=== PATIENT | female | born 1950 | race Caucasian/White ===

== ENCOUNTER 2022-02-10 12:39 | Outpatient (RCR) | payer MEDICARE, SELFPAY ==
--- NOTE | 2022-06-14 08:27 | ONC.NURNOTE ---
Prescription for mastectomy supplies faxed to [facility], .
== END 2022-08-09 23:59 | disposition home or self-care (01) ==
LOC: CCIC 12:39
PROVIDERS: PCP Emergency Medicine; Visit Provider Nurse Practitioner Family
DX: C50.912 Malignant neoplasm of unspecified site of left female breast (principal); Z17.0 Estrogen receptor positive status [ER+]; Z79.811 Long term (current) use of aromatase inhibitors; M85.80 Other specified disorders of bone density and structure, unspecified site
CPT/HCPCS: 99212; 99213; 99214

== ENCOUNTER 2022-03-22 09:28 | Outpatient (CLI) | payer MEDICARE, SELFPAY ==
[2022-03-22 14:32] LABS: Chloride* 92 mmol/L (96-114); Potassium* 4.6 mmol/L (3.6-5.1); Sodium* 129 mmol/L (135-149)
[2022-03-22 14:35] LABS: Blood Urea Nitrogen* 14 mg/dL (7-30); Carbon Dioxide* 29 mmol/L (20-32); Creatinine* 0.6 mg/dL (0.5-1.5); Estimated Glomerular Filt Rate 95 ml/min
[2022-03-22 14:36] LABS: Calcium* 9.5 mg/dL (8.4-10.6); Glucose* 89 mg/dL (60-115)
== END 2022-03-22 09:29 | disposition home or self-care (01) ==
LOC: LKVREF 09:28
PROVIDERS: PCP Emergency Medicine; Visit Provider Emergency Medicine
DX: E87.1 Hypo-osmolality and hyponatremia (principal); I10 Essential (primary) hypertension
CPT/HCPCS: 80048

== ENCOUNTER 2022-09-13 08:21 | Outpatient (CLI) | payer MEDICARE, SELFPAY | END 2022-09-13 08:22 | disposition home or self-care (01) | PROVIDERS: PCP Emergency Medicine; Visit Provider Emergency Medicine | DX: I10 Essential (primary) hypertension (principal); E87.1 Hypo-osmolality and hyponatremia; Z13.6 Encounter for screening for cardiovascular disorders | CPT/HCPCS: 80053; 80061 ==

== ENCOUNTER 2023-02-08 13:51 | Outpatient (RCR) | payer MEDICARE, SELFPAY | END 2023-08-07 23:59 | disposition home or self-care (01) | LOC: CCIC 13:51 | PROVIDERS: PCP Emergency Medicine; Visit Provider Physician Assistant | DX: C50.912 Malignant neoplasm of unspecified site of left female breast (principal); Z17.0 Estrogen receptor positive status [ER+]; Z79.811 Long term (current) use of aromatase inhibitors; Z90.13 Acquired absence of bilateral breasts and nipples; M85.80 Other specified disorders of bone density and structure, unspecified site | CPT/HCPCS: 99212; 99214; 99215 ==

== ENCOUNTER 2023-03-21 14:01 | Outpatient (CLI) | payer MEDICARE, SELFPAY | END 2023-03-21 14:02 | disposition home or self-care (01) | LOC: LKVREF 14:03 | PROVIDERS: PCP Emergency Medicine; Visit Provider Emergency Medicine | DX: Z01.818 Encounter for other preprocedural examination (principal) | CPT/HCPCS: 80048 ==

== ENCOUNTER 2023-03-22 09:03 | Outpatient (CLI) | payer MEDICARE, SELFPAY | END 2023-03-22 09:04 | disposition home or self-care (01) | PROVIDERS: PCP Emergency Medicine; Visit Provider Emergency Medicine | DX: Z00.00 Encounter for general adult medical examination without abnormal findings (principal); I10 Essential (primary) hypertension; E78.1 Pure hyperglyceridemia; R31.9 Hematuria, unspecified; Z13.6 Encounter for screening for cardiovascular disorders; Z13.1 Encounter for screening for diabetes mellitus | CPT/HCPCS: 80061; 80076; 82947 ==

== ENCOUNTER 2023-05-10 13:02 | Outpatient (CLI) | payer MEDICARE, SELFPAY ==
--- NOTE | 2023-05-10 13:30 | CRLHL7_ITS ---
For Patients: As a result of the Century Cures Act, medical imaging exams and procedure reports are released immediately into your electronic medical record. You may view this report before your referring provider. If you have questions, please contact your health care provider. DXA BONE MINERAL DENSITY STUDY Reason for exam: Osteopenia. Current height (inches): 65.0 Weight (lbs.): 145.0 Menopause age: 50 Ethnicity: White 1. Have you had a previous hip or vertebral fracture? No. 2. Have you had any fractures during your adult life which did not result from significant trauma (e.g., auto accident)? No. 3. Did either of your parents have a hip fracture? No. 4. Do you smoke? No. 5. Have you ever taken Glucocorticoids? No. 6. Do you have rheumatoid arthritis? No. 7. Do you have secondary osteoporosis? No. 8. Do you drink 3 or more alcoholic drinks per day? No. 9. Are you being treated for osteoporosis? No. 10. Have you ever taken any of the following medications: Actonel, Evista, Fosamax, Miacalcin, Reclast, Boniva, Forteo, HRT (i.e., estrogen/hormone therapy), Protelos, Prolia, Vitamin D, Calcium, other ??? please specify. ANSWER: Yes; vitamin D, calcium. 11. Do you have any of the following medical conditions: Anorexia or bulimia, asthma or emphysema, end stage renal disease, hyperparathyroidism, any seizure disorders, cancer, inflammatory bowel diseases, hysterectomy, other ??? please specify. ANSWER: Yes; cancer. 12. What was your maximum height (inches)? 66.5. 13. Do you perform weightbearing exercise regularly? Yes. 14. Do you regularly consume dairy products? Yes. 15. Do you drink caffeinated beverages? Yes. 16. At what age did your period start? 9. 17. Are you premenopausal? No. 18. How many full-term pregnancies have you had? 2. 19. Have you ever missed your period for more than 6 months in a row (not including or menopause)? No. TECHNIQUE: Bone mineral density study was performed using the [employer]. FINDINGS: The results of the study expressed as bone mineral density (BMD) are as follows: Lumbar Spine L1 to L2: BMD: 0.908 g/cm2. T-score: -0.6. Z-score: 1.6. Neck Left: BMD: 0.708 g/cm2. T-score: -1.3. Z-score: 0.8. Right: BMD: 0.701 g/cm2. T-score: -1.3. Z-score: 0.7. Total Left: BMD: 0.778 g/cm2. T-score: -1.3. Z-score: 0.4. Right: BMD: 0.785 g/cm2. T-score: -1.3. Z-score: 0.5. IMPRESSION: Osteopenia. COMPARISON: Compared with scan of 01/13/2021, the bone mineral density has increased by 2.5% at the spine and decreased by 0.1% at the hip. Compared with scan of 12/19/2018, the bone mineral density has decreased by 1.8% at the spine and increased by 5.6% at the hip. *Comparison exams done prior to 10/2019 were performed on different unit, [employer]. FRAX 10-year Fracture Risk Major Osteoporotic Fracture: 10% Hip Fracture: 1.9% Reported Risk Factors: [place] () Neck BMD = 0.701, BMI = 24.1 CHRISTIANO ALVARADO M.D. Diagnostic Radiologist [email or web address] Transcribed: 5:[address]/Dictated by: Christiano Alvarado MD @ 05/11/2023 8:16:00 AM (Electronically Signed)
== END 2023-05-10 13:03 | disposition home or self-care (01) ==
LOC: RAD 13:05
PROVIDERS: PCP Emergency Medicine; Visit Provider Nurse Practitioner Family
DX: M85.88 Other specified disorders of bone density and structure, other site (principal)
CPT/HCPCS: 77080

== ENCOUNTER 2023-05-15 12:17 | Outpatient (CLI) | payer MEDICARE, SELFPAY ==
--- OUTSIDE RECORDS SUMMARY | 2023-05-16 06:31 | XMS_ITS | Continuity of Care Document ---
Author Name Unknown Organization [facility] Address [address] [address] [place] [address] Phone Care Team Providers Care Buzzsaw Operator Name Role Phone Nicanor Hinds MD [...] Diagnoses Date Provider Providers Copied on Encounter [facility] [place], [address] [address], [place], [place], [id number], [place] tel:[phone] [facility] No Information 1 Lizet Vick. [address] [place] [address], [id number], [place]. tel:[phone] [facility], [address] [address], [place], [place], [id number], tel:[phone] [facility] No Information 0 Lizet Vick. [address]001 [facility], [address], [id number], . tel:[phone] [facility] [address] [address], [place], [place], [address], tel:[phone] [facility] Personal hx of colon polypColon polypDiverticu losis of colonHemorrhoi dsDiverticulos is Of ColonPersonal History Colon PolypsBenign Neoplasm ColonBenign neoplasm of colon, unspecifiedUns pecified hemorrhoidsDiv erticulosis of large intestine without perforation or abscess without bleedingPerson al history of colonic polyps Apr-1 5-201 5 No Information Referring Provider: [place], [address] [place], [address]. tel:[phone] [facility] [address] [address], [place], [place], [address], tel:[phone] [facility] Polyp-intes/re ct/stom-unc BehColon Cancer ScreeningFamil y Hx/Colonic PolypsRectal Polyp/BenignBe nign Neoplasm Lg Bowel Apr-0 5201 0 Orville Mcbride. [address] [facility] [address], [place], [place], [id number], [place]. tel:[phone] Referring Provider: Gar[place] Ponce [place] R, [address] [place], [address]. tel:[phone] [facility], [address] [address], [place], [place], [address], tel:[phone] [facility] No Information Jul-0 7-200 5 No Information Referring Provider: Garry Ponce [place] R, [address] [place], [address]. tel:[phone] Family History Family Member Type Diagnosis Age [...] No Information Instructions Date Instruction Additional Infor mation Colon Cancer Prevention Related to Colon polyp Colon Polyps Related to Colon polyp Diverticulosis/Diverticulitis Re lated to Colon polyp Hemorrhoids Related to Hemor rhoids High Fiber Diet Related to Hemor rhoids Assessments Type Assessment Date No Information Patient Care Teams Name Effective Dates (start - stop) Status Members No Information
== END 2023-05-15 12:18 | disposition home or self-care (01) ==
LOC: NFLDREF 05-16 06:30
PROVIDERS: PCP Emergency Medicine; Referring Provider Emergency Medicine; Visit Provider Physician Assistant
DX: R35.0 Frequency of micturition (principal); N39.0 Urinary tract infection, site not specified
CPT/HCPCS: 87086; 87186

== ENCOUNTER 2023-05-24 13:45 | Outpatient (CLI) | payer MEDICARE, SELFPAY ==
--- OUTSIDE RECORDS SUMMARY | 2023-05-24 13:48 | XMS_ITS | Clinical Summary ---
Author Name Unknown Organization [facility] Address [place], [place] [address] Care Team Providers Care Learning Designer Name Role Phone Nazia Morrison MD Primary Care Provider [phone] Allergies Active Allergy Reactions Criticality Noted Date Comments Unlisted Allergen (Include Detail In Comments) Rash,Edema 03/29/2023 Calcium Channel blockers, swelling in your feet and ankles Medications Medication Sig Dispensed Refills Start Date End Date Status multivit,iron,placer miner als/lutein (CENTRUM SILVER ULTRA WOMEN'S ORAL) Take 1 Tab by mouth once daily with lunch. 0 Active acetaminophen (TYLENOL EXTRA STRGTH) 500 mg tablet Take 1-2 tablets by mouth every 6 hours if needed (Headache). Max acetaminophen dose: 4000mg in 24 hrs. 0 05/23/2019 Active metoprolol tartrate (LOPRESSOR) 25 mg tabletIndications:H ypertension Take 1 tablet by mouth 2 times daily. 0 12/22/2019 Active calcium citrate/vitamin D2 (CALCIUM CITRATE WITH D ORAL) Take 1 tablet by mouth 2 times daily. 0 Active polyethylene glycol (MIRALAX) 17 g powder for solution Take 1 Packet by mouth once every other day. 0 Active aspirin (ECOTRIN) 81 mg enteric coated tabletIndications:I ntracranial aneurysm Take 1 tablet by mouth once daily with a meal. 0 07/05/2020 Active anastrozole (ARIMIDEX) 1 mg tablet Take 1 mg by mouth once daily. 0 11/08/2020 Active hydroCHLOROthiazide (HCTZ) 25 mg tablet Take 25 mg by mouth once daily. 0 01/23/2022 Active hydrocortisone 2.5% cream Apply topically to affected area(s) two times daily. APPLY TOPICALLY TO AFFECTED AREA(S) TWICE DAILY.* 0 01/04/2023 Active irbesartan (AVAPRO) 300 mg tablet Take 300 mg by mouth once daily. 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 IZA 12/30/2019 Antiplatelet or antithrombot ic long-term use: Clopidogrel/ASA 12/30/2019 Multiple intracranial aneurysms 04/08/2019 Overview: S/p endovascular WEB embolization of incidental 14mm ACOM aneurysm and 6.5mm right MCA bifurcation aneurysm on 05/22/2019. 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 WEB device is MRI compatible up to 3 Iza. HTN (hypertension) 04/08/2019 Former tobacco use 04/08/2019 History of breast cancer 11/05/2014 GERD (gastroesophageal reflux disease) 5 Osteopenia 08/10/2014 Encounters Date Type Department Care Team Description 03/30/2023 8:50 AM PROCESS SERVER - 03/30/2023 10:01 AM PROCESS SERVER Surgery [address] [address] Jaylen Raphael MD CYSTOSCOPY, RIGHT RETROGRADE PYELOGRAM, RIGHT URETEROSCOPY, RIGHT URETERAL STENT PLACEMENT 03/30/2023 8:39 AM PROCESS SERVER Anesthesia Event [address] [address] Sherrill Anglin MD Nolan Norman, Megan Maureen, MD 03/30/2023 6:57 AM PROCESS SERVER - 03/30/2023 12:42 PM PROCESS SERVER Hospital Encounter [address] [address] Jaylen Raphael MD Hydronephrosis, unspecified hydronephrosis type (Primary Dx) Discharge Disposition: Home Self Care 03/29/2023 Travel from Last 3 Months Immunizations Name Administration Dates Next Due COVID-19 vaccine (Moderna 100mcg/0.5mL) LISETTE ESTRADA 08/20/2020,07/23/2020 Social History Tobacco Use Types Packs/Day Years Used Date Smoking Tobacco: Former Cigarettes Q uit: 05/23/2017 Smokeless Tobacco: Never Tobacco Cessation:Counseling Given: Not Answered Alcohol Use Standard Drinks/Week Comments Yes 0 (1 standard drink = 0.6 oz pure alcohol) glass of wine maybe once per month Social Connections Answer Date Recorded Frequency of Communication with Friends and Fami ly Not on file 05/14/2021 Financial Resource Strain Answer Date R ecorded Difficulty of Paying Living Expenses Not on file 05/14/2021 Difficulty of Paying Living Expenses Not on file 05/14/2021 Sex and Gender Information Value Date Recorded Sex Assigned at Female 07/20/2020 10:05 AM PROCESS SERVER Gender Identity Female 07/20/2020 10:06 AM PROCESS SERVER Sexual Orientation Choose not to disclose 2020 10:48 AM PROCESS SERVER Obstetrics History Last Filed Vital Signs Vital Sign Reading Time Taken Comments Blood Pressure 130/66 03/30/2023 12:04 PM PROCESS SERVER Pulse 66 03/30/2023 12:04 PM PROCESS SERVER Temperature 36.4 ??C (97.6 ??F) 03/30/2023 12:[address] Respiratory Rate 16 03/30/2023 12:04 PM PROCESS SERVER Oxygen Saturation 99% 03/30/2023 12:04 PM PROCESS SERVER Inhaled Oxygen Concentration - - Weight 67.4 kg (148 lb 9.4 oz) 03/30/2023 7:27 A M PROCESS SERVER Height 165.1 cm (5' 5) 03/30/2023 7:27 AM PROCESS SERVER Body Mass Index 24.73 03/30/2023 7:27 AM PROCESS SERVER Plan of Treatment Health Maintenance Due Date Last Done Comments Tdap 1959 Depression screening for age 12+ 1960 BMI (ht and wt on same day) for age 18+ 1966 Hepatitis C screening for age 18-79 1966 Tetanus booster 1968 Lipids for age 45-75 1993 Zoster (shingles) series for age 50+ (1 of 2) 1998 DEXA/DXA scan for age 65+ 2013 Medicare Wellness for age 65+ 2013 Pneumococcal series for age 65+ (1 of 1 - PCV) 2013 COVID-19 vaccine series (3 - 2022-24 season) 2023 08/20/2020, 07/23/2020 Influenza for age 65+ 01/12/2023 Colonoscopy through age 75 11/30/203011/30, 11/30/2020, 11/30/2020 Medical Devices Implanted Type Area Adventure Therapist Device Identifier Shelf Expiration Date Model / Serial / Lot Stent Uret [id number] Percuflex Hydroplus - [id number] Implanted:Qty: 1 on 03/30/2023 by Jaylen Raphael MD at [facility] Right: [facility] 11/03/2025 [id number] / / [id number] Procedures Procedure Name Priority Date/Time Associated Diagnosis Comments XR RETROGRADE PYELOGRAM W/WO KUB Routine 03/30/2023 9:12 AM PROCESS SERVER SUPRAGLOTTIC-LMA Routine 03/30/2023 9:05 AM PROCESS SERVER CYSTOSCOPY PLACEMENT URETERAL STENT RETROGRADES 03/30/2023 8:29 AM PROCESS SERVER RIGHT HYRDRONEPHROSIS Case Notes AVERAGE - SWINGFLUOROSCOPY Special Needs 5 ft 5 in, 68 kg, BMI 24.96Last ASA 03/22/2023Restricted arm: LEFT CYSTOSCOPY RESECTION TRANSURETHRA BLADDER TUMOR 03/30/2023 8:29 AM PROCESS SERVER RIGHT HYRDRONEPHROSIS Case Notes AVERAGE - SWINGFLUOROSCOPY Special Needs 5 ft 5 in, 68 kg, BMI 24.96Last ASA 03/22/2023Restricted arm: LEFT SCAN-CARDIAC STRIP 03/30/2023 12:00 AM PROCESS SERVER from Last 3 Months Results * XR RETROGRADE PYELOGRAM W/WO KUB (03/30/2023 9:12 AM PROCESS SERVER) Anatomical Region Laterality Modality KIDNEYS, Abdomen Computed Radiog valorie 03/30/2023 9:12 AM PROCESS SERVER Narrative 03/30/2023 9:49 AM PROCESS SERVER For Patients: As a result of the Cures Act, medical imaging exams and procedure reports are released immediately into your electronic medical record. You may view this report before your referring provider. If you have questions, please contact your health care provider. EXAM: XR RETROGRADE PYELOGRAM W/WO KUB LOCATION: [facility] DATE: 03/30/2023 INDICATION: Right hydronephrosis. COMPARISON: None. TECHNIQUE: Exam performed by urologist. FLUOROSCOPIC TIME: 10 sec NUMBER OF IMAGES: 4 FINDINGS: 4 images taken during the course of right retrograde pyelogram, ureteroscopy and right ureteral stent placement. Stent in the appropriate position. No filling defects seen. Procedure Note Chriss Thakur MD - 03/30/2023 For Patients: As a result of the Cures Act, medical imagingexams and procedure reports are released immediately into your electronicmedical record. You may view this report before your referring provider.If you have questions, please contact your health care provider. EXAM: XR RETROGRADE PYELOGRAM W/WO KUB LOCATION: [facility] DATE: 03/30/2023 INDICATION: Right hydronephrosis. COMPARISON: None. TECHNIQUE: Exam performed by urologist. FLUOROSCOPIC TIME: 10 sec NUMBER OF IMAGES: 4 FINDINGS: 4 images taken during the course of right retrograde pyelogram,ureteroscopy and right ureteral stent placement. Stent in the appropriateposition. No filling defects seen. Jaylen Raphael MD GENERAL IMAGING * HCHG MASK PR5 (03/30/2023 9:05 AM PROCESS SERVER) Narrative William Nunes CRNA - 03/30/2023 9:05 AM PROCESS SERVER William Nunes CRNA ? 03/30/2023 ??9:06 AM Procedure: Supraglottic Patient location during procedure: OR Supraglottic Airway Properties Mask Ventilation: easy Type: unique Tube Size: 4 Placement Verification: auscultation and CO2 detection Assessment Assessment: atraumatic and dentition unchanged Sherrill Anglin MD ANESTHESIA PX NOTE ORDERABLES * SCAN-CARDIAC STRIP (03/30/2023 12:00 AM PROCESS SERVER) Narrative 03/30/2023 12:00 AM PROCESS SERVER Ordered by an unspecified provider. Other Clinical Staff OTHER from Last 3 Months Advance Directives Latest Code Status on File Code Status Date Activated Date Inactivated Comments Full Code 03/30/2023 7:18 AM 03/30/2023 2:48 PM Kaylee uld be discussed pre operatively with anesthesia or surgeon Question Answer Comments Code Status Discussion: Not Discussed Code Status History Code Status Date Activated Date Inactivated Comments Full Code 12/30/2019 6:01 AM 12/31/2019 1:16 PM Question Answer Comments Code Status Discussion: Discussed Full Code 05/22/2019 8:15 AM 05/23/2019 1:09 PM Question Answer Comments Code Status Discussion: Discussed Full Code 05/22/2019 5:53 AM 05/22/2019 8:15 AM Question Answer Comments Code Status Discussion: Other (specify i n comments): Will discuss on day of admission Care Teams Learning Designer Relationship Specialty Start Date End Date Nazia Morrison MD [address] [place] [address] PCP - General 04/07/19
--- OUTSIDE RECORDS SUMMARY | 2023-05-24 13:48 | XMS_ITS | Clinical Summary ---
Author Name Unknown Organization [facility] Address [address] [place] [address] Care Team Providers Care Biology Tutor Name Role Phone [facility], [facility] Primary Care Provider Allergies Active Allergy Reactions Criticality Noted Date Comments No Known Allergies 02/10/2003 Medications Medication Sig Dispensed Refills Start Date End Date Status Multiple Vitamins-Minerals (WOMENS MULTI PO) 0 Active Biotin 5000 MCG CAPS Take 1,000 mg by mouth 0 Active Wheat Dextrin (BENEFIBER PO) 0 Active losartan-hydrochloroth iazide (HYZAAR) 50-12.5 MG per tabletIndications:Edvin gn essential hypertension Take 1 tablet by mouth daily 30 tablet 12 10/08/2015 Active Calcium Carbonate-Vit D-Min (CALCIUM 1200 PO) Take 1 tablet by mouth daily 0 Active Active Problems Problem Noted Date Diagnosed Date History of breast cancer 11/05/2014 GERD (gastroesophageal reflux disease) 5 Hypertension goal BP (blood pressure) < 140/90 0 08/10/2014 Osteopenia 08/10/2014 Nevus 08/08/2013 Overview: Do you wish to do the replacement in the background? yes Vitamin D deficiency disease 07/04/2012 Advanced directives, counseling/discussion 05/25 Overview: Advance Directive Problem List Overview: Name Relationship Phone Primary Health Care Agent Alternative Health Care Agent Patient states has Advance Directive and will bring in a copy to clinic. 05/25/2011 CARDIOVASCULAR SCREENING; LDL GOAL LESS THAN 160 03/13/2010 Resolved Problems Problem Noted Date Diagnosed Date Resolved Date Benign hypertension 07/28/2010 08/11/19 15 Immunizations Name Administration Dates Next Due Influenza (High Dose) 3 carroll nt vaccine 01/27/2014 Influenza (IIV3) PF 01/23/2013, 1,02/06/2010, 008,03/11/2007,03/02/2006,04/26/2005 Pneumo Conj 13-V (2010&after) 10/08/2015 TD,PF 7+ (Tenivac) 11/03/1999 TDAP Vaccine (Adacel) 04/26/2010 Family History Medical History Relation Comments Substance Abuse Father Cerebrovascular Disease Maternal Grandfather Cerebrovascular Disease Maternal Grandmother Diabetes Maternal Grandmother Adult Onset Hypertension Maternal Grandmother Coronary Artery Disease Mother Diabetes Mother Borderline- adul t onset Hyperlipidemia Mother Hypertension Mother Substance Abuse Mother Colon Cancer Paternal Grandfather Relation Status Comments Daughter Alive Father Maternal Grandfather Maternal Grandmother Mother Alive Paternal Grandfather Paternal Grandmother Son Alive Social History Tobacco Use Types Packs/Day Years Used Date Smoking Tobacco: Former Cigarettes 30 Q uit: 03/09/2018 Smokeless Tobacco: Never Tobacco Cessation:Counseling Given: Yes Alcohol Use Standard Drinks/Week Comments No 0 (1 standard drink = 0.6 oz pur e alcohol) rarely PHQ-2 Answer Date Recorded PHQ-2 Score 0 05/21/2018 Adolescent Education Answer Date Record ed Getting School Help Needed Not on file 02/11 Sex and Gender Information Value Date Recorded Sex Assigned at Not on file Gender Identity Not on file Sexual Orientation Not on file Last Filed Vital Signs Vital Sign Reading Time Taken Comments Blood Pressure 162/86 04/07/2019 5:30 PM BOARD CERTIFIED MUSIC THERAPIST Pulse 76 04/07/2019 5:30 PM BOARD CERTIFIED MUSIC THERAPIST Temperature 37.2 ??C (98.9 ??F) 04/07/2019 3:27 PM CS T Respiratory Rate 16 04/07/2019 5:30 PM BOARD CERTIFIED MUSIC THERAPIST Oxygen Saturation 97% 04/07/2019 5:30 PM BOARD CERTIFIED MUSIC THERAPIST Inhaled Oxygen Concentration - - Weight 63.8 kg (140 lb 10.5 oz) 04/07/2019 3:27 PM BOARD CERTIFIED MUSIC THERAPIST Height 165.1 cm (5' 5) 03/28/2018 1:58 PM BOARD CERTIFIED MUSIC THERAPIST Body Mass Index 23.41 03/28/2018 1:58 PM BOARD CERTIFIED MUSIC THERAPIST Plan of Treatment Health Maintenance Due Date Last Done Comments ANNUAL REVIEW OF HM ORDERS 1948 CT COLONOGRAPHY 1950 FLEX SIG 1950 sDNA (Cologuard) 1950 COVID-19 Vaccine (#1) 1948 LUNG CANCER SCREENING 1998 RSV VACCINE ( & 60+) (1 - 1-dose 60+ series) 2008 FIT 05/25/2012 05/25/2011, 04/21/2010 ADVANCE CARE PLANNING 05/25/2016 05/25/2011 FALL RISK ASSESSMENT 10/07/2016 10/08/2015, 08/18/2014, 07/11/2013 MEDICARE ANNUAL WELLNESS VISIT 10/07/2016 10/08/2015, 08/18/2014, 07/11/2013, Additional history exists ZOSTER IMMUNIZATION (2 of 2) 11/08/2018 09/13/2018 LIPID 08/19/2019 08/18/2014, 06/15, 07/04/2012, Additional history exists BMP 10/06/2019 04/07/2019, 09/12, 08/18/2014, Additional history exists MAMMO SCREENING 12/13/2019 12/12/2017, 12/12, 07/13/2014, Additional history exists DTAP/TDAP/TD IMMUNIZATION (2 - Td or Tdap) 04/26/2020 04/26/2010, 11/03/1999 PHQ-2 (once per calendar year) 2022 10/08/2015 INFLUENZA VACCINE (#1) 2023 9, 01/14/2017, 01/24/2016, Additional history exists COLONOSCOPY 08/26/2024 08/26/2014, 0 09/2009, 07/18/2004, Additional history exists COLORECTAL CANCER SCREENING 08/26/2024 DEXA 04/26/2025 04/26/2010, 02/28/2004 HEPATITIS C SCREENING Completed 10/08/2015 Pneumococcal Vaccine: 65+ Years Completed 11/06/2016, 10/08/2015 HPV IMMUNIZATION Aged Out No longer e ligible based on patient's age to complete this topic IPV IMMUNIZATION Aged Out No longer e ligible based on patient's age to complete this topic MENINGITIS IMMUNIZATION Aged Out No l onger eligible based on patient's age to complete this topic RSV MONOCLONAL ANTIBODY Aged Out No l onger eligible based on patient's age to complete this topic Care Teams Biology Tutor Relationship Specialty Start Date End Date Clinic, [facility] [address] [place] [address] PCP - General 04/07/19
--- OUTSIDE RECORDS SUMMARY | 2023-05-24 13:48 | XMS_ITS | Referral Summary ---
Author Name Unknown Organization [facility] Address [address] [place] [address] Care Team Providers Care Regulated Program Manager Name Role Phone [facility], [facility] Primary Care Provider Allergies Active Allergy Reactions [...] 7+ (Tenivac) 11/03/1999 TDAP Vaccine (Adacel) 04/26/2010 Social History Tobacco Use Types Packs/Day Years [...] Comments Blood Pressure 162/86 04/07/2019 5:30 PM ONLINE MARKETING COORDINATOR Pulse 76 04/07/2019 5:30 PM ONLINE MARKETING COORDINATOR Temperature 37.2 ??C (98.9 ??F) 04/07/2019 3:27 PM CS T Respiratory Rate 16 04/07/2019 5:30 PM ONLINE MARKETING COORDINATOR Oxygen Saturation 97% 04/07/2019 5:30 PM ONLINE MARKETING COORDINATOR Inhaled Oxygen Concentration - - Weight 63.8 kg (140 lb 10.5 oz) 04/07/2019 3:27 PM ONLINE MARKETING COORDINATOR Height 165.1 cm (5' 5) 03/28/2018 1:58 PM ONLINE MARKETING COORDINATOR Body Mass Index 23.41 03/28/2018 1:58 PM ONLINE MARKETING COORDINATOR Plan of Treatment Not on file Care Teams Regulated Program Manager Relationship Specialty Start Date End Date Clinic, [facility] [address] [facility] [place] [address] PCP - General 04/07/19
--- OUTSIDE RECORDS SUMMARY | 2023-05-24 13:49 | XMS_ITS | Data Portability ---
Author Name Unknown Address [address] [place] [address] Phone [phone] Organization [facility] Address [address] [place] [address] Care Team Providers Care Chiropractor Sole Practitioner Name Role Phone PILAR MORRISON Primary Care Provider [phone] PILAR MORRISON Referring Provider [phone] Assessment Encounter Date Assessment Date Assessment LastModified by Organization Details LastModified Time 01/23/2023 01/23/2023 72 year old female with gross hematuria and right hydronephrosi s. Not available 01/23/2023 13:59:52 Plan of Treatment Reminders Order Date Submit Date Provider Last Modified By Organization Details Last Modified Time Details Appointments ESTABLISH ED VIDEO VISIT 15 2023 11:00A M Jaylen Raphael MD Not available Not available Not available Lab urinalysi s, dipstick 2022 023 [facility], [address], [place], [address], 01/23/2023 19:15:06 urinalysi s, microscop ic 2022 023 [facility], [address], [address], [place], [address], 01/23/2023 14:14:25 Referral None recorded. Procedures None recorded. Surgeries ureterosc opy with ureteral biopsy (SURG) 2022 023 elroy Not available 04/27/2023 08:50:57 Imaging None recorded. Medication Orders None recorded. Patient TargetsNo targets recorded. Patient Instructions Encounter Date Encounter Id Patient Instructions Last Modified By Organization Details Last Modified Time 01/23/2023 [id number] Gross hematuria/Right ureteral filling defect: We discussed the current guidelines as outlined by the [employer] regarding the evaluation of patients at risk for urothelial cell carcinoma. AUA Microscopic Risk Category: High Age > 60: Yes Smoking history of >30 pack years: No >25 RBC/HPF on single urine analysis: Yes History of gross hematuria: Yes Her CT urogram showed a filling defect in the right proximal ureter and I recommend a diagnostic ureteroscopy with possible biopsy of this. She will undergo a cystoscopy as part of this to evaluate the bladder as well. She understands the rationales, technical aspects, risks, and benefits and would like to proceed. Not available 01/23/2023 14:24:47 Reason for Referral None Reported. Results Created Date Observation Date Name Description Value Unit Range Abnormal Flag LastModifiedBy Organization Detail LastModifiedTime 01/24/2001/23/2023 UA WITHO UT MICRO - CS URISC AN blood - uriscan negati ve negati ve Not Available [facility] [address], [address], 01/23/2023 19:15:06 01/24/20 23 01/23/2023 UA WITHO UT MICRO - CS URISC AN bilirubin - uriscan negati ve mg/dL negati ve Not Available [facility] [address], [place], [address], 01/23/2023 19:15:06 01/24/20 23 01/23/2023 UA WITHO UT MICRO - CS URISC AN urobilinogen - uriscan normal mg/dL normal Not Available [facility] [address], [place], [address], 01/23/2023 19:15:06 01/24/20 23 01/23/2023 UA WITHO UT MICRO - CS URISC AN ketones - uriscan negati ve mg/dL negati ve Not Available [facility] [address] [facility] [address], [place], [address], 01/23/2023 19:15:06 01/24/20 23 01/23/2023 UA WITHO UT MICRO - CS URISC AN protein - uriscan negati ve mg/dL negati ve Not Available [facility] [address] [facility] [address], [place], [address], 01/23/2023 19:15:06 01/24/20 23 01/23/2023 UA WITHO UT MICRO - CS URISC AN nitrites - uriscan negati ve negati ve Not Available [facility] [address] [place] [address] [address], [place], [address], 01/23/2023 19:15:06 01/24/20 23 01/23/2023 UA WITHO UT MICRO - CS URISC AN glucose - uriscan negati ve mg/dL negati ve Not Available [facility] [address] [place] [address] [address], [place], [address], 01/23/2023 19:15:06 01/24/20 23 01/23/2023 UA WITHO UT MICRO - CS URISC AN pH - uriscan 5.00 5.00-9 .00 Not Available [facility] [address] [place] [address] [address], [place], [address], 01/23/2023 19:15:06 01/24/20 23 01/23/2023 UA WITHO UT MICRO - CS URISC AN sp. gravity - uriscan <=1.01 1.01-1 .03 Not Available [facility] [address] [place] [address] [address], [place], [address], 01/23/2023 19:15:06 01/24/20 23 01/23/2023 UA WITHO UT MICRO - CS URISC AN leukocytes - uriscan negati ve negati ve Not Available [facility] [address] [place] [address] [address], [place], [address], 01/23/2023 19:15:06 01/24/20 23 01/23/2023 UA WITHO UT MICRO - CS URISC AN color - uriscan yellow lt. yellow ;yello w Not Available [facility] [address] [facility] [address], [place], [address], 01/23/2023 19:15:06 01/24/20 23 01/23/2023 UA WITHO UT MICRO - CS URISC AN clarity - uriscan clear clear Not Available [facility] [address] [facility] [address], [place], [address], 01/23/2023 19:15:06 01/24/20 23 01/23/2023 UA WITHO UT MICRO - CS URISC AN total urine volume (mL) 45 /mL Not Available [facility] [address] [facility] [address], [place], [address], 01/23/2023 19:15:06 10/27/19 23 10/13/2022 CT, urogr am No observ ation record ed. Not Available 10/30/2022 15:22:36 03/30/20 23 03/30/2023 XR, pyelo gram No observ ation record ed. Formerly [facility] [address] [place], [address], 03/30/2023 11:06:03 Result Notes None recorded. Procedures Surgical History Date Name Laterality Status Provider Name and Address Organization Details Recorded Time 12/01/19 21 Diagnostic colonoscopy completed Not Available Health Note 01/19/2023 16:15:15 12/01/19 21 colonoscopy completed Venkata Meath kristian, [facility] 01/23/2023 14:38:09 04/17/20 20 Partial mastectomy completed Venkata Meath null, [facility] 01/23/2023 14:37:08 05/14/18 99 Partial mastectomy completed Venkata Meath null, [facility] 01/23/2023 14:37:32 Laparoscopy remove adnexa completed Not Available Health Note 01/19/2023 16:15:15 Imaging Results Imaging Date Name Status LastModified by Organiz ation Details LastModified Time 10/13/2022 CT, [facility]gram completed [email or web address] Information n ot available 10/30/2022 15:22:36 03/30/2023 XR, pyelogram [email or web address] [address], [place], [address], 03/30/2023 11:06:03 Procedure Notes None recorded. Medical Equipment None Reported. Allergies No known drug allergies Medications Name Sig Start Date Stop Date Status Note LastModified by Organization Details LastModified Time anastrozole 1 mg tablet 1mg 1/day active Not Available Not Availabl e Not Available cephalexin 500 mg capsule TAKE 1 CAPSULE BY MOUTH 3 TIMES DAILY FOR 5 DAYS* 01/23 completed Not Available Not Available Not Available hydrocortis one 2.5 % topical cream APPLY TOPICALLY TO AFFECTED AREA(S) TWICE DAILY.* active Not Available Not Available No t Available hydrochloro thiazide 25 mg tablet 25mg 1/day active Not Available Not Available No t Available mupirocin 2 % topical ointment APPLY TOPICALLY TO AFFECTED AREA(S) THREE TIMES DAILY FOR 2 WEEKS. active Not Available Not Available No t Available losartan 100 mg tablet TAKE ONE TABLET BY MOUTH DAILY active Not Available Not Available No t Available doxycycline hyclate 100 mg tablet TAKE ONE TABLET BY MOUTH TWICE DAILY 01/23 completed Not Available Not Available Not Available irbesartan 300 mg tablet 300mg 1/day active Not Available Not Available No t Available Tylenol Extra Strength 500 mg tablet 500mg 2 on occasion active Not Available Not Available No t Available metoprolol tartrate 25 mg tablet TAKE ONE TABLET BY MOUTH TWICE DAILY* active Not Available Not Available No t Available aspirin 81mg 1/day active Not Available Not Available No t Available metoprolol succ 25 mg-hydrochl orothiazide 12.5 mg tablet,ext. rel 24 hr 25mg 2/day active Not Available Not Available No t Available Centrum Silver Women 8 mg iron-400 mcg-50 mcg tablet Don? t know 1/day active Not Available Not Available No t Available Vitals Date Recorded Body weight Body mass index (BMI) Body height Provider Name and Address Organization Details Last Updated DateTime 01/23/2023 26211.80030 5346 g 25 kg/m2 165.1 cm Not Available Health Note 01/23/2023 09:06:20 Social History Question Answer Notes LastModified by Organizat ion Details LastModified Time Tobacco Smoking Status Former Smoker Not Available Health Note 01/19/2023 16:15:16 What Is Your Level Of Alcohol Consumption? Occasional Information not available 01/23/2023 What Is Your Level Of Caffeine Consumption? Moderate [email or web address] Information not available 01/19/2023 How Much Tobacco Do You Chew? None [email or web address] Information not available 01/19/2023 Do You Or Have You Ever Used E-cigarettes Or Vape? Never Used Electronic Cigarettes [email or web address] Information not available 01/19/2023 When Did You Quit Smoking? 1-5yearssincel [place] Information not available 01/23/2023 Number Of Pregnancies 2 [email or web address] Information not available 01/19/2023 Number Of Vaginal Deliveries 2 [email or web address] Information not available 01/19/2023 Number Of Caesarean Sections 0 [email or web address] Information not available 01/19/2023 Could You Be ? No [email or web address] Information not available 01/19/2023 What Was The Date Of Your Most Recent Tobacco Screening? 01/23/2023 [email or web address] Information not available 01/19/2023 Have You Ever Been Counseled For Unhealthy Alcohol Use? No Information not available 01/23/2023 What Is Your Relationship Status? Single [email or web address] Information not available 01/19/2023 Are You Sexually Active? No [email or web address] Information not available 01/19/2023 Do You Or Have You Ever Used Smokeless Tobacco? Never Used Smokeless Tobacco [email or web address] Information not available 01/19/2023 Do You Use Any Illicit Or Recreational Drugs? No [email or web address] Information not available 01/19/2023 Has Tobacco Cessation Counseling Been Provided? No Information not available 01/23/2023 How Many Years Have You Smoked Tobacco? 48 [email or web address] Information not available 01/19/2023 Do You Or Have You Ever Used Any Other Forms Of Tobacco Or Nicotine? No Information not available 01/23/2023 How Many Days In The Past Year Have You Consumed 4 Or More Drinks? 0 [email or web address] Information no t available 01/19/2023 Sex: Female Functional Status None recorded. Mental Status None recorded. Family History Relationship Description Onset Age of this Age Resolved Age Notes Maternal Grandmother Family history of diabetes mellitus Mother Family history of cardiac disorder Paternal Grandfather Family history of cancer Medical History Condition Response Sexually Transmitted Infection N Diabetes N Bleeding Disorder N High Blood Pressure Y Kidney Stones N Cancer Y Depression N Lung Disease N High Cholesterol N GERD/Acid Reflux Y Heart Disease N Gynecological History Statement/Question Response If Post Menopausal, Age at Menopause 38 Hormone Therapy N Sexually Active? N Obstetrics History GPAL:G 0 P 0 0 0 0 Immunizations Vaccine Type Date Status Provider Name and Address Organization Details Recorded Time SARS-COV-2 (COVID-19) vaccine, UNSPECIFIED 08/20/2020 completed Venkata Meath null, [facility] 01/23/2023 14:11:39 pneumococcal, unspecified formulation 05/14/2020 completed Venkata Meath null, [facility] 01/23/2023 14:11:39 influenza, unspecified formulation 01/12/2022 completed Venkata Meath null, [facility] 01/23/2023 14:11:39 zoster recombinant 07/12/2018 completed Venkata Meath null, [facility] 01/23/2023 14:11:39 zoster recombinant 09/13/2018 completed Venkata Meath null, [facility] 01/23/2023 14:11:39 influenza, high-dose, quadrivalent 01/13/2020 completed Venkata Meath null, [facility] 01/23/2023 14:11:39 influenza, high-dose, quadrivalent 01/14/2021 completed Venkata Meath null, [facility] 01/23/2023 14:11:39 influenza, high-dose, quadrivalent 01/20/2023 completed Venkata Meath null, [facility] 01/23/2023 14:11:39 influenza, high-dose, quadrivalent 02/06/2022 completed Venkata Meath null, [facility] 01/23/2023 14:11:39 COVID-19, mRNA, LNP-S, PF, 100 mcg/0.5mL dose or 50 mcg/0.25mL dose 07/23/2020 completed Venkata Meath null, [facility] 01/23/2023 14:11:39 COVID-19, mRNA, LNP-S, PF, 100 mcg/0.5mL dose or 50 mcg/0.25mL dose 08/20/2020 completed [facility] null, [facility] 01/23/2023 14:11:39 pneumococcal polysaccharide PPV23 11/06/2016 completed [facility] Meath null, [facility] 01/23/2023 14:11:39 Tdap 10/31/2016 completed [facility] Meath null, [facility] 01/23/2023 14:11:39 Tdap 04/21/2010 completed Venkata Meath null, [facility] 01/23/2023 14:11:39 Pneumococcal conjugate PCV 13 10/08/2015 completed Venkata Meath null, [facility] 01/23/2023 14:11:39 zoster live 09/14/2019 completed Venkata Meath null, [facility] 01/23/2023 14:11:39 Influenza, high dose seasonal 01/14/2017 completed Venkata Meath null, [facility] 01/23/2023 14:11:39 Influenza, high dose seasonal 01/14/2019 completed Ven[facility]ata Meath null, [facility] 01/23/2023 14:11:39 Influenza, high dose seasonal 01/24/2016 completed Ven[facility]ata Meath null, [facility] 01/23/2023 14:11:39 Influenza, seasonal, injectable 01/19/2013 completed Venkata Meath null, [facility] 01/23/2023 14:11:39 Influenza, seasonal, injectable 01/21/2012 completed Venkata Meath null, [facility] 01/23/2023 14:11:39 Influenza, seasonal, injectable 01/22/2011 completed Venkata Meath null, [facility] 01/23/2023 14:11:39 Influenza, seasonal, injectable 02/06/2010 completed Venkata Meath null, [facility] 01/23/2023 14:11:39 Influenza, seasonal, injectable 03/02/2006 completed Venkata Meath null, [facility] 01/23/2023 14:11:39 Influenza, seasonal, injectable 03/05/2008 completed Venkata Carneyrupa null, [facility] 01/23/2023 14:11:39 Influenza, seasonal, injectable 03/11/2007 completed Venkata Carneyrupa null, [facility] 01/23/2023 14:11:39 Influenza, seasonal, injectable 04/26/2005 completed Venkata Carneyrupa [place], [facility] 01/23/2023 14:11:39 Past Encounters Encounter ID Performer Location Encounter Start Date Encounter Closed Date Diagnosis/Indication [id number] Jaylen Raphael MD [facility] [address] [place] [address] 01/23/2023 09:06:15 01/23/2023 14:51:20 [place] hematuria Hydronephrosis Health Concerns Section Related Observation LastModified by Organization Detai ls LastModified Time None Recorded Concern Status LastModified by Organization Details LastModified Time None Recorded Advance Directives Directive None Recorded Payers Encounter Date Sequence Insurance Name Policy Number Policy Armenta Covered Member ID Armenta Member ID Guarantor Name 01/23/2023 1 [employer] COST [id number] Pippa Moore [id number] Pippa Moore Notes Date Note Type Note Provider Name and Address Organization Details Recorded Time 01/23/2023 text/html HPI Notes: This is a 72 year old female who is referred by Dr. Morrison for the evaluation and management of gross hematuria and right hydronephrosis. She developed gross hematuria on 09/25/2022. This prompted a CT urogram on 10/13/2022 which revealed right hydronephrosis with a transition point in the right proximal ureter. She denies flank pain. Her hematuria has resolved. She has a history of gross hematuria. She underwent a negative evaluation about 10 years ago. The patient is a non smoker. They deny any worrisome occupational exposures that would increase their risk for urothelial cell carcinoma. She denies any history of urologic malignancies. No history of nephrolithiasis. No history of prior pelvic radiation. Jaylen Raphael MD [address] [place] [address],[address], [place], [address], [facility] 01/23/2023 14:24:58 OBGyn Episode No OBEpisode recorded.
== END 2023-05-24 13:46 | disposition home or self-care (01) ==
LOC: LKVREF 13:46
PROVIDERS: PCP Emergency Medicine; Visit Provider Emergency Medicine
DX: N39.0 Urinary tract infection, site not specified (principal)
CPT/HCPCS: 87086

== ENCOUNTER 2023-09-11 09:58 | Outpatient (CLI) | payer MEDICARE, SELFPAY ==
--- OUTSIDE RECORDS SUMMARY | 2023-09-11 10:03 | XMS_ITS | Clinical Summary ---
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 Active acetaminophen (TYLENOL EXTRA STRGTH) 500 mg tablet Take 1-2 tablets by mouth every 6 hours if needed (Headache). Max acetaminophen dose: 4000mg in 24 hrs. 0 05/23/2019 Active metoprolol tartrate (LOPRESSOR) 25 mg tabletIndications:H ypertension Take 1 tablet by mouth 2 times daily. 0 12/22/2019 Active calcium citrate/vitamin D2 (CALCIUM CITRATE WITH D ORAL) Take 1 tablet by mouth 2 times daily. Active polyethylene glycol (MIRALAX) 17 g powder for solution Take 1 Packet by mouth once every other day. Active aspirin (ECOTRIN) 81 mg enteric coated tabletIndications:I ntracranial aneurysm Take 1 tablet by mouth once daily with a meal. 0 07/05/2020 Active anastrozole (ARIMIDEX) 1 mg tablet Take 1 mg by mouth once daily. 11/08/2020 Active hydroCHLOROthiazide (HCTZ) 25 mg tablet Take 25 mg by mouth once daily. 01/23/2022 Active hydrocortisone 2.5% cream Apply topically to affected area(s) two times daily. APPLY TOPICALLY TO AFFECTED AREA(S) TWICE DAILY.* 01/04/2023 Active irbesartan (AVAPRO) 300 mg tablet Take 300 mg by mouth once daily. 03/11/2023 Active Active Problems Problem Noted Date [...] GERD (gastroesophageal reflux disease) 5 Osteopenia 08/10/2014 Immunizations Name Administration Dates Next Due COVID-19 [...] Sex Assigned at Female 07/20/2020 10:05 AM JURY CONSULTANT Gender Identity Female 07/20/2020 10:06 AM JURY CONSULTANT Sexual Orientation Choose not to disclose 2020 10:48 AM JURY CONSULTANT Obstetrics History Last Filed Vital Signs Vital Sign Reading Time Taken Comments Blood Pressure 130/66 03/30/2023 12:04 PM JURY CONSULTANT Pulse 66 03/30/2023 12:04 PM JURY CONSULTANT Temperature 36.4 ??C (97.6 ??F) 03/30/2023 12:[address] Respiratory Rate 16 03/30/2023 12:04 PM JURY CONSULTANT Oxygen Saturation 99% 03/30/2023 12:04 PM JURY CONSULTANT Inhaled Oxygen Concentration - - Weight 67.4 kg (148 lb 9.4 oz) 03/30/2023 7:27 A M JURY CONSULTANT Height 165.1 cm (5' 5) 03/30/2023 7:27 AM JURY CONSULTANT Body Mass Index 24.73 03/30/2023 7:27 AM JURY CONSULTANT Plan of Treatment Upcoming Encounters Date Type Department Care Team (Late st Contact Info) Description 09/21/2023 10:30 AM CDT Appointment [facility] [address] [place] [id number] Health Maintenance Due Date Last Done Comments [...] PCV) 2013 COVID-19 vaccine series (3 - season) 2023 08/20/2020, 07/23/2020 Influenza for age 65+ 01/13/2024 Colonoscopy through age 75 11/30/203011/30, 11/30/2020, 11/30/2020 Medical Devices Implanted Type Area Route Service Manager Device Identifier Shelf Expiration Date Model / Serial / Lot Stent Uret [id number] Percuflex Hydroplus - [id number] Implanted:Qty: 1 on 03/30/2023 by Jaylen Raphael MD at [facility] Right: [employer] [facility] [facility] 11/03/2025 [id number] / / [id number] Procedures Procedure Name Priority Date/Time Associated Diagnosis Comments COLONOSCOPY 11/30/2020 9:18 AM CDT from Last 3 Months or Most Recently Relevant to Health Maintenance Results * COLONOSCOPY (11/30/2020 9:18 AM CDT) 11/30/2020 9:18 AM CDT Narrative Transcriptions Tristen Mckinney MD - 11/30/2020 10:35 AM CDT Patient Name: Pippa Moore Procedure Date: 11/30/2020 Gender: Female Date of : 1950 Admit Type: Outpatient Procedure: Colonoscopy Proceduralist: Tristen Mckinney MD , Vandana Bansal (Nurse) Indications/Pre-Op Diagnosis: Last colonoscopy: May 2015 Medications: Fentanyl 100 micrograms IV, Midazolam 3 mgIV, The level of sedation administered wasmoderate Procedure Description: The patient had risks, benefits and alternatives explained to andgave informed consent. The patient had a stable cardiopulmonary status and judged an adequate candidate for conscious sedation. The [id number] was passed through the anus and advanced tothe cecum, identified by appendiceal orifice and ileocecal valve. The colonoscopy was performed without difficulty. The patient toleratedthe procedure well. The quality of the bowel preparation was good. The ileocecal valve, appendiceal orifice, and rectum were photographed. Complications: No immediate complications. Estimated Blood Loss & Specimen: Estimated blood loss: none. Specimen collected - Yes and sent to Laboratory Findings: A 3 mm polyp was found in the ascending colon. The polyp was sessile. The polyp was removed with a cold biopsy forceps. Resection and retrieval were complete. A 4 mm polyp was found in the transverse colon. The polyp wassessile. The polyp was removed with a cold snare. Resection and retrieval were complete. A 3 mm polyp was found in the rectum. The polyp was sessile. Thepolyp was removed with a cold snare. Resection and retrieval werecomplete. The colon (entire examined portion) was significantly redundant. The exam was otherwise without abnormality on direct and retroflexion views. Impressions/Post-Op Diagnosis: - One 3 mm polyp in the ascending colon, removed with a cold biopsy forceps. Resected and retrieved. - One 4 mm polyp in the transverse colon, removed with a cold snare. Resected and retrieved. - One 3 mm polyp in the rectum, removed with a cold snare. Resectedand retrieved. - Redundant colon. - The examination was otherwise normal on direct and retroflexionviews. Recommendation: - Patient has a contact number available for emergencies. The signsand symptoms of potential delayed complications were discussed with the patient. Return to normal activities tomorrow. Written discharge instructions were provided to the patient. - Resume previous diet. - Continue present medications. - Await pathology results. - Repeat colonoscopy is recommended with colowrap/adult scope at hospital. The colonoscopy date will be determined after pathology results from today's exam become available for review. - For future colonoscopy the patient will require an extended preparation, peg 4-6L. If there are any questions, please contact the area captain. Moderate Sedation: Moderate (conscious) sedation was administered by the endoscopy nurse and supervised by the endoscopist. The following parameters were monitored: oxygen saturation, heart rate, respiratory rate, blood pressure, adequacy of pulmonary ventilation and reponse to care. Please refer to the patient's medical record flowsheets and nursing notes for moderate sedation details. Total physician intraservice time was 35 minutes. Tristen Mckinney MD 11/30/2020 10:35:44 AM This report has been signed electronically. Note Initiated On: 11/30/2020 9:18 AM Procedure Code(s): --- Professional --- 01905, Colonoscopy, flexible; with removalof tumor(s), polyp(s), or other lesion(s) bysnare technique 44473, 59, Colonoscopy, flexible; withbiopsy, single or multiple Diagnosis Code(s): --- Professional --- K63.5, Polyp of colon K62.1, Rectal polyp Q43.8, Other specified congenitalmalformations of intestine CPT copyright 2020 [employer]. All rights reserved. The codes documented in this report are preliminary and upon instructor watch assembly reviewmay be revised to meet current compliance requirements. Scope In: 9:56:35 AM Scope Withdrawal Time 0 hours 14 minutes 58 seconds Scope Out: 10:29:58 AM Tristen Mckinney MD PROCEDURE ORD from Last 3 Months or Most Recently Relevant to Health Maintenance Advance Directives * Full Code (Latest Code Status on File) Date Activated Date Inactivated Comments 03/30/2023 7:18 AM 03/30/2023 2:48 PM Should be discussed pre operatively with anesthesia or surgeon Question Answer Comments Code Status Discussion: Not Discussed * Full Code Date Activated Date Inactivated Comments 12/30/2019 6:01 AM 12/31/2019 1:16 PM Question Answer Comments Code Status Discussion: Discussed * Full Code Date Activated Date Inactivated Comments 05/22/2019 8:15 AM 05/23/2019 1:09 PM Question Answer Comments Code Status Discussion: Discussed * Full Code Date Activated Date Inactivated Comments 05/22/2019 5:53 AM 05/22/2019 8:15 AM Question Answer Comments Code Status Discussion: Other (specify in commen ts): Will discuss on day of admission Care Teams Air Conditioning Sheet Metal Installer Relationship Specialty Start Date End Date Nazia Morrison MD [id number] [place], [place] [address] PCP - General 04/07/19
--- OUTSIDE RECORDS SUMMARY | 2023-09-11 10:04 | XMS_ITS | Encounter Summary ---
Author Name Unknown Organization [facility] Address [address] [place] [id number] Care Team Providers Care Meters Superintendent Name Role Phone Clinic, [facility] Primary Care Provider Reason for Visit * Reason Comments Fall Encounter Details Date Type Department Care Team (Late st Contact Info) Description 07/07/2023 3:50 PM BENCH GRINDER - 07/07/2023 4:59 PM BENCH GRINDER Emergency [facility] Emergency Dept [address] [place] [id number] [phone] Jani Jauregui MD [facility] [address] [place], [place] [address] Closed head injury, initial encounter; Facial contusion, initial encounter; Strain of neck muscle, initial encounter; Hypertensive urgency Discharge Disposition: Home or Self Care Social History Tobacco Use Types Packs/Day Years Used Date Smoking Tobacco: Former Cigarettes 1 - 03/09/2018 Smokeless Tobacco: Never Alcohol Use Standard Drinks/Week Comments No 0 (1 standard drink = 0.6 oz pur e alcohol) rarely PHQ-2 Answer Date Recorded PHQ-2 Score 0 05/21/2018 Adolescent Education Answer Date Record ed Getting School Help Needed Not on file 02/11 Sex and Gender Information Value Date Recorded Sex Assigned at Not on file Gender Identity Not on file Sexual Orientation Not on file documented as of this encounter Last Filed Vital Signs Vital Sign Reading Time Taken Comments Blood Pressure 151/75 07/07/2023 4:59 PM BENCH GRINDER Pulse 67 07/07/2023 4:59 PM BENCH GRINDER Temperature 36.7 ??C (98 ??F) 07/07/2023 3:48 PM BENCH GRINDER Respiratory Rate 20 07/07/2023 4:59 PM BENCH GRINDER Oxygen Saturation 98% 07/07/2023 4:59 PM BENCH GRINDER Inhaled Oxygen Concentration - - Weight - - Height - - Body Mass Index - - documented in this encounter Discharge Instructions * Discharge Instructions* Jani Jauregui MD - 07/07/2023 4:51 PM BENCH GRINDER Discharge Instructions Head Injury You have been seen today for a head injury. Your evaluation included a history and physical examination. You may have had a CT (CAT) scan performed, though most head injuries do not require a scan. Based on this evaluation, your provider today does not feel that your head injury is serious. Generally, every Emergency Department visit should have a follow-up clinic visit with either a primary or a specialty clinic/provider. Please follow-up as instructed by your emergency provider today. Return to the Emergency Department if: You are confused or you are not acting right. Your headache gets worse or you start to have a really bad headache even with your recommended treatment plan. You vomit (throw up) more than once. You have a seizure. You have trouble walking. You have weakness or paralysis (cannot move) in an arm or a leg. You have blood or fluid coming from your ears or nose. You have new symptoms or anything that worries you. Sleeping: It is okay for you to sleep, but someone should wake you up if instructed by your provider, and someone should check on you at your usual time to wake up. Activity: Do not drive for at least [address] if you have dizzy spells or trouble concentrating, or remembering things. Do not return to any contact sports until cleared by your regular provider. MORE INFORMATION: Concussion: A concussion is a minor head injury that may cause temporary problems with the way the brain works. Although concussions are important, they are generally not an emergency or a reason that a person needs to be hospitalized. Some concussion symptoms include confusion, amnesia (forgetful), nausea (sick to your stomach) and vomiting (throwing up), dizziness, fatigue, memory or concentration problems, irritability and sleep problems. For most people, concussions are mild and temporary but some will have more severe and persistent symptoms that require on-going care and treatment. CT Scans: Your evaluation today may have included a CT scan (CAT scan) to look for things like bleeding or a skull fracture (broken bone). CT scans involve radiation and too many CT scans can cause serious health problems like cancer, especially in children. Because of this, your provider may not have ordered a CT scan today if they think you are at low risk for a serious or life threatening problem. If you were given a prescription for medicine here today, be sure to read all of the information (including the package insert) that comes with your prescription. This will include important information about the medicine, its side effects, and any warnings that you need to know about. The pharmacist who fills the prescription can provide more information and answer questions you may have about the medicine. If you have questions or concerns that the pharmacist cannot address, please call or return to the Emergency Department. Remember that you can always come back to the Emergency Department if you are not able to see your regular provider in the amount of time listed above, if you get any new symptoms, or if there is anything that worries you. Discharge Instructions Neck Strain You have been seen today for a neck sprain or strain. Neck strains usually result from an injury tothe neck. Car accidents, contact sports, and falls are common causes of neck strain. Sometimes yourneck can start to hurt because of increased activity, muscle tension, an abnormal sleeping position, or because of other problems like arthritis in the neck. Neck pain usually comes from injured muscles and ligaments. Sometimes there is a herniated (???slipped?? ) disc. We do not usually do MRI scans to look for these right away, since most herniated discs will get better on their own with time. Today, we did not find any evidence that your neck pain was caused by a serious or dangerous condition. However, sometimes symptoms develop over time and cannot be found during an emergency visit, so it is very important that you follow up with your primary provider. Generally, every Emergency Department visit should have a follow-up clinic visit with either a primary or a specialty clinic/provider. Please follow-up as instructed by your emergency provider today. Return to the Emergency Department if: You have increasing pain in your neck. You develop difficulty swallowing or breathing. You have numbness, weakness, or trouble moving your arms or legs. You have severe dizziness and difficulty walking. You are unable to control your bladder or bowels. You develop severe headache or ringing in the ears. What can I do to help myself at home? If you had an injury, use cold for the first 1-2 days. Cold helps relieve pain and reduce inflammation. Apply ice packs to the neck or areas of pain every 1-2 hours for 20 minutes at a time. Place a towel or cloth between your skin and the ice pack. After the first 2 days, using heat can help with neck pain and stiffness. You may use a warm showeror bath, warm towels on the neck, or a heating pad. Do not sleep with a heating pad, as you can be burned. Pain medications - You may take a pain medication such as Tylenol?? (acetaminophen), Advil?? and Motrin?? (ibuprofen), or Aleve?? (naproxen). It is usually best to rest the neck for 1-2 days after an injury, then start gentle stretching exercises. It is helpful to place a small pillow under the nape of your neck to provide proper neutral positioning. You should stay active and do your usual work as much as you can, unless this involves heavy physical labor. Ask your provider if you need work restrictions. If you were given a prescription for medicine here today, be sure to read all of the information (including the package insert) that comes with your prescription. This will include important information about the medicine, its side effects, and any warnings that you need to know about. The pharmacist who fills the prescription can provide more information and answer questions you may have about the medicine. If you have questions or concerns that the pharmacist cannot address, please call or return to the Emergency Department. Remember that you can always come back to the Emergency Department if you are not able to see your regular provider in the amount of time listed above, if you get any new symptoms, or if there is anything that worries you. H GRINDER documented in this encounter Medications at Time of Discharge Medication Sig Dispensed Refills Start Date End Date Biotin 5000 MCG CAPS Take 1,000 mg by mouth Calcium Carbonate-Vit D-Min (CALCIUM 1200 PO) Take 1 tablet by mouth daily losartan-hydrochlorothiazi de (HYZAAR) 50-12.5 MG per tabletIndications:Benign essential hypertension Take 1 tablet by mouth daily 30 tablet 12 10/08/2015 Multiple Vitamins-Minerals (WOMENS MULTI PO) Wheat Dextrin (BENEFIBER PO) documented as of this encounter ED Notes * Ryan Duran RN - 07/07/2023 3:46 PM CST Mechanical trip and fall around 1500. C/O nose pain, left eyebrow pain. Denies blood thinners. H GRINDER * Jani Jauregui MD - 07/07/2023 3:35 PM CST History Chief Complaint: Fall HPI Pippa Moore is a 73 year old female who presents with daughter for evaluation of injury sustained after mechanical fall. Prior to arrival, patient was walking after leaving a when she tripped on the sidewalk, landing forward and striking her head on the sidewalk. She denies loss of consciousness. She sustained some abrasions to her hands but denies any other injury. Her neck is slightly sore. She had some transient epistaxis. No other injuries. 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 Z NONSPECIFIC PROCEDURE s/p tonsillectomy ZZ NONSPECIFIC PROCEDURE breast [id number] [facility] NONSPECIFIC PROCEDURE s/p breast implants Physical Exam Patient Vitals for the past 24 hrs: BP Temp Temp src Pulse Resp SpO2 07/07/23 1659 (!) 151/75 -- -- 67 20 98 % 07/07/23 1548 (!) 191/102 98 ??F (36.7 ??C) Temporal 75 20 98 % Physical Exam VS: Reviewed per above HENT: Mucous membranes moist, no nuchal rigidity. Mild tenderness across the posterior neck. Mild tenderness of the nasal bridge. No evidence of active epistaxis. No maxillary bone tenderness. No trismus. EYES: sclera anicteric, left eyebrow contusion. EOMI, PERRL CV: Rate as noted RESP: Effort normal. GI: no tenderness/rebound/guarding, not distended. NEURO: GCS 15, cranial nerves II through XII are intact, 5 out of 5 strength in all 4 extremities, sensation is intact light touch in all 4 extremities. No ataxia. MSK: No deformity of the extremities. No focal bony tenderness of the bilateral hands or pain with passive range of motion of the joints of the bilateral upper extremities. No chest wall tenderness. SKIN: Warm and dry, abrasions of the bilateral palms. Emergency Department Course Imaging: CT Cervical Spine w/o Contrast Final Result IMPRESSION: HEAD CT: 1. No acute intracranial process. CERVICAL SPINE CT: 1. No acute fracture. Head CT w/o contrast Final Result IMPRESSION: HEAD CT: 1. No acute intracranial process. CERVICAL SPINE CT: 1. No acute fracture. Emergency Department Course & Assessments: Interventions: Medications acetaminophen (TYLENOL) tablet 1,000 mg (1,000 mg Oral $Given 07/07/23 1601) Disposition: The patient was discharged. Impression & Plan Medical Decision Making: Patient presents with daughter for evaluation of injury sustained after mechanical fall. Vital signs reassuring aside from presenting elevated blood pressure, which improved on recheck without intervention. On exam patient has abrasions to the bilateral hands but no signs of bony injury to the upper extremities. As patient did strike her face, CT imaging of the head and neck was obtained due to possible extension type injury and some neck soreness. Fortunately no acute cervical injury or intracranial injury identified on CT imaging. No clinical signs of displaced facial bone fracture. Discussed small and unlikely risk of delayed head bleed after negative neuroimaging and symptoms of this with patient and daughter. Discussed symptoms of concussion. Primary care follow-up recommended. Return precautions discussed. Diagnosis: ICD-10-CM 1. Closed head injury, initial encounter S09.90XA 2. Facial contusion, initial encounter S00.83XA 3. Strain of neck muscle, initial encounter S16.1XXA 4. Hypertensive urgency I16.0 Discharge Medications: Discharge Medication List as of 07/07/2023 4:53 PM Jani Jauregui MD 07/07/23 1726 H GRINDER documented in this encounter Plan of Treatment Not on file documented as of this encounter Procedures Procedure Name Priority Date/Time Associated Diagnosis Comments CT CERVICAL SPINE W/O CONTRAST STAT 07/07/2023 4:[address] HEAD W/O CONTRAST STAT 07/07/2023 4:17 PM BENCH GRINDER documented in this encounter Results * CT Cervical Spine w/o Contrast (07/07/2023 4:19 PM BENCH GRINDER) Anatomical Region Laterality Modality Spine, SUBRAD CT NEURO, SUBR AD CT NEURO, UMP CT SPINE, RAD CT Computed Tomography 07/07/2023 4:19 PM BENCH GRINDER Impressions 07/07/2023 4:43 PM BENCH GRINDER IMPRESSION: HEAD CT: 1. ??No acute intracranial process. CERVICAL SPINE CT: 1. ??No acute fracture. Narrative 07/07/2023 4:43 PM BENCH GRINDER EXAM: CT HEAD W/O CONTRAST, CT CERVICAL SPINE W/O CONTRAST LOCATION: [facility] DATE: 07/07/2023 INDICATION: fall, hit left side of head, headache, neck pain COMPARISON: CTA head and neck 04/07/2019 TECHNIQUE: 1) Routine CT Head without IV contrast. Multiplanar reformats. Dose reduction techniques were used. 2) Routine CT Cervical Spine without IV contrast. Multiplanar reformats. Dose reduction techniques were used. 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 No intracranial hemorrhage, extraaxial collection, or mass effect. ??No CT evidence of acute infarct. Normal parenchymal attenuation. Unchanged mild generalized volume loss. No hydrocephalus. VISUALIZED ORBITS/SINUSES/MASTOIDS: No intraorbital abnormality. No paranasal sinus mucosal disease. No middle ear or mastoid effusion. BONES/SOFT TISSUES: No acute abnormality. CERVICAL SPINE CT: VERTEBRA: Normal vertebral body heights. No fracture or posttraumatic subluxation. CANAL/FORAMINA: No high-grade spinal canal stenosis. PARASPINAL: No extraspinal abnormality. Visualized lung felix are clear. Procedure Note Antonio Toney MD - 07/07/2023 EXAM: CT HEAD W/O CONTRAST, CT CERVICAL SPINE W/O CONTRAST LOCATION: [facility] DATE: 07/07/2023 INDICATION: fall, hit left side of head, headache, neck pain COMPARISON: CTA head and neck 04/07/2019 TECHNIQUE: 1) Routine CT Head without IV contrast. Multiplanar reformats. Dosereduction techniques were used. 2) Routine CT Cervical Spine without IV contrast. Multiplanar reformats.Dose reduction techniques were used. 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 No intracranialhemorrhage, extraaxial collection, or mass effect. No CT evidence ofacute infarct. Normal parenchymal attenuation. Unchanged mild generalized volume loss. No hydrocephalus. VISUALIZED ORBITS/SINUSES/MASTOIDS: No intraorbital abnormality. Noparanasal sinus mucosal disease. No middle ear or mastoid effusion. BONES/SOFT TISSUES: No acute abnormality. CERVICAL SPINE CT: VERTEBRA: Normal vertebral body heights. No fracture or posttraumaticsubluxation. CANAL/FORAMINA: No high-grade spinal canal stenosis. PARASPINAL: No extraspinal abnormality. Visualized lung felix areclear. IMPRESSION: HEAD CT: 1. No acute intracranial process. CERVICAL SPINE CT: 1. No acute fracture. Jani Jauregui [place] [facility] [place] * Head CT w/o contrast (07/07/2023 4:17 PM BENCH GRINDER) Anatomical Region Laterality Modality Head, SUBRAD CT NEURO, SUBRA D CT NEURO, UMP CT NEURO, RAD CT Computed Tomography 07/07/2023 4:17 PM BENCH GRINDER Impressions 07/07/2023 4:43 PM BENCH GRINDER IMPRESSION: HEAD CT: 1. ??No acute intracranial process. CERVICAL SPINE CT: 1. ??No acute fracture. Narrative 07/07/2023 4:43 PM BENCH GRINDER EXAM: CT HEAD W/O CONTRAST, CT CERVICAL SPINE W/O CONTRAST LOCATION: [facility] DATE: 07/07/2023 INDICATION: fall, hit left side of head, headache, neck pain COMPARISON: CTA head and neck 04/07/2019 TECHNIQUE: 1) Routine CT Head without IV contrast. Multiplanar reformats. Dose reduction techniques were used. 2) Routine CT Cervical Spine without IV contrast. Multiplanar reformats. Dose reduction techniques were used. 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 No intracranial hemorrhage, extraaxial collection, or mass effect. ??No CT evidence of acute infarct. Normal parenchymal attenuation. Unchanged mild generalized volume loss. No hydrocephalus. VISUALIZED ORBITS/SINUSES/MASTOIDS: No intraorbital abnormality. No paranasal sinus mucosal disease. No middle ear or mastoid effusion. BONES/SOFT TISSUES: No acute abnormality. CERVICAL SPINE CT: VERTEBRA: Normal vertebral body heights. No fracture or posttraumatic subluxation. CANAL/FORAMINA: No high-grade spinal canal stenosis. PARASPINAL: No extraspinal abnormality. Visualized lung felix are clear. Procedure Note Antonio Toney MD - 07/07/2023 EXAM: CT HEAD W/O CONTRAST, CT CERVICAL SPINE W/O CONTRAST LOCATION: [facility] DATE: 07/07/2023 INDICATION: fall, hit left side of head, headache, neck pain COMPARISON: CTA head and neck 04/07/2019 TECHNIQUE: 1) Routine CT Head without IV contrast. Multiplanar reformats. Dosereduction techniques were used. 2) Routine CT Cervical Spine without IV contrast. Multiplanar reformats.Dose reduction techniques were used. 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 No intracranialhemorrhage, extraaxial collection, or mass effect. No CT evidence ofacute infarct. Normal parenchymal attenuation. Unchanged mild generalized volume loss. No hydrocephalus. VISUALIZED ORBITS/SINUSES/MASTOIDS: No intraorbital abnormality. Noparanasal sinus mucosal disease. No middle ear or mastoid effusion. BONES/SOFT TISSUES: No acute abnormality. CERVICAL SPINE CT: VERTEBRA: Normal vertebral body heights. No fracture or posttraumaticsubluxation. CANAL/FORAMINA: No high-grade spinal canal stenosis. PARASPINAL: No extraspinal abnormality. Visualized lung felix areclear. IMPRESSION: HEAD CT: 1. No acute intracranial process. CERVICAL SPINE CT: 1. No acute fracture. Bg Richardson IMG CT ORDERABLE S documented in this encounter Visit Diagnoses Diagnosis Closed head injury, initial encounter Facial contusion, initial encounter Strain of neck muscle, initial encounter Hypertensive urgency Unspecified essential hypertension documented in this encounter Administered Medications Inactive Administered Medications - up to 3 most recent administrations Medication Order MAR Action Action Date Dose Rate Site acetaminophen (TYLENOL) tablet 1,000 mg 1,000 mg, Oral, ONCE, On 07/07/23 at 1600, For 1 dose, Maximum acetaminophen dose from all sources = 75 mg/kg/day not to exceed 4 gram $Given 07/07/2023 4:01 PM BENCH GRINDER 1,000 mg documented in this encounter Active and Recently Administered Medications Times are shown in BENCH GRINDER. Scheduled Medication Order 07/05/2023 07/06/2023 07/07/2023 acetaminophen (TYLENOL) tablet 1,000 mg (COMPLETED) 1,000 mg, Oral, ONCE, On 07/07/23 at 1600, For 1 dose, Maximum acetaminophen dose from all sources = 75 mg/kg/day not to exceed 4 gram 1601 ($Given - Provi aubree: Layo Guerrero RN) documented in this encounter Care Teams Meters Superintendent Relationship Specialty Start Date End Date Clinic, [place] [id number] PCP - General 04/07/19 documented as of this encounter
--- OUTSIDE RECORDS SUMMARY | 2023-09-11 10:04 | XMS_ITS | Data Portability ---
Author Name Unknown Address [address] [place] [address] Phone [phone] Organization [facility] Address [address] [place] [address] Care Team Providers Care Motor Vehicles Inspector Name Role Phone PILAR MORRISON Primary Care Provider PILAR MORRISON Referring Provider Assessment Encounter Date Assessment Date Assessment LastModified by Organization Details LastModified Time 01/23/2023 01/23/2023 72 year old female with gross hematuria and right hydronephrosi s. Not available 01/23/2023 13:59:52 06/12/2023 06/12/2023 73 year old female with a history of gross hematuria and right hydronephrosi s. Not available 06/12/2023 11:33:41 Plan of Treatment Reminders Order Date Submit Date Provider Last Modified By Organization Details Last Modified Time Details Appointments None recorded. Lab urinalysis, dipstick 2022 023 [facility], [address], [address], [place], [address], 3 19:15:06 urinalysis, microscopic 2022 023 [facility], [address], [address], [place], [address], 4 05:01:37 Referral None recorded. Procedures None recorded. Surgeries ureteroscop y with ureteral biopsy (SURG) 2022 023 [email or web address] Not available 3 08:50:57 Imaging [place], kidney scan - LASIX RENOGRAM - please administer Lasix per your standard protocol. 2023 024 [email or web address] [facility], [address], [place], [address], 4 12:01:17 Medication Orders None recorded. Patient TargetsNo targets recorded. Patient Instructions Encounter Date Encounter Id Patient Instructions Last Modified By Organization Details Last Modified Time 06/12/2023 [id number] Right hydronephrosis: The area of interest showed no evidence of malignancy. She still did show hydronephrosis and we should evaluate if this is a functional obstruction. I recommend we obtain a lasix renogram. I will call her with the results. Gross hematuria: This does not seem to have been related to malignancy. Continue to monitor and we will repeat a urine analysis in 1 year. Time for visit: 15 minutes Not available 06/12/2023 12:02:50 01/23/2023 [id number] Gross hematuria/Right ureteral filling defect: We discussed the current guidelines as outlined by the [place] [employer] regarding the evaluation of patients [...] Range Abnormal Flag LastModifiedBy Organization Detail LastModifiedTime 01/24/20 23 01/23/2023 UA WITHO UT MICRO - CS URISC AN blood - uriscan negati ve negati ve Not Available [facility] [address], [place], [address], 01/23/2023 19:15:06 01/24/20 23 01/23/2023 UA WITHO UT MICRO - CS URISC AN bilirubin - uriscan negati ve mg/dL negati ve Not Available [facility] [address], [place], [address], 01/23/2023 19:15:06 01/24/20 23 01/23/2023 UA WITHO UT MICRO - CS URISC AN urobilinogen - uriscan normal mg/dL normal Not Available [facility] [address], [place], [address], 01/23/2023 19:15:06 01/24/20 23 01/23/2023 UA WITHO UT MICRO - CS URISC AN ketones - uriscan negati ve mg/dL negati ve Not Available [facility] [address], [place], [address], 01/23/2023 19:15:06 01/24/20 23 01/23/2023 UA WITHO UT MICRO - CS URISC AN protein - uriscan negati ve mg/dL negati ve Not Available [facility] [address], [place], [address], 01/23/2023 19:15:06 01/24/20 23 01/23/2023 UA WITHO UT MICRO - CS URISC AN nitrites - uriscan negati ve negati ve Not Available [facility] [address], [place], [address], 01/23/2023 19:15:06 01/24/20 23 01/23/2023 UA WITHO UT MICRO - CS URISC AN glucose - uriscan negati ve mg/dL negati ve Not Available [facility] [address], [place], [address], 01/23/2023 19:15:06 01/24/20 23 01/23/2023 UA WITHO UT MICRO - CS URISC AN pH - uriscan 5.00 5.00-9 .00 Not Available [facility] [address], [place], [address], 01/23/2023 19:15:06 01/24/20 23 01/23/2023 UA WITHO UT MICRO - CS URISC AN sp. gravity - uriscan <=1.01 1.01-1 .03 Not Available [facility] [address] [place] [address] [address], [place], [address], 01/23/2023 19:15:06 01/24/20 23 01/23/2023 UA WITHO UT MICRO - CS URISC AN leukocytes - uriscan negati ve negati ve Not Available [facility] [address] [place] [address] [address], [place], [address], 01/23/2023 19:15:06 01/24/20 23 01/23/2023 UA WITHO UT MICRO - CS URISC AN color - uriscan yellow lt. yellow ;yello w Not Available [facility] [address] [place] [address] [address], [place], [address], 01/23/2023 19:15:06 01/24/20 23 01/23/2023 UA WITHO UT MICRO - CS URISC AN clarity - uriscan clear clear Not Available [facility] [address] [place] [address] [address], [place], [address], 01/23/2023 19:15:06 01/24/20 23 01/23/2023 UA WITHO UT MICRO - CS URISC AN total urine volume (mL) 45 /mL Not Available [facility] [address] [place] [address] [address], [place], [address], 01/23/2023 19:15:06 10/27/19 23 10/13/2022 CT, urogr am No observ ation record ed. Not Available 10/30/2022 15:22:36 11/1703/30/2023 XR, pyelo gram No observ ation record ed. [facility] [address], [place], [address], 06/12/2023 12:02:23 Result Notes None recorded. Problems Name Status Onset Date Resolution Date Notes Provider Name and Address Organization Details Recorded Time [place] hematuria Active 024 Venkata Meath null, [facility] 06/05/2023 15:09:01 Hydronephrosis Active 024 Venkata Meath null, [facility] 06/05/2023 15:09:06 Hypertensive disorder Active 024 Venkata Meath null, [facility] 06/05/2023 15:10:02 Aneurysm Active 024 Venkata Meath null, [facility] 06/05/2023 15:10:08 Cataract Active 024 Venkata Meath null, [facility] 06/05/2023 15:10:20 Gastroesophageal reflux disease Active 024 Venkata Meath null, [facility] 06/05/2023 15:10:24 Adenomatous polyp of colon Active 024 Venkata Meath null, [facility] 06/05/2023 15:10:33 History of malignant neoplasm of breast Active 024 Venkata Meath null, [facility] 06/05/2023 15:10:44 Problem Notes None recorded. Procedures Surgical History Date Name Laterality Status Provider Name and Address Organization Details Recorded Time 06/12/19 24 COMPLEX VISIT completed Jaylen Raphael MD [address], [place], [address], [facility] 06/12/2023 12:03:05 12/01/19 21 Colonoscopy completed Venkata Meath null, [facility] 06/05/2023 15:11:13 04/17/20 20 Partial mastectomy completed Venkata Meath null, [facility] 01/23/2023 14:37:08 05/14/18 99 Partial mastectomy completed Venkata Meath null, [facility] 01/23/2023 14:37:32 Laparoscopy remove adnexa completed Not Available Health Note 01/19/2023 16:15:15 Imaging Results Imaging Date Name Status LastModified by Organiz ation Details LastModified Time 10/13/2022 [email or web address] available 10/30/2022 15:22:36 03/30/2023 [email or web address] [address], [place], [address], 06/12/2023 12:02:23 Procedure Notes None recorded. Medical Equipment None Reported. Allergies No known drug allergies Medications Name Sig Start Date Stop Date Status Note LastModified by Organization Details LastModified Time anastrozo le 1 mg tablet TAKE 1 TABLET BY MOUTH DAILY* active Not Available Not Available No t Available aspirin 81 mg tablet,de layed release Take 1 tablet every day by oral route. active Not Available Not Available No t Available cephalexi n 500 mg capsule take 1 capsule by mouth twice a day for 7 days* 06/12 completed Not Available Not Available Not Available omeprazol e 20 mg capsule,d elayed release Take 1 capsule every day by oral route. active Not Available Not Available No t Available hydrocort isone 2.5 % topical cream APPLY TOPICALL Y TO AFFECTED AREA(S) TWICE DAILY. active Not Available Not Available No t Available hydrochlo rothiazid e 25 mg tablet TAKE ONE TABLET BY MOUTH DAILY* active Not Available Not Available No t Available mupirocin 2 % topical ointment APPLY TOPICALL Y TO AFFECTED AREA(S) THREE TIMES DAILY FOR 2 WEEKS. 06/12 completed HN: Patient reports no longer taking Not Available Not Available Not Available losartan 100 mg tablet TAKE ONE TABLET BY MOUTH DAILY 06/12 completed HN: Patient reports no longer taking Not Available Not Available Not Available doxycycli ne hyclate 100 mg tablet TAKE ONE TABLET BY MOUTH TWICE DAILY 01/23 completed Not Available Not Available Not Available irbesarta n 300 mg tablet TAKE 1 TABLET BY MOUTH DAILY.* active Not Available Not Available No t Available Tylenol Extra Strength 500 mg tablet 500mg 2 on occasion active Not Available Not Available No t Available metoprolo l tartrate 25 mg tablet TAKE ONE TABLET BY MOUTH TWICE DAILY* active Not Available Not Available No t Available nitrofura ntoin monohydra te/macroc rystals 100 mg capsule Take 1 capsule by mouth every 12 hours for 5 days; must administ er with a meal/cameron d* 06/12 completed Not Available Not Available Not Available aspirin 81mg 1/day 06/05 completed Not Available Not Available Not Available metoprolo l succ 25 mg-hydroc hlorothia zide 12.5 mg tablet,ex t.rel 24 hr 25mg 2/day 06/12 completed HN: Patient reports no longer taking Not Available Not Available Not Available Centrum Silver Women 8 mg iron-400 mcg-50 mcg tablet Don? t know 1/day active Not Available Not Available No t Available Vitals Date Recorded Body weight Body mass index (BMI) Body height Provider Name and Address Organization Details Last Updated DateTime 01/23/2023 00205.91870 5346 g 25 kg/m2 165.1 cm Not Available Health Note 01/23/2023 09:06:20 Date Recorded Body height Body mass index (BMI) Body weight Provider Name and Address Organization Details Last Updated DateTime 06/12/2023 165.1 cm 24.3 kg/m2 98420.49 g [place] - [facility] 06/12/2023 11:50:59 Social History Question Answer Notes LastModified by Organizat ion Details LastModified Time Tobacco Smoking Status Former Smoker Not Available Health Note 06/08/2023 14:24:31 What Is Your Level Of Alcohol Consumption? Occasional Information not available 06/12/2023 What Is Your Level Of Caffeine Consumption? None [email or web address] Information not available 06/08/2023 How Much Tobacco Do You Chew? None [email or web address] Information not available 06/08/2023 Do You Or Have You Ever Used E-cigarettes Or Vape? Never Used Electronic Cigarettes [email or web address] Information not available 06/08/2023 When Did You Quit Smoking? 6-10yearssince lastcigarette Information not available 06/12/2023 Number Of Pregnancies 2 [email or web address] Information not available 01/19/2023 Number Of Vaginal Deliveries 2 [email or web address] Information not available 01/19/2023 Number Of Caesarean Sections 0 [email or web address] Information not available 01/19/2023 Could You Be ? No [email or web address] Information not available 01/19/2023 What Was The Date Of Your Most Recent Tobacco Screening? 06/12/2023 [email or web address] Information not available 06/08/2023 Have You Ever Been Counseled For Unhealthy Alcohol Use? No Information not available 01/23/2023 What Is Your Relationship Status? Single [email or web address] Information not available 01/19/2023 Are You Sexually Active? No [email or web address] Information not available 06/08/2023 Do You Or Have You Ever Used Smokeless Tobacco? Never Used Smokeless Tobacco [email or web address] Information not available 06/08/2023 How Much Tobacco Do You Smoke? 0.5 PPD Information not available 06/12/2023 Do You Use Any Illicit Or Recreational Drugs? No [email or web address] Information not available 06/08/2023 Has Tobacco Cessation Counseling Been Provided? No Information not available 01/23/2023 How Many Years Have You Smoked Tobacco? 50 [email or web address] Information not available 06/08/2023 Do You Or Have You Ever Used Any Other Forms Of Tobacco Or Nicotine? No Information not available 01/23/2023 How Many Days In The Past Year Have You Consumed 4 Or More Drinks? 0 [email or web address] Information no t available 06/08/2023 Sex: Female Functional Status None recorded. Mental Status None recorded. Family History Relationship Description Onset Age of this Age Resolved Age Notes Maternal Grandmother Family history of diabetes mellitus Mother Family history of cardiac disorder Paternal Grandfather Family history of cancer Medical History Condition Response High Blood Pressure Y Kidney Stones N Depression N Lung Disease N GERD/Acid Reflux Y Sexually Transmitted Infection N Cancer Y High Cholesterol N Diabetes N Bleeding Disorder N Heart Disease N Gynecological History Statement/Question Response If Post Menopausal, Age at Menopause 38 Hormone Therapy N Sexually Active? N Obstetrics History GPAL:G 0 P 0 0 0 0 Immunizations Vaccine Type Date Status Provider Name and Address Organization Details Recorded Time SARS-COV-2 (COVID-19) vaccine, UNSPECIFIED 08/20/2020 completed Not Available [facility] 06/12/2023 09:00:42 pneumococcal, unspecified formulation 05/14/2020 completed Not Available [facility] 06/12/2023 09:00:42 influenza, unspecified formulation 01/12/2022 completed Not Available [facility] 06/12/2023 09:00:42 zoster recombinant 07/12/2018 completed Venkata Meath null, [facility] 01/23/2023 14:11:39 zoster recombinant 09/13/2018 completed Venkata Meath null, [facility] 01/23/2023 14:11:39 influenza, high-dose, quadrivalent 01/13/2020 completed Venkata Meath null, [facility] 01/23/2023 14:11:39 influenza, high-dose, quadrivalent 01/14/2021 completed Venkata Meath null, [facility] 01/23/2023 14:11:39 influenza, high-dose, quadrivalent 01/20/2023 completed Venkata Meath null, [facility] 01/23/2023 14:11:39 influenza, high-dose, quadrivalent 02/06/2022 completed Venkata Meath null, [facility] 01/23/2023 14:11:39 COVID-19, mRNA, LNP-S, PF, 100 mcg/0.5mL dose or 50 mcg/0.25mL dose 07/23/2020 completed Venkata Meath null, [facility] 01/23/2023 14:11:39 COVID-19, mRNA, LNP-S, PF, 100 mcg/0.5mL dose or 50 mcg/0.25mL dose 08/20/2020 completed Venkata Meath null, [facility] 01/23/2023 14:11:39 pneumococcal polysaccharide PPV23 11/06/2016 completed Venkata Meath null, [facility] 01/23/2023 14:11:39 Tdap 10/31/2016 completed Venkata Meath null, [facility] 01/23/2023 14:11:39 Tdap 04/21/2010 completed Venkata Meath null, [facility] 01/23/2023 14:11:39 Pneumococcal conjugate PCV 13 10/08/2015 completed Venkata Meath null, [facility] 01/23/2023 14:11:39 zoster live 09/14/2019 completed Venkata Meath null, [facility] 01/23/2023 14:11:39 Influenza, high dose seasonal 01/14/2017 completed Venkata Meath null, [facility] 01/23/2023 14:11:39 Influenza, high dose seasonal 01/14/2019 completed Venkata Meath null, [facility] 01/23/2023 14:11:39 Influenza, high dose seasonal 01/24/2016 completed Venkata Meath null, [facility] 01/23/2023 14:11:39 Influenza, seasonal, injectable 01/19/2013 completed Venkata Meath null, [facility] 01/23/2023 14:11:39 Influenza, seasonal, injectable 01/21/2012 completed Venkata Meath null, [facility] 01/23/2023 14:11:39 Influenza, seasonal, injectable 01/22/2011 completed Venkata Meath null, [facility] 01/23/2023 14:11:39 Influenza, seasonal, injectable 02/06/2010 completed Venkata Meath null, [facility] 01/23/2023 14:11:39 Influenza, seasonal, injectable 03/02/2006 completed Venkata Meath null, [facility] 01/23/2023 14:11:39 Influenza, seasonal, injectable 03/05/2008 completed Venkata Meath null, [facility] 01/23/2023 14:11:39 Influenza, seasonal, injectable 03/11/2007 completed Venkata Meath null, [facility] 01/23/2023 14:11:39 Influenza, seasonal, injectable 04/26/2005 completed Venkata Meath null, [facility] 01/23/2023 14:11:39 Past Encounters Encounter ID Performer Location Encounter Start Date Encounter Closed Date Diagnosis/Indication Diagnosis SNOMED-CT Code [id number] [facility] [address] [place] [address] 01/23/2023 09:06:15 01/23/2023 14:51:20 [place] hematuria [id number] Hydronephrosis [id number] [facility] [address] [place] [address] 06/12/2023 09:00:07 06/12/2023 12:20:33 [place] hematuria 003442271 Hydronephrosis 43109301 Health Concerns Section Related Observation LastModified by Organization Detai ls LastModified Time None Recorded Concern Status LastModified by Organization Details LastModified Time None Recorded Advance Directives Directive None Recorded Payers Encounter Date Sequence Insurance Name Policy Number Policy Armenta Covered Member ID Armenta Member ID Guarantor Name 06/12/2023 1 [place] CO[place] [id number] Pippa Sarah Oscar [id number] Pippa E Oscar 01/23/2023 1 [place] CO[place] [id number] Pippa E Oscar [id number] Pippa E Oscar Notes Date Note Type Note Provider Name [...] of prior pelvic radiation. Jaylen Raphael MD [address] [place] [address],[address], [place], [address], [facility] 01/23/2023 14:24:58 06/12/2023 text/html HPI Notes: Prior to conducting our video visit, the patient was apprised of the risks, benefits and alternatives to video visits including but not limited to poor video quality, interrupted visits due to technological limitations, delays in medical evaluation and treatment due to deficiencies or failures of equipment, failure of security protocols resulting in a breach of privacy of personal medical information and a lack of access to complete medical records resulting in not fully informed decisions. It was not possible for the patient to sign the privacy regulations, HIPAA release and assignment of benefits forms. The patient was given the opportunity to ask questions about these policies and gave verbal acknowledgement and approval of these policies as well as to hold this meeting by video. Lastly, the patient agreed to allowing their medication history to be pulled from a national pharmacy database to facilitate and coordinate their care. This is a 73 year old female here for the ongoing management of right hydronephrosis and gross hematuria. She developed gross hematuria on 09/25/2022. This prompted a CT urogram on 10/13/2022 which revealed right hydronephrosis with a transition point in the right proximal ureter. She is now status post cystoscopy, right ureteroscopy, right retrograde pyelography, and right ureteral stent placement. No tumors or lesions were identified. She removed her own stent at home. She has had no further hematuria. She denies flank pain. Jaylen Raphael MD [address], [place], [address], [facility] 06/12/2023 12:03:15 OBGyn Episode No OBEpisode recorded.
--- OUTSIDE RECORDS SUMMARY | 2023-09-11 10:04 | XMS_ITS | Encounter Summary ---
Author Name Unknown Organization [facility] Address [address] [place] [address] Care Team Providers Care Rice Farmer Name Role Phone [facility] Primary Care Provider Encounter Details Date Type Department Care Team (Latest Contact Info) Description 07/07/2023 Travel Social History Tobacco Use Types Packs/Day Years [...] on file documented as of this encounter Plan of Treatment Not on file documented as of this encounter Visit Diagnoses Not on filedocumented in this encounter Care Teams Rice Farmer Relationship Specialty Start Date End Date [facility] [address] [place] [id number] PCP - General 04/07/19 documented as of this encounter
--- OUTSIDE RECORDS SUMMARY | 2023-09-11 10:04 | XMS_ITS | Clinical Summary ---
Author Name Unknown Organization [facility] Address [address] [place] [address] Care Team Providers Care Senior Center Manager Name Role Phone Clinic, [facility] Primary Care Provider Allergies Active Allergy Reactions Criticality Noted Date Comments No Known Allergies 02/10/2003 Medications Medication Sig Dispensed Refills Start Date End Date Status Multiple Vitamins-Minerals (WOMENS MULTI PO) Active Biotin 5000 MCG CAPS Take 1,000 mg by mouth Active Wheat Dextrin (BENEFIBER PO) Active losartan-hydrochloroth iazide (HYZAAR) 50-12.5 MG per tabletIndications:Edvin gn essential hypertension Take 1 tablet by mouth daily 30 tablet 12 10/08/2015 Active Calcium Carbonate-Vit D-Min (CALCIUM 1200 PO) Take 1 tablet by mouth daily Active Active Problems Problem Noted Date Diagnosed [...] Resolved Date Benign hypertension 07/28/2010 08/11/19 15 Encounters Date Type Department Care Team Description 07/07/2023 3:50 PM STAMP COLLECTOR - 07/07/2023 4:59 PM STAMP COLLECTOR Emergency [facility] Emergency Dept [address] [place] [address] Jani Jauregui MD Closed head injury, initial encounter; Facial contusion, initial encounter; Strain of neck muscle, initial encounter; Hypertensive urgency Discharge Disposition: Home or Self Care 07/07/2023 Travel from Last 3 Months Immunizations Name Administration Dates Next Due Influenza [...] Cigarettes 1 - 03/09/2018 Smokeless Tobacco: Never Tobacco Cessation:Counseling Given: [...] Comments Blood Pressure 151/75 07/07/2023 4:59 PM STAMP COLLECTOR Pulse 67 07/07/2023 4:59 PM STAMP COLLECTOR Temperature 36.7 ??C (98 ??F) 07/07/2023 3:48 PM STAMP COLLECTOR Respiratory Rate 20 07/07/2023 4:59 PM STAMP COLLECTOR Oxygen Saturation 98% 07/07/2023 4:59 PM STAMP COLLECTOR Inhaled Oxygen Concentration - - Weight 63.8 kg (140 lb 10.5 oz) 04/07/2019 3:27 PM STAMP COLLECTOR Height 165.1 cm (5' 5) 03/28/2018 1:58 PM STAMP COLLECTOR Body Mass Index 23.41 03/28/2018 1:58 PM STAMP COLLECTOR Plan of Treatment Health Maintenance Due Date Last Done Comments ANNUAL REVIEW OF HM ORDERS 1950 CT COLONOGRAPHY 1950 FLEX SIG 1950 sDNA (Cologuard) 1950 LUNG CANCER SCREENING 1998 RSV VACCINE ( & 60+) (1 - 1-dose 60+ series) 2008 FIT 05/25/2012 05/25/2011, 04/21/2010 ADVANCE CARE PLANNING 05/25/2016 05/25/2011 FALL RISK ASSESSMENT 10/07/2016 10/08/2015, 08/18/2014, 07/11/2013 MEDICARE ANNUAL WELLNESS VISIT 10/07/2016 10/08/2015, 08/18/2014, 07/11/2013, Additional history exists LIPID 08/19/2019 08/18/2014, 06/15, 07/04/2012, Additional history exists BMP 10/06/2019 04/07/2019, 09/12, 08/18/2014, Additional history exists GLUCOSE 04/07/2022 04/07/2019, 09/12, 08/18/2014, Additional history exists COVID-19 Vaccine (2022- season) 2023 08/20/2020, 07/23/2020 PHQ-2 (once per calendar year) 2023 10/08/2015 DEXA 04/26/2025 04/26/2010, 02/28/2004 DTAP/TDAP/TD IMMUNIZATION (3 - Td or Tdap) 10/31/2026 10/31/2016, 04/26/2010, 11/03/1999 COLONOSCOPY 11/30/2030 11/30/2020, 08/12, 08/16/2009, Additional history exists COLORECTAL CANCER SCREENING 11/30/2030 HEPATITIS C SCREENING Completed 10/08/2015 MAMMO SCREENING Discontinued 12/12/2017, 12/12, 07/13/2014, Additional history exists ZOSTER IMMUNIZATION Completed 09/14/2019, 09/13/2018, 07/12/2018 Pneumococcal Vaccine: 65+ Years Completed 05/14/2020, 11/06/2016, 10/08/2015 INFLUENZA VACCINE Completed 01/20/2023, , 01/12/2022, Additional history exists HPV IMMUNIZATION Aged Out No longer e [...] on patient's age to complete this topic Procedures Procedure Name Priority Date/Time Associated Diagnosis Comments CT CERVICAL SPINE W/O CONTRAST STAT 07/07/2023 4:[address] HEAD W/O CONTRAST STAT 07/07/2023 4:17 PM STAMP COLLECTOR BASIC METABOLIC PANEL STAT 04/07/2019 4:08 PM STAMP COLLECTOR MA SCREENING LEFT W/ CHRISS Routine 12/12/2017 1:33 PM CDT Visit for screening mammogram HEPATITIS C ANTIBODY Routine 10/08/2015 9:39 AM CDT Need for hepatitis C screening test COLONOSCOPY - HIM SCAN Routine 08/26/2014 LIPID REFLEX TO DIRECT LDL PANEL Routine 08/18/2014 9:55 AM CDT Routine General Medical Examination At A Health Care Facility CARDIOVASCULAR SCREENING; LDL GOAL LESS THAN 160 OCCULT BLOOD STOOL 1-3 SPEC Routine 05/25/2011 10:36 AM STAMP COLLECTOR Routine general medical examination at a health care facility DX BONE DENSITY Routine 04/26/2010 Osteopenia from Last 3 Months or Most Recently Relevant to Health Maintenance Results * CT Cervical Spine w/o Contrast (07/07/2023 4:19 PM STAMP COLLECTOR) Anatomical Region Laterality Modality Spine, SUBRAD CT NEURO, SUBR AD CT NEURO, UMP CT SPINE, RAD CT Computed Tomography 07/07/2023 4:19 PM STAMP COLLECTOR Impressions 07/07/2023 4:43 PM STAMP COLLECTOR IMPRESSION: HEAD CT: 1. ??No acute intracranial process. CERVICAL SPINE CT: 1. ??No acute fracture. Narrative 07/07/2023 4:43 PM STAMP COLLECTOR EXAM: CT HEAD W/O CONTRAST, CT CERVICAL SPINE W/O CONTRAST LOCATION: [facility] DATE: 07/07/2023 INDICATION: fall, hit left side [...] CONTRAST, CT CERVICAL SPINE W/O CONTRAST LOCATION: [facility] DATE: 07/07/2023 INDICATION: fall, hit left side [...] 1. No acute fracture. Jani Jauregui MD [facility] [place] ORDER[place]LES * Head CT w/o contrast (07/07/2023 4:17 PM STAMP COLLECTOR) Anatomical Region Laterality Modality Head, SUBRAD CT NEURO, SUBRA D CT NEURO, UMP CT NEURO, RAD CT Computed Tomography 07/07/2023 4:17 PM STAMP COLLECTOR Impressions 07/07/2023 4:43 PM STAMP COLLECTOR IMPRESSION: HEAD CT: 1. ??No acute intracranial process. CERVICAL SPINE CT: 1. ??No acute fracture. Narrative 07/07/2023 4:43 PM STAMP COLLECTOR EXAM: CT HEAD W/O CONTRAST, CT CERVICAL SPINE W/O CONTRAST LOCATION: [facility] DATE: 07/07/2023 INDICATION: fall, hit left side [...] CONTRAST, CT CERVICAL SPINE W/O CONTRAST LOCATION: [facility] DATE: 07/07/2023 INDICATION: fall, hit left side [...] CT: 1. No acute fracture. Bg Richardson DO IMG CT ORDERABLE S * Basic metabolic panel (04/07/2019 4:08 PM STAMP COLLECTOR) Sodium 139 133 - 144 mmol/L 04/07/2019 4:33 PM [facility] Potassium 3.7 3.4 - 5.3 mmol/L 04/07/2019 4:33 PM [facility] Chloride 107 94 - 109 mmol/L 04/07/2019 4:33 PM [facility] Carbon Dioxide 26 20 - 32 mmol/L 04/07/2019 4:40 PM [facility] Anion Gap 6 3 - 14 mmol/L 04/07/2019 4:40 PM [facility] Glucose 88 70 - 99 mg/dL 04/07/2019 4:40 PM [facility] Urea Nitrogen 15 7 - 30 mg/dL 04/07/2019 4:40 PM [facility] Creatinine 0.68 0.52 - 1.04 mg/dL 04/07/2019 4:40 PM [facility] GFR Estimate 88 >60 mL/min/{1. 73_m2} 04/07/2019 4:40 PM [facility] Comment: Non GFR Calc Starting 2018, serum creatinine based estimated GFR (eGFR) will be calculated using the Chronic Kidney Disease Epidemiology Collaboration (CKD-EPI) equation. GFR Estimate If Black >90 >60 mL/min/{1. 73_m2} 04/07/2019 4:40 PM [facility] Comment: GFR Calc Starting 2018, serum creatinine based estimated GFR (eGFR) will be calculated using the Chronic Kidney Disease Epidemiology Collaboration (CKD-EPI) equation. Calcium 9.2 8.5 - 10.1 mg/dL 04/07/2019 4:40 PM [facility] Blood specimen (specimen) 04/07/2019 4:08 PM STAMP COLLECTOR 04/07/2019 4:17 PM STAMP COLLECTOR Toney Barakat APRN RN PACU LAB - BLOOD O RDERABLES [facility] [address] [place] [address], [facility] [phone] [facility] [address] [place] [address], [facility] [phone] * MA Screen Left w/Chriss (12/12/2017 1:33 PM CDT) Anatomical Region Laterality Modality Breast Bilateral Mammography Impressions 12/18/2017 8:40 AM CDT IMPRESSION: BI-RADS CATEGORY: 1 - Negative. RECOMMENDED FOLLOW-UP: Annual Mammography. Recommend routine annual screening mammography. Exam results letter mailed to patient. JUAREZ SPRINGER MD Narrative 12/18/2017 8:40 AM CDT SCREENING MAMMOGRAM, LEFT, DIGITAL w/CAD AND TOMOSYNTHESIS - 12/12/2017 1:33 PM. BREAST SYMPTOMS: No current breast complaints. COMPARISON: ??01/04/17, 05/25/11. BREAST DENSITY: Heterogeneously dense. COMMENTS: No findings of suspicion for malignancy. ?? The patient has had a prior right mastectomy. Procedure Note Juarez Springer MD - 12/18/2017 SCREENING MAMMOGRAM, LEFT, DIGITAL w/CAD AND TOMOSYNTHESIS - 12/12/2017 1:33 PM. BREAST SYMPTOMS: No current breast complaints. COMPARISON: 01/04/17, 05/25/11. BREAST DENSITY: Heterogeneously dense. COMMENTS: No findings of suspicion for malignancy. The patient has had a prior right mastectomy. IMPRESSION: BI-RADS CATEGORY: 1 - Negative. RECOMMENDED FOLLOW-UP: Annual Mammography. Recommend routine annual screening mammography. Exam results letter mailed to patient. JUAREZ SPRINGER MD Ashwini Pierre MD IMG MAMMOGRAPHY ORDERABLES * Hepatitis C antibody (10/08/2015 9:39 AM CDT) Pathologist [facility] Hepatitis C Antibody Nonreactive Assay performance characteristics have not been established for newborns, infants, and children NR [facility] Blood specimen (specimen) 10/08/2015 9:39 AM CDT 10/08/2015 9:40 AM CDT Blanche Gilmore MD LAB - BLOO D ORDERABLES [facility] [address] [place] [address] * Colonoscopy - HIM Scan (08/26/2014) Bety Masters MD PROCEDURES * LIPID REFLEX TO DIRECT LDL PANEL (08/18/2014 9:55 AM CDT) Pathologist [facility] Cholesterol 155 <200 mg/dL [facility] Comment: LDL Cholesterol is the primary guide to therapy. The NCEP recommends further evaluation of: patients with cholesterol greater than 200 mg/dL if additional risk factors are present, cholesterol greater than 240 mg/dL, triglycerides greater than 150 mg/dL, or HDL less than 40 mg/dL. Triglycerides 68 0 - 150 mg/dL [facility] Comment:Fasting specimen HDL Cholesterol 66 >50 mg/dL [facility] LDL Cholesterol Calculated 75 0 - 129 mg/dL [facility] Comment: LDL Cholesterol is the primary guide to therapy: LDL-cholesterol goal in high risk patients is <100 mg/dL and in very high risk patients is <70 mg/dL. VLDL-Cholesterol 14 0 - 30 mg/dL [facility] Cholesterol/HDL Ratio 2.3 0.0 - 5.0 [facility] Blood specimen (specimen) 08/18/2014 9:55 AM CDT 08/18/2014 9:56 AM CDT Bety Masters MD LAB - BLOOD O RDERABLES [facility] [address] [place] [address] * Occult blood stool 1-3 spec (05/25/2011 10:36 AM STAMP COLLECTOR) Occult Blood Slide 1 Negative NEG [facility] Slide 1 Date 05/25/2011 [facility] Stool specimen (specimen) 05/25/2011 10:36 AM STAMP COLLECTOR 05/25/2011 10:56 AM STAMP COLLECTOR Connor Garcia MD LAB - STOOLS ORDERAB LES [facility] * Dexa hip/pelvis/spine* (04/26/2010) Anatomical Region Laterality Modality Dexa Other Impressions 04/26/2010 BONE DENSITOMETRY [facility] April 26, 2010 PATIENT: ??Pippa Moore CHART: [id number] : ??1950 AGE: ??59 year old SEX: ??female REFERRING PHYSICIAN: ??Connor Garcia M.D, ?? PROCEDURE: ??Bone density scanning was performed using DEXA technology performed on a [employer] Scanner. ??Reporting is completed in the form of a T-score. ??The T-score represents the standard deviation from peak bone mass based on a young healthy adult. Retail Salesman performing scan: ??Sweetie Francis REFERENCE T-SCORES: ? Normal ? Greater than -1.0 ? Osteopenia ?-1.0 to -2.5 ? Osteoporosis ?? Less than -2.5 ? INDICATIONS: ??Post-menopausal, Follow-up osteopenia, Tobacco abuse CURRENT TREATMENT: ??[facility] FINDINGS: ?Lumbar Spine L1-L3: ??T-score -0.7 ?Left Femoral Neck: ??T-score -0.8 ?Right Femoral Neck: ??T-score -1.0 ? Comparison is performed to previous DEXA performed on a [employer] Scanner on 2003 and [facility] scanner on 2000. Electronically filed by Sweetie Francis 04/26/2010 ??4:19 PM Comparisons from different scanners that have not been cross calibrated, are not necessarily valid. Such a comparison has been performed here; one should interpret with caution. When compared with a scan dated 2000 and ??allowing for standardization calculations, there is suggestion of a possible trend towards improvement of the lumbar spine, and no significant change of the total hip. Comparisons are not necessarily valid when precision within the machine has not been determined. Such a comparison has been performed here; one should interpret with caution. In the interim, allowing for standardization calculations, there is suggestion of no significant change of the lumbar spine, and no significant change of the total hip when compared with a scan in 2004. IMPRESSION: Normal bone mineral density study Degenerative changes of the spine Recommendations include ensuring adequate Calcium (1200 mg per day) and Vitamin D (800-1000 IU/d). Follow up can be considered within five years. For patients eligible for Medicare, routine testing is allowed once every two years. The testing frequency can be increased to one year for patients who have rapidly progressing disease, those who are receiving or discontinuing medical therapy to restore bone mass, or have additional risk factors. Akila Hinkle M.D. Electronically signed Connor Garcia MD IMG DEXA ORDERABLES from Last 3 Months or Most Recently Relevant to Health Maintenance Care Teams Senior Center Manager Relationship Specialty Start Date End Date Clinic, [facility] [address] [place] [id number] PCP - General 04/07/19
--- OUTSIDE RECORDS SUMMARY | 2023-09-11 10:04 | XMS_ITS | Continuity of Care Document ---
Author Name Unknown Address [address] [place] [address] Phone [phone] Organization [facility] Address [address] [address] [place] [address] Care Team Providers Care [employer] Name Role Phone PILAR STAUFFER Primary Care Provider PILAR STAUFFER Referring Provider [phone] Assessment Encounter Date Assessment Date Assessment LastModified by Organization Details LastModified Time 06/12/2023 06/12/2023 73 year old female with a history of gross hematuria and right hydronephrosi sKatharina [email or web address] Not available 06/12/2023 11:33:41 Plan of Treatment Reminders Order Date Submit Date Provider Last Modified By Organization Details Last Modified Time Details Appointments None recorded. Lab None recorded. Referral None recorded. Procedures None recorded. Surgeries None recorded. Imaging [place], kidney scan - LASIX RENOGRAM - please administer Lasix per your standard protocol. 2023 024 [email or web address] [facility], [address] [place], [address], 12:01:17 Medication Orders None recorded. Patient TargetsNo targets recorded. Patient Instructions Encounter Date Encounter Id Patient Instructions Last Modified By Organization Details Last Modified Time 06/12/2023 [id number] Right hydronephrosis: The area of interest showed [...] visit: 15 minutes Not available 06/12/2023 12:02:50 Reason for Referral None Reported. Problems Name Status Onset Date Resolution Date Notes Provider Name and Address Organization Details Recorded Time [place] hematuria Active 024 Venkata Meath null, [facility] 06/05/2023 15:09:01 Hydronephrosis Active 024 Venkata Meath null, [facility] 06/05/2023 15:09:06 Hypertensive disorder Active 024 Venkata Meath null, [facility] 06/05/2023 15:10:02 Aneurysm Active 024 Venkata Meath null, [facility] 06/05/2023 15:10:08 Cataract Active 024 Venkata Meath null, [facility] 06/05/2023 15:10:20 Gastroesophageal reflux disease Active 024 Venkata Meath null, [facility] 06/05/2023 15:10:24 Adenomatous polyp of colon Active 024 Venkata Meath null, [facility] 06/05/2023 15:10:33 History of malignant neoplasm of breast Active 024 Venkata Meath null, [facility] 06/05/2023 15:10:44 Problem Notes None recorded. Procedures Surgical History Date Name Laterality Status Provider Name and Address Organization Details Recorded Time 06/12/19 24 COMPLEX VISIT completed Jaylen Raphael MD [address] [place] [address],[address], [place], [address], [facility] 06/12/2023 12:03:05 12/01/19 21 Colonoscopy completed Venkata Meath null, [facility] 06/05/2023 15:11:13 04/17/20 20 Partial mastectomy completed Venkata Meath null, [facility] 01/23/2023 14:37:08 05/14/18 99 Partial mastectomy completed Venkata Meath null, [facility] 01/23/2023 14:37:32 Laparoscopy remove adnexa completed Not Available Health Note 01/19/2023 16:15:15 Imaging Results None recorded. Procedure Notes None recorded. Medical Equipment None [...] No t Available Vitals Date Recorded Body height Body mass index (BMI) Body weight Provider Name and Address Organization Details Last Updated DateTime 06/12/2023 165.1 cm 24.3 kg/m2 43551.49 g Venkata [place], [place] - [facility] 06/12/2023 11:50:59 Social History Question Answer [...] (COVID-19) vaccine, UNSPECIFIED 08/20/2020 completed Not Available [facility] 06/12/2023 09:00:42 pneumococcal, unspecified formulation 05/14/2020 completed Not Available [facility] 06/12/2023 09:00:42 influenza, unspecified formulation 01/12/2022 completed Not Available [facility] 06/12/2023 09:00:42 zoster recombinant 07/12/2018 completed Venkata Meath null, [facility] 01/23/2023 14:11:39 zoster recombinant 09/13/2018 completed Venkata Meath null, [facility] 01/23/2023 14:11:39 influenza, high-dose, quadrivalent 01/13/2020 completed Venkata Meath null, [facility] 01/23/2023 14:11:39 influenza, high-dose, quadrivalent 01/14/2021 completed Venkata Meath null, [facility] 01/23/2023 14:11:39 influenza, high-dose, quadrivalent 01/20/2023 completed Venkata Meath null, [facility] 01/23/2023 14:11:39 influenza, high-dose, quadrivalent 02/06/2022 completed Venkata Meath null, [facility] 01/23/2023 14:11:39 COVID-19, mRNA, LNP-S, PF, 100 mcg/0.5mL dose or 50 mcg/0.25mL dose 07/23/2020 completed Venkata Meath null, [facility] 01/23/2023 14:11:39 COVID-19, mRNA, LNP-S, PF, 100 mcg/0.5mL dose or 50 mcg/0.25mL dose 08/20/2020 completed Venkata Meath null, [facility] 01/23/2023 14:11:39 pneumococcal polysaccharide PPV23 11/06/2016 completed Venkata Meath null, [facility] 01/23/2023 14:11:39 Tdap 10/31/2016 completed Venkata Meath null, [facility] 01/23/2023 14:11:39 Tdap 04/21/2010 completed Venkata Meath null, [facility] 01/23/2023 14:11:39 Pneumococcal conjugate PCV 13 10/08/2015 completed Venkata Meath null, [facility] 01/23/2023 14:11:39 zoster live 09/14/2019 completed Venkata Meath null, [facility] 01/23/2023 14:11:39 Influenza, high dose seasonal 01/14/2017 completed Venkata Meath null, [facility] 01/23/2023 14:11:39 Influenza, high dose seasonal 01/14/2019 completed Venkata Meath null, [facility] 01/23/2023 14:11:39 Influenza, high dose seasonal 01/24/2016 completed Venkata Meath null, [facility] 01/23/2023 14:11:39 Influenza, seasonal, injectable 01/19/2013 completed Venkata Meath null, [facility] 01/23/2023 14:11:39 Influenza, seasonal, injectable 01/21/2012 completed Venkata Meath null, [facility] 01/23/2023 14:11:39 Influenza, seasonal, injectable 01/22/2011 completed Venkata Meath null, [facility] 01/23/2023 14:11:39 Influenza, seasonal, injectable 02/06/2010 completed Venkata Meath null, [facility] 01/23/2023 14:11:39 Influenza, seasonal, injectable 03/02/2006 completed Venkata Meath null, [facility] 01/23/2023 14:11:39 Influenza, seasonal, injectable 03/05/2008 completed Venkata Meath null, [facility] 01/23/2023 14:11:39 Influenza, seasonal, injectable 03/11/2007 completed Venkata Meath null, [facility] 01/23/2023 14:11:39 Influenza, seasonal, injectable 04/26/2005 completed Venkata Meath null, [facility] 01/23/2023 14:11:39 Past Encounters Encounter ID Performer Location Encounter Start Date Encounter Closed Date Diagnosis/Indication Diagnosis SNOMED-CT Code [id number] Jaylen Raphael MD [facility] [address] [place] [address] 06/12/2023 09:00:07 06/12/2023 12:20:33 [place] hematuria [id number] Hydronephrosis [id number] Health Concerns Section Related Observation LastModified by Organization Detai ls LastModified Time None Recorded Concern Status LastModified by Organization Details LastModified Time None Recorded Payers Encounter Date Sequence Insurance Name Policy Number Policy Armenta Covered Member ID Armenta Member ID Guarantor Name 06/12/2023 1 [place] MEDIC[place] COST [id number] Pippa Moore [id number] Pippa Moore Notes Date Note Type Note Provider Name and Address Organization Details Recorded Time 06/12/2023 text/html HPI Notes: Prior to conducting [...] She denies flank pain. Jaylen Raphael MD [address] [place] [address],[address], [place], [address], [facility] 06/12/2023 12:03:15 OBGyn Episode No OBEpisode recorded.
--- OUTSIDE RECORDS SUMMARY | 2023-09-11 10:04 | XMS_ITS | Referral Summary ---
Author Name Unknown Organization [place] Address [address] [place] [address] Care Team Providers Care Disease Education Specialist Name Role Phone [facility], [facility] Primary Care Provider Encounters Date Type Department Care Team Description 07/07/2023 Travel 07/07/2023 3:50 PM BOX [employer]KER [employer] - 07/07/2023 4:59 PM [facility] Emergency [facility] Emergency Dept [address] [place] [id number] Jani Jauregui MD Closed head injury, initial encounter; Facial contusion, initial encounter; Strain of neck muscle, initial encounter; Hypertensive urgency Discharge Disposition: Home or Self Care from Last 3 Months Allergies Active Allergy Reactions Criticality Noted Date [...] Comments Blood Pressure 151/75 07/07/2023 4:59 PM [employer]OX MAKER [employer] Pulse 67 07/07/2023 4:59 PM [employer]OX MAK[employer] Temperature 36.7 ??C (98 ??F) 07/07/2023 3:48 PM [employer] Respiratory Rate 20 07/07/2023 4:59 PM [employer] Oxygen Saturation 98% 07/07/2023 4:59 PM BOX [employer]KER [employer] Inhaled Oxygen Concentration - - Weight 63.8 kg (140 lb 10.5 oz) 04/07/2019 3:27 PM BOX MAKER WOOD Height 165.1 cm (5' 5) 03/28/2018 1:58 PM [employer] Body Mass Index 23.41 03/28/2018 1:58 PM [employer]OX [employer] Plan of Treatment Not on file Procedures Procedure Name Priority Date/Time Associated Diagnosis Comments CT CERVICAL SPINE W/O CONTRAST STAT 07/07/2023 4:[address] HEAD W/O CONTRAST STAT 07/07/2023 4:17 PM BOX MAKER WOOD BASIC METABOLIC PANEL STAT 04/07/2019 4:08 PM BOX MAKER WOOD MA SCREENING LEFT W/ CHRISS Routine 12/12/2017 [...] STOOL 1-3 SPEC Routine 05/25/2011 10:36 AM BOX MAKER WOOD Routine general medical examination at a health care facility DX BONE DENSITY Routine 04/26/2010 Osteopenia from Last 3 Months or Most Recently Relevant to Health Maintenance Results * CT Cervical Spine w/o Contrast (07/07/2023 4:19 PM BOX MAKER WOOD) Anatomical Region Laterality Modality Spine, SUBRAD CT NEURO, SUBR AD CT NEURO, UMP CT SPINE, RAD CT Computed Tomography 07/07/2023 4:19 PM BOX MAKER [employer] Impressions 07/07/2023 4:43 PM BOX MAKER WOOD IMPRESSION: HEAD CT: 1. ??No acute intracranial process. CERVICAL SPINE CT: 1. ??No acute fracture. Narrative 07/07/2023 4:43 PM BOX MAKER WOOD EXAM: CT HEAD W/O CONTRAST, CT CERVICAL SPINE W/O CONTRAST LOCATION: [facility] DATE: 07/07/2023 INDICATION: fall, hit left [...] CONTRAST, CT CERVICAL SPINE W/O CONTRAST LOCATION: [facility] DATE: 07/07/2023 INDICATION: fall, hit left [...] 1. No acute fracture. Jani Jauregui MD IM CT ORDERABLES * Head CT w/o contrast (07/07/2023 4:17 PM BOX MAKER WO[employer]) Anatomical Region Laterality Modality Head, SUBRAD CT NEURO, SUBRA D CT NEURO, UMP CT NEURO, RAD CT Computed Tomography 07/07/2023 4:17 PM [employer]KER [employer] Impressions 07/07/2023 4:43 PM BOX MAKER WOOD IMPRESSION: HEAD CT: 1. ??No acute intracranial process. CERVICAL SPINE CT: 1. ??No acute fracture. Narrative 07/07/2023 4:43 PM BOX MAKER WOOD EXAM: CT HEAD W/O CONTRAST, CT CERVICAL SPINE W/O CONTRAST LOCATION: [facility] DATE: 07/07/2023 INDICATION: fall, hit left [...] CONTRAST, CT CERVICAL SPINE W/O CONTRAST LOCATION: [facility] DATE: 07/07/2023 INDICATION: fall, hit left [...] * Basic metabolic panel (04/07/2019 4:08 PM BOX MAKER WO[employer]) Sodium 139 133 - 144 mmol/L 04/07/2019 4:33 PM [facility] Potassium 3.7 3.4 - 5.3 mmol/L 04/07/2019 4:33 PM [facility] Chloride 107 94 - 109 mmol/L 04/07/2019 4:33 PM [facility] Carbon Dioxide 26 20 - 32 mmol/L 04/07/2019 4:40 PM [facility] Anion Gap 6 3 - 14 mmol/L 04/07/2019 4:40 PM [facility] Glucose 88 70 - 99 mg/dL 04/07/2019 4:40 PM [facility] Urea Nitrogen 15 7 - 30 mg/dL 04/07/2019 4:40 PM [facility] Creatinine 0.68 0.52 - 1.04 mg/dL 04/07/2019 4:40 PM [facility] GFR Estimate 88 >60 mL/min/{1. 73_m2} 04/07/2019 4:40 PM [facility] Comment: Non GFR Calc Starting 2018, serum creatinine based estimated GFR (eGFR) will be calculated using the Chronic Kidney Disease Epidemiology Collaboration (CKD-EPI) equation. GFR Estimate If Black >90 >60 mL/min/{1. 73_m2} 04/07/2019 4:40 PM BOX MAKER [employer]OD [facility] Comment: GFR Calc Starting 2018, serum creatinine based estimated GFR (eGFR) will be calculated using the Chronic Kidney Disease Epidemiology Collaboration (CKD-EPI) equation. Calcium 9.2 8.5 - 10.1 mg/dL 04/07/2019 4:40 PM BOX MAKER WOOD [facility] Blood specimen (specimen) 04/07/2019 4:08 PM BOX MAKER [employer]OD 04/07/2019 4:17 PM [employer] Toney Barakat APRN TROUBLE CLERK LAB - BLOOD O RDERABLES [facility] [address] [place] [address], [facility] [phone] [facility] [address] [place] [address], [facility] [phone] * MA Screen Left w/Chriss (12/12/2017 1:33 [...] Hepatitis C antibody (10/08/2015 9:39 AM CDT) Hepatitis C Antibody Nonreactive Assay performance characteristics have not been established for newborns, infants, and children NR [facility] Blood specimen (specimen) 10/08/2015 9:39 AM CDT 10/08/2015 9:40 AM CDT Blanche Gilmore MD LAB - BLOO D ORDERABLES Performing Organization Address City/State/[facility] Co de Phone Number [facility] [address] [place] [address] * Colonoscopy - HIM Scan (08/26/2014) Bety Masters MD PROCEDURES * LIPID REFLEX TO DIRECT LDL PANEL (08/18/2014 9:55 AM CDT) Cholesterol 155 <200 mg/dL [facility] Comment: LDL Cholesterol is the primary guide to therapy. The NCEP recommends further evaluation of: patients with cholesterol greater than 200 mg/dL if additional risk factors are present, cholesterol greater than 240 mg/dL, triglycerides greater than 150 mg/dL, or HDL less than 40 mg/dL. Triglycerides 68 0 - 150 mg/dL [facility] Comment:Fasting specimen HDL Cholesterol 66 >50 mg/dL [facility] LDL Cholesterol Calculated 75 0 - 129 mg/dL [facility] Comment: LDL Cholesterol is the primary guide to therapy: LDL-cholesterol goal in high risk patients is <100 mg/dL and in very high risk patients is <70 mg/dL. VLDL-Cholesterol 14 0 - 30 mg/dL [facility] Cholesterol/HDL Ratio 2.3 0.0 - 5.0 [facility] Blood specimen (specimen) 08/18/2014 9:55 AM CDT 08/18/2014 9:56 AM CDT Bety Masters MD LAB - BLOOD O RDERABLES Performing Organization Address [facility]/ZIP Co de Phone Number [facility] [address] [place] [address] * Occult blood stool 1-3 spec (05/25/2011 10:36 AM BOX MAKER WOOD) Occult Blood Slide 1 Negative NEG [facility] Slide 1 Date 05/25/2011 [facility] Stool specimen (specimen) 05/25/2011 10:36 AM BOX MAKER WOOD 05/25/2011 10:56 AM B[employer] Connor Garcia MD LAB - STOOLS ORDERAB LES Performing Organization Address [facility] Co de Phone Number [facility] * Dexa hip/pelvis/spine* (04/26/2010) Anatomical Region Laterality Modality Dexa Other Impressions 04/26/[address] [facility] April 26, 2010 PATIENT: ??Pippa Moore CHART: [id number] : ??[id number] AGE: ??59 year old SEX: ??female REFERRING PHYSICIAN: ??Connor Garcia M.D, ?? PROCEDURE: ??Bone density scanning was performed using DEXA technology performed on a [employer] Scanner. ??Reporting is completed in the form of a T-score. ??The T-score represents the standard deviation from peak bone mass based on a young healthy adult. Director Of Primary Care performing scan: ??Sweetie Francis REFERENCE T-SCORES: ? Normal ? Greater than -1.0 ? Osteopenia ?-1.0 to -2.5 ? Osteoporosis ?? Less than -2.5 ? INDICATIONS: ??Post-menopausal, Follow-up osteopenia, Tobacco abuse CURRENT TREATMENT: ??[facility] FINDINGS: ?Lumbar Spine L1-L3: ??T-score -0.7 ?Left Femoral Neck: ??T-score -0.8 ?Right Femoral Neck: ??T-score -1.0 ? Comparison is performed to previous DEXA performed on a [employer] Scanner on 2003 and [facility] Method CRM scanner on 2000. Electronically filed by Sweetie [...] hip when compared with a scan in 2003. IMPRESSION: Normal bone mineral density study Degenerative [...] Recently Relevant to Health Maintenance Care Teams Disease Education Specialist Relationship Specialty Start Date End Date Clinic, [facility] [address] [facility] [place] [address] PCP - General 04/07/19
--- NOTE | 2023-09-11 10:15 | US_ITS ---
Patient: MASOUD JAIN Facility:?[facility] Patient ID:?[id number] Site Patient ID:?[id number] Site :?[id number] Study:?US-Breast Right DR ALVARADO TO READ-09/11/2023 10:59:30 AM Ordering Physician:JEREMIAH PORTER Final Report: RIGHT BREAST ULTRASOUND CLINICAL HISTORY: RIGHT chest wall tenderness. COMPARISON: 04/27/2020. TECHNIQUE: Real-time ultrasound imaging of RIGHT breast with imaging documentation. Scanning was performed by both the technologist and the radiologist. FINDINGS: Post procedural changes of BILATERAL mastectomy noted. Scar tissue is present on the RIGHT corresponding to areas of pain. Incidental benign subcutaneous lymph node is present measuring 6 millimeters. No suspicious findings. IMPRESSION: No suspicious findings on clinical exam or ultrasound. RECOMMENDATIONS: Clinical follow-up. Results and recommendations were discussed with the patient at the time of the exam. BI-RADS Category 2: Benign A lay language report of this examination will be provided to the patient. Dictated by Christiano Alvarado MD @ 09/11/2023 12:39:24 PM [email or web address]/Dictated by: Christiano Alvarado MD @ 09/11/2023 12:39:00 PM Signed by:?Christiano Alvarado MD @09/11/2023 1:04:47 PM (Electronic Signature)
== END 2023-09-11 09:59 | disposition home or self-care (01) ==
LOC: US 09:59
PROVIDERS: PCP Emergency Medicine; Visit Provider Physician Assistant
DX: R07.89 Other chest pain (principal); C50.919 Malignant neoplasm of unspecified site of unspecified female breast
CPT/HCPCS: 76604

== ENCOUNTER 2023-10-24 11:38 | Outpatient (CLI) | payer MEDICARE, SELFPAY | END 2023-10-24 11:39 | disposition home or self-care (01) | LOC: LKVREF 11:39 | PROVIDERS: PCP Emergency Medicine; Visit Provider Emergency Medicine | DX: I10 Essential (primary) hypertension (principal); E87.1 Hypo-osmolality and hyponatremia | CPT/HCPCS: 80048 ==

== ENCOUNTER 2023-11-11 12:45 | Outpatient (CLI) | payer MEDICARE, SELFPAY ==
--- OUTSIDE RECORDS SUMMARY | 2023-11-11 12:48 | XMS_ITS | Continuity of Care Document ---
Author Organization [facility] Address [address] [address] [place] [address] Phone Care Team Providers Care Cigarette Stamper Name Role Phone Nicanor Hinds MD Unavailable [...] Diagnoses Date Provider Providers Copied on Encounter [facility], [address] [address], [place], [place], [id number], [place] tel:[phone] [facility] No Information 1 Liezt Vick. [address], [id number], [place]. tel:[phone] [facility], [address] [address], [place], [place], [id number], tel:[phone] [facility] No Information 0 Lizet Vick. [address] [facility], [address], [id number], [place]. tel:[phone] [facility], [address] [address], [facility] [place], [id number], [place] tel:[phone] [facility] Personal hx of colon polypColon polypDiverticu losis of colonHemorrhoi dsDiverticulos is Of ColonPersonal History Colon PolypsBenign Neoplasm ColonBenign neoplasm of colon, unspecifiedUns pecified hemorrhoidsDiv erticulosis of large intestine without perforation or abscess without bleedingPerson al history of colonic polyps Apr-1 5-201 5 No Information Referring Provider: [place], [id number] [employer] [place], [address]. tel:[phone] [facility], [address] [address], [facility] [place], [id number], [place] tel:[phone] [facility] Polyp-intes/re ct/stom-unc BehColon Cancer ScreeningFamil y Hx/Colonic PolypsRectal Polyp/BenignBe nign Neoplasm Lg Bowel Apr-0 5-201 0 Orville Mcbride. [address] [address], [place], [place], [id number], [place]. tel:[phone] Referring Provider: [place] R, [address] [employer] [employer], [place], [address]. tel:[phone] [facility], [address] [address], [place], [place], [id number], [place] tel:[phone] [facility] No Information Mar-0 7-200 5 No Information Referring Provider: [place] R, [address] [employer] [place], [address]. tel:[phone] Family History Family Member Type Diagnosis Age [...]
--- OUTSIDE RECORDS SUMMARY | 2023-11-11 12:48 | XMS_ITS | Referral Summary ---
Author Organization [place] Address [address] [place] [address] Care Team Providers Care Pediatric Neurologist Name Role Phone Clinic, [facility] Primary Care Provider Allergies Active Allergy Reactions [...] background? yes Vitamin D deficiency disease 07/04/2012 CARDIOVASCULAR SCREENING; LDL GOAL LESS THAN 160 03/13/2010 Resolved Problems Problem Noted Date Diagnosed Date Resolved Date Advanced directives, counseling/discussion 05/25/2011 10/29/2023 Overview: Advance Directive Problem List Overview: Name Relationship Phone Primary Health Care Agent Alternative Health Care Agent Patient states has Advance Directive and will bring in a copy to clinic. 05/25/2011 Benign hypertension 07/28/2010 08/11/19 15 Immunizations Name [...] Comments Blood Pressure 151/75 07/07/2023 4:59 PM RACK PRODUCTION WORKER Pulse 67 07/07/2023 4:59 PM [employer]ACK PRODUCTION WORKER Temperature 36.7 ??C (98 ??F) 07/07/2023 3:48 PM [employer] WORK[employer] Respiratory Rate 20 07/07/2023 4:59 PM [employer]ODUCTION WORKER Oxygen Saturation 98% 07/07/2023 4:59 PM [employer] WORK[employer] Inhaled Oxygen Concentration - - Weight 63.8 kg (140 lb 10.5 oz) 04/07/2019 3:27 PM [employer] WORK[employer] Height 165.1 cm (5' 5) 03/28/2018 1:58 PM [employer] WORK[employer] Body Mass Index 23.41 03/28/2018 1:58 PM RACK PRODUCTION WORKER Plan of Treatment Not on file Procedures Procedure Name Priority Date/Time Associated Diagnosis Comments BASIC METABOLIC PANEL STAT 04/07/2019 4:08 PM RACK PRODUCTION WORKER MA SCREENING LEFT W/ CHRISS Routine 12/12/2017 [...] STOOL 1-3 SPEC Routine 05/25/2011 10:36 AM RACK PRODUCTION WORKER Routine general medical examination at a health care facility DX BONE DENSITY Routine 04/26/2010 Osteopenia from Last 3 Months or Most Recently Relevant to Health Maintenance Results * Basic metabolic panel (04/07/2019 4:08 PM RACK PRODUCTION WORKER) Sodium 139 133 - 144 mmol/L 04/07/2019 4:33 PM [facility] Potassium 3.7 3.4 - 5.3 mmol/L 04/07/2019 4:33 PM [facility] Chloride 107 94 - 109 mmol/L 04/07/2019 4:33 PM [facility] Carbon Dioxide 26 20 - 32 mmol/L 04/07/2019 4:40 PM [facility] Anion Gap 6 3 - 14 mmol/L 04/07/2019 4:40 PM [facility] Glucose 88 70 - 99 mg/dL 04/07/2019 4:40 PM [facility] Urea Nitrogen 15 7 - 30 mg/dL 04/07/2019 4:40 PM [facility] Creatinine 0.68 0.52 - 1.04 mg/dL 04/07/2019 4:40 PM [facility] GFR Estimate 88 >60 mL/min/{1. 73_m2} 04/07/2019 4:40 PM [facility] Comment: Non GFR Calc Starting 2018, serum creatinine based estimated GFR (eGFR) will be calculated using the Chronic Kidney Disease Epidemiology Collaboration (CKD-EPI) equation. GFR Estimate If Black >90 >60 mL/min/{1. 73_m2} 04/07/2019 4:40 PM [facility] Comment: GFR Calc Starting 2018, serum creatinine based estimated GFR (eGFR) will be calculated using the Chronic Kidney Disease Epidemiology Collaboration (CKD-EPI) equation. Calcium 9.2 8.5 - 10.1 mg/dL 04/07/2019 4:40 PM RACK PRODUCTION WORKER [facility] Blood specimen (specimen) 04/07/2019 4:08 PM RACK PRODUCTION WORKER 04/07/2019 4:17 PM RACK PRODUCTION WORKER Toney Barakat APRN [employer] SOCIAL WORKER LAB - BLOOD O RDERABLES [facility] [address] [place] [address], [facility] [phone] [facility] [address] [place] [address], [facility] [phone] * MA Screen Left w/Chriss (12/12/2017 1:33 [...] C antibody (10/08/2015 9:39 AM CDT) Pathologist [facility] Hepatitis C Antibody Nonreactive Assay performance characteristics have not been established for newborns, infants, and children NR [facility] Blood specimen (specimen) 10/08/2015 9:39 AM CDT 10/08/2015 9:40 AM CDT Blanche Gilmore MD LAB - BLOO D ORDERABLES [facility] [address] [place] [address] * Colonoscopy - HIM Scan (08/26/2014) Bety Masters MD PROCEDURES * LIPID REFLEX TO DIRECT LDL PANEL (08/18/2014 9:55 AM CDT) Pathologist [facility] Cholesterol 155 <200 mg/dL [facility] Comment: LDL Cholesterol is the primary guide to therapy. The NCEP recommends further evaluation of: patients with cholesterol greater than 200 mg/dL if additional risk factors are present, cholesterol greater than 240 mg/dL, triglycerides greater than 150 mg/dL, or HDL less than 40 mg/dL. Triglycerides 68 0 - 150 mg/dL [facility] Comment:Fasting specimen HDL Cholesterol 66 >50 mg/dL [facility] LDL Cholesterol Calculated 75 0 - 129 mg/dL [facility] Comment: LDL Cholesterol is the primary guide to therapy: LDL-cholesterol goal in high risk patients is <100 mg/dL and in very high risk patients is <70 mg/dL. VLDL-Cholesterol 14 0 - 30 mg/dL [facility] Cholesterol/HDL Ratio 2.3 0.0 - 5.0 [facility] Blood specimen (specimen) 08/18/2014 9:55 AM CDT 08/18/2014 9:56 AM CDT Bety Masters MD LAB - BLOOD O RDERABLES Performing Organization Address City/[facility]/ZIP Co de Phone Number [facility] [address] [place] [address] * Occult blood stool 1-3 spec (05/25/2011 10:36 AM RACK PRODUCTION WORKER) Occult Blood Slide 1 Negative NEG [facility] Slide 1 Date 05/25/2011 [facility] Stool specimen (specimen) 05/25/2011 10:36 AM RACK PRODUCTION WORKER 05/25/2011 10:56 AM RACK PRODUCTION WORKER Connor Garcia MD LAB - STOOLS ORDERAB LES Performing Organization Address [facility]/ZIP Co de Phone Number [facility] * Dexa hip/pelvis/spine* (04/26/2010) Anatomical Region Laterality Modality Dexa Other Impressions 04/26/2010 BONE DENSITOMETRY [facility] April 26, 2010 PATIENT: ??Pippa Moore CHART: [id number] : ??1950 AGE: ??59 year old SEX: ??female REFERRING PHYSICIAN: ??Connor Garcia M.D, ?? PROCEDURE: ??Bone density scanning was performed using DEXA technology performed on a [employer] Scanner. ??Reporting is completed in the form of a T-score. ??The T-score represents the standard deviation from peak bone mass based on a young healthy adult. Video Rental Clerk performing scan: ??Sweetie Francis REFERENCE T-SCORES: ? Normal ? Greater than -1.0 ? Osteopenia ?-1.0 to -2.5 ? Osteoporosis ?? Less than -2.5 ? INDICATIONS: ??Post-menopausal, Follow-up osteopenia, Tobacco abuse CURRENT TREATMENT: ??[facility] FINDINGS: ?Lumbar Spine L1-L3: ??T-score -0.7 ?Left Femoral Neck: ??T-score -0.8 ?Right Femoral Neck: ??T-score -1.0 ? Comparison is performed to previous DEXA performed on a [employer] Scanner on 2003 and K[employer] scanner on 2000. Electronically filed by Sweetie [...] Recently Relevant to Health Maintenance Care Teams Pediatric Neurologist Relationship Specialty Start Date End Date Clinic, [facility] [address] [place] [id number] PCP - General 04/07/19
--- OUTSIDE RECORDS SUMMARY | 2023-11-11 12:48 | XMS_ITS | Clinical Summary ---
Author Organization [facility] Address [place], [place] [address] Care Team Providers Care Director School Of Nursing Name Role Phone Nazia Morrison MD Primary Care Provider [phone]- [phone] Allergies Active Allergy Reactions Criticality Noted Date Comments Unlisted Allergen (Include Detail In Comments) Rash,Edema 03/29/2023 Calcium Channel blockers, swelling in your feet and ankles Medications Medication Sig Dispensed Refills Start Date End Date Status multivit,iron,salt miner als/lutein (CENTRUM SILVER ULTRA WOMEN'S ORAL) [...] Encounters Date Type Department Care Team Description 09/21/2023 10:16 AM CDT - 09/21/2023 11:59 PM CDT Hospital Encounter [facility] [address] [place] [address] Jaylen Raphael MD Unspecified hydronephrosis 09/21/2023 Travel from Last 3 Months Immunizations Name [...] Sex Assigned at Female 07/20/2020 10:05 AM RADIOLOGICAL ENGINEER Gender Identity Female 07/20/2020 10:06 AM RADIOLOGICAL ENGINEER Sexual Orientation Choose not to disclose 2020 10:48 AM RADIOLOGICAL ENGINEER Obstetrics History Last Filed Vital Signs Vital Sign Reading Time Taken Comments Blood Pressure 130/66 03/30/2023 12:04 PM RADIOLOGICAL ENGINEER Pulse 66 03/30/2023 12:04 PM RADIOLOGICAL ENGINEER Temperature 36.4 ??C (97.6 ??F) 03/30/2023 12:[address] Respiratory Rate 16 03/30/2023 12:04 PM RADIOLOGICAL ENGINEER Oxygen Saturation 99% 03/30/2023 12:04 PM RADIOLOGICAL ENGINEER Inhaled Oxygen Concentration - - Weight 67.4 kg (148 lb 9.4 oz) 03/30/2023 7:27 A M RADIOLOGICAL ENGINEER Height 165.1 cm (5' 5) 03/30/2023 7:27 AM RADIOLOGICAL ENGINEER Body Mass Index 24.73 03/30/2023 7:27 AM RADIOLOGICAL ENGINEER Plan of Treatment Health Maintenance Due Date [...] 11/30/2020, 11/30/2020 Medical Devices Implanted Type Area Agricultural Education Instructor Device Identifier Shelf Expiration Date Model / Serial / Lot Stent Uret [id number] Percuflex Hydroplus - [id number] Implanted:Qty: 1 on 03/30/2023 by Jaylen Raphael MD at [facility] Right: Ureter [facility] 11/03/2025 [id number] / / [id number] Procedures Procedure Name Priority Date/Time Associated Diagnosis Comments NM RENAL SCAN WITH FUROSEMIDE Routine 09/21/2023 11:26 AM CDT Unspecified hydronephrosis COLONOSCOPY 11/30/2020 9:18 AM CDT from Last 3 Months or Most Recently Relevant to Health Maintenance Results * NM RENAL SCAN WITH FUROSEMIDE (09/21/2023 11:26 AM CDT) Anatomical Region Laterality Modality K[facility] 11:2 6 AM CDT Impressions 09/21/2023 2:07 PM CDT 1. Moderately dilated right renal pelvis with delayed, but net radiotracer excretion with persistent radiotracer uptake in the renal collecting system on post void images suggesting an obstructive process at the ureteropelvic junction 2. Normal left kidney Narrative 09/21/2023 2:07 PM CDT For Patients: As a result of the Century Cures Act, medical imaging exams and procedure reports are released immediately into your electronic medical record. You may view this report before your referring provider. If you have questions, please contact your health care provider. EXAM: NM RENAL SCAN WITH FUROSEMIDE LOCATION: [facility] DATE: 09/21/2023 INDICATION: Hydronephrosis. Obstruction evaluation. COMPARISON: Retrograde pyelogram dated 03/30/2023 TECHNIQUE: 8.5 mCi of technetium-99m MAG3, IV followed by abdominal imaging. 40 mg of Lasix, IV. FINDINGS: Differential renal function of 55% on the left and 41% on the right. Prompt clearance of radiotracer from the left renal collecting system (Lasix T1/2: 6 minutes) without evidence of obstruction. Moderately dilated right renal pelvis with delayed, but net radiotracer excretion with persistent radiotracer uptake in the renal collecting system on post void images suggesting an obstructive process at the ureteropelvic junction (Lasix T1/2: 17.5 minutes) Procedure Note Moris Workman MD - 09/21/2023 For Patients: As a result of the Century Cures Act, medical imagingexams and procedure reports are released immediately into your electronicmedical record. You may view this report before your referring provider.If you have questions, please contact your health care provider. EXAM: NM RENAL SCAN WITH FUROSEMIDE LOCATION: [facility] DATE: 09/21/2023 INDICATION: Hydronephrosis. Obstruction evaluation. COMPARISON: Retrograde pyelogram dated 03/30/2023 TECHNIQUE: 8.5 mCi of technetium-99m MAG3, IV followed by abdominalimaging. 40 mg of Lasix, IV. FINDINGS: Differential renal function of 55% on the left and 41% on theright. Prompt clearance of radiotracer from the left renal collectingsystem (Lasix T1/2: 6 minutes) without evidence of obstruction. Moderatelydilated right renal pelvis with delayed, but net radiotracer excretionwith persistent radiotracer uptake in the renal collecting system on postvoid images suggesting an obstructive process at the ureteropelvicjunction (Lasix T1/2: 17.5 minutes) IMPRESSION: 1. Moderately dilated right renal pelvis with delayed, but net radiotracerexcretion with persistent radiotracer uptake in the renal collectingsystem on post void images suggesting an obstructive process at theureteropelvic junction 2. Normal left kidney Jaylen Raphael MD NM * COLONOSCOPY (11/30/2020 9:18 AM CDT) 11/30/2020 [...] adequate candidate for conscious sedation. The [id number] was passed through the anus and advanced [...] there are any questions, please contact the internal sales engineer. Moderate Sedation: Moderate (conscious) sedation was administered [...] 9:18 AM Procedure Code(s): --- Professional --- 56240, Colonoscopy, flexible; with removalof tumor(s), polyp(s), or other lesion(s) bysnare technique 14405, 59, Colonoscopy, flexible; withbiopsy, single or multiple Diagnosis Code(s): --- Professional --- K63.5, Polyp of colon K62.1, Rectal polyp Q43.8, Other specified congenitalmalformations of intestine CPT copyright 2020 [employer]. All rights reserved. The codes documented in this report are preliminary and upon substation electrician reviewmay be revised to meet current compliance [...] discuss on day of admission Care Teams Director School Of Nursing Relationship Specialty Start Date End Date Nazia Morrison MD [address] [place] [address] PCP - General 04/07/19
--- OUTSIDE RECORDS SUMMARY | 2023-11-11 12:48 | XMS_ITS | Clinical Summary ---
Author Organization [facility] Address [address] [place] [address] Care Team Providers Care Contour Band Saw Operator Vertical Name Role Phone [facility] Primary Care Provider Allergies Active [...] Comments Blood Pressure 151/75 07/07/2023 4:59 PM WATER HYDRANT INSTALLER Pulse 67 07/07/2023 4:59 PM WATER HYDRANT INSTALLER Temperature 36.7 ??C (98 ??F) 07/07/2023 3:48 PM WATER HYDRANT INSTALLER Respiratory Rate 20 07/07/2023 4:59 PM WATER HYDRANT INSTALLER Oxygen Saturation 98% 07/07/2023 4:59 PM WATER HYDRANT INSTALLER Inhaled Oxygen Concentration - - Weight 63.8 kg (140 lb 10.5 oz) 04/07/2019 3:27 PM WATER HYDRANT INSTALLER Height 165.1 cm (5' 5) 03/28/2018 1:58 PM WATER HYDRANT INSTALLER Body Mass Index 23.41 03/28/2018 1:58 PM WATER HYDRANT INSTALLER Plan of Treatment Health Maintenance Due Date Last Done Comments ANNUAL REVIEW OF ORDERS 1950 CT COLONOGRAPHY 1950 FLEX SIG 1950 sDNA (Cologuard) 1950 LUNG CANCER SCREENING 1998 RSV VACCINE ( & 60+) (1 - 1-dose 60+ series) 2008 FIT 05/25/2012 05/25/2011, 04/21/2010 ADVANCE CARE PLANNING 05/25/2016 05/25/2011, 012 FALL RISK ASSESSMENT 10/07/2016 10/08/2015, 08/18/2014, 07/11/2013 MEDICARE ANNUAL WELLNESS VISIT 10/07/2016 10/08/2015, 08/18/2014, 07/11/2013, Additional history exists LIPID 08/19/2019 08/18/2014, 06/15, 07/04/2012, Additional history exists BMP 10/06/2019 04/07/2019, 09/12, 08/18/2014, Additional history exists GLUCOSE 04/07/2022 04/07/2019, 09/12, 08/18/2014, Additional history exists COVID-19 Vaccine (3 - 2022- season) 2023 08/20/2020, 07/23/2020 PHQ-2 (once per [...] BASIC METABOLIC PANEL STAT 04/07/2019 4:08 PM WATER HYDRANT INSTALLER MA SCREENING LEFT W/ CHRISS Routine 12/12/2017 [...] STOOL 1-3 SPEC Routine 05/25/2011 10:36 AM WATER HYDRANT INSTALLER Routine general medical examination at a health care facility DX BONE DENSITY Routine 04/26/2010 Osteopenia from Last 3 Months or Most Recently Relevant to Health Maintenance Results * Basic metabolic panel (04/07/2019 4:08 PM WATER HYDRANT INSTALLER) Sodium 139 133 - 144 mmol/L 04/07/2019 4:33 PM [facility] Potassium 3.7 3.4 - 5.3 mmol/L 04/07/2019 4:33 PM [facility] Chloride 107 94 - 109 mmol/L 04/07/2019 4:33 PM [facility] Carbon Dioxide 26 20 - 32 mmol/L 04/07/2019 4:40 PM [facility] Anion Gap 6 3 - 14 mmol/L 04/07/2019 4:40 PM [facility] Glucose 88 70 - 99 mg/dL 04/07/2019 4:40 PM [facility] Urea Nitrogen 15 7 - 30 mg/dL 04/07/2019 4:40 PM WATER HYDRANT INSTALLER [facility] Creatinine 0.68 0.52 - 1.04 mg/dL 04/07/2019 4:40 PM [facility] GFR Estimate 88 >60 mL/min/{1. 73_m2} 04/07/2019 4:40 PM WATER HYDRANT INSTALLER [facility] Comment: Non GFR Calc Starting 2018, serum creatinine based estimated GFR (eGFR) will be calculated using the Chronic Kidney Disease Epidemiology Collaboration (CKD-EPI) equation. GFR Estimate If Black >90 >60 mL/min/{1. 73_m2} 04/07/2019 4:40 PM WATER HYDRANT INSTALLER [facility] Comment: GFR Calc Starting 2018, serum creatinine based estimated GFR (eGFR) will be calculated using the Chronic Kidney Disease Epidemiology Collaboration (CKD-EPI) equation. Calcium 9.2 8.5 - 10.1 mg/dL 04/07/2019 4:40 PM [facility] Blood specimen (specimen) 04/07/2019 4:08 PM WATER HYDRANT INSTALLER 04/07/2019 4:17 PM WATER HYDRANT INSTALLER Toney Barakat FERRY HAND SENIOR INFORMATION SECURITY ANALYST LAB - BLOOD O RDERABLES [facility] [address] [place] [address], [facility] [phone] [facility] [address] [place] [address], [facility] [phone] * MA Screen Left w/Chriss (12/12/2017 1:33 [...] established for newborns, infants, and children NR [facility] Blood specimen (specimen) 10/08/2015 9:39 AM CDT 10/08/2015 9:40 AM CDT Blanche Gilmore MD LAB - BLOO D ORDERABLES [address] [address] * Colonoscopy - HIM Scan (08/26/2014) Bety Masters MD PROCEDURES * LIPID REFLEX TO DIRECT LDL PANEL (08/18/2014 9:55 AM CDT) Cholesterol 155 <200 mg/dL [facility] Comment: LDL Cholesterol is the primary guide to therapy. The NCEP recommends further evaluation of: patients with cholesterol greater than 200 mg/dL if additional risk factors are present, cholesterol greater than 240 mg/dL, triglycerides greater than 150 mg/dL, or HDL less than 40 mg/dL. Triglycerides 68 0 - 150 mg/dL [facility] Comment:Fasting specimen HDL Cholesterol 66 >50 mg/dL [facility] LDL Cholesterol Calculated 75 0 - 129 mg/dL [facility] Comment: LDL Cholesterol is the primary guide to therapy: LDL-cholesterol goal in high risk patients is <100 mg/dL and in very high risk patients is <70 mg/dL. VLDL-Cholesterol 14 0 - 30 mg/dL [facility] Cholesterol/HDL Ratio 2.3 0.0 - 5.0 [facility] Blood specimen (specimen) 08/18/2014 9:55 AM CDT 08/18/2014 9:56 AM CDT Bety Masters MD LAB - BLOOD O RDERABLES Performing Organization Address City/[facility]/ZIP Co de Phone Number [facility] [address] [place] [address] * Occult blood stool 1-3 spec (05/25/2011 10:36 AM WATER HYDRANT INSTALLER) Occult Blood Slide 1 Negative NEG [facility] Slide 1 Date 05/25/2011 [facility] Stool specimen (specimen) 05/25/2011 10:36 AM WATER HYDRANT INSTALLER 05/25/2011 10:56 AM WATER HYDRANT INSTALLER Connor Garcia MD LAB - STOOLS ORDERAB LES Performing Organization Address City/[facility]/ZIP Co de Phone Number [facility] * Dexa hip/pelvis/spine* (04/26/2010) Anatomical Region Laterality Modality Dexa Other Impressions 04/26/2010 BONE DENSITOMETRY [employer] [facility] April 26, 2010 PATIENT: ??Pippa Moore CHART: [id number] : ??1950 AGE: ??59 year old SEX: ??female REFERRING PHYSICIAN: ??Connor Garcia M.D, ?? PROCEDURE: ??Bone density scanning was performed using DEXA technology performed on a [employer] Scanner. ??Reporting is completed in the form of a T-score. ??The T-score represents the standard deviation from peak bone mass based on a young healthy adult. Discharging Machine Operator performing scan: ??Sweetie Francis REFERENCE T-SCORES: ? Normal ? Greater than -1.0 ? Osteopenia ?-1.0 to -2.5 ? Osteoporosis ?? Less than -2.5 ? INDICATIONS: ??Post-menopausal, Follow-up osteopenia, Tobacco abuse CURRENT TREATMENT: ??[facility] FINDINGS: ?Lumbar Spine L1-L3: ??T-score -0.7 ?Left Femoral Neck: ??T-score -0.8 ?Right Femoral Neck: ??T-score -1.0 ? Comparison is performed to previous DEXA performed on a [employer] Scanner on 2003 and [facility] scanner on 2000. Electronically filed by Sweetie [...] Recently Relevant to Health Maintenance Care Teams Contour Band Saw Operator Vertical Relationship Specialty Start Date End Date [facility] [address] [place] [address] PCP - General 04/07/19
== END 2023-11-11 12:46 | disposition home or self-care (01) ==
PROVIDERS: PCP Emergency Medicine; Visit Provider Family Medicine
DX: B99.9 Unspecified infectious disease (principal)
CPT/HCPCS: 86618

== ENCOUNTER 2023-12-17 12:50 | Outpatient (RCR) | payer MEDICARE, SELFPAY | END 2024-02-19 23:59 | disposition home or self-care (01) | LOC: CCIC 12:50 | PROVIDERS: PCP Emergency Medicine; Visit Provider Physician Assistant | DX: C50.912 Malignant neoplasm of unspecified site of left female breast (principal); Z17.0 Estrogen receptor positive status [ER+]; M85.80 Other specified disorders of bone density and structure, unspecified site; Z79.811 Long term (current) use of aromatase inhibitors; Z90.13 Acquired absence of bilateral breasts and nipples | CPT/HCPCS: 99214; 99215; G0463 ==

== ENCOUNTER 2024-02-15 12:34 | Outpatient (CLI) | payer MEDICARE, SELFPAY ==
--- OUTSIDE RECORDS SUMMARY | 2024-02-15 12:37 | XMS_ITS | Clinical Summary ---
Author Organization [facility] Address [address] [place] [address] Care Team Providers Care Automotive Quality Manager Name Role Phone Clinic, [facility] Primary Care Provider Allergies Active [...] Administration Dates Next Due Influenza (High Dose) Trival ent,PF (Fluzone) 01/27/2014 Influenza (IIV3) PF 01/23/2013, 1,02/06/2010, 008,03/11/2007,03/02/2006,04/26/2005 [...] Comments Blood Pressure 151/75 07/07/2023 4:59 PM CAMOUFLAGE ASSEMBLER Pulse 67 07/07/2023 4:59 PM CAMOUFLAGE ASSEMBLER Temperature 36.7 ??C (98 ??F) 07/07/2023 3:48 PM CAMOUFLAGE ASSEMBLER Respiratory Rate 20 07/07/2023 4:59 PM CAMOUFLAGE ASSEMBLER Oxygen Saturation 98% 07/07/2023 4:59 PM CAMOUFLAGE ASSEMBLER Inhaled Oxygen Concentration - - Weight 63.8 kg (140 lb 10.5 oz) 04/07/2019 3:27 PM CAMOUFLAGE ASSEMBLER Height 165.1 cm (5' 5) 03/28/2018 1:58 PM CAMOUFLAGE ASSEMBLER Body Mass Index 23.41 03/28/2018 1:58 PM CAMOUFLAGE ASSEMBLER Plan of Treatment Health Maintenance Due Date Last Done Comments ANNUAL REVIEW OF HM ORDERS 1950 CT COLONOGRAPHY 1950 FLEX SIG 1950 sDNA (Cologuard) 1950 LUNG CANCER SCREENING 1998 FIT 05/25/2012 05/25/2011, 04/21/2010 ADVANCE CARE PLANNING 05/25/2016 05/25/2011, 012 FALL RISK ASSESSMENT 10/07/2016 10/08/2015, 08/18/2014, 07/11/2013 MEDICARE ANNUAL WELLNESS VISIT 10/07/2016 10/08/2015, 08/18/2014, 07/11/2013, Additional history exists LIPID 08/19/2019 08/18/2014, 06/15, 07/04/2012, Additional history exists BMP 10/06/2019 04/07/2019, 09/12, 08/18/2014, Additional history exists GLUCOSE 04/07/2022 04/07/2019, 09/12, 08/18/2014, Additional history exists RSV VACCINE (1 - 1-dose 75+ series) 2023 PHQ-2 (once per calendar year) 2023 10/08/2015 COVID-19 Vaccine ( - 2023- season) 2024 08/20/2020, 07/23/2020 INFLUENZA VACCINE (#1) 2024 , 02/06/2022, 01/12/2022, Additional history exists DEXA 04/26/2025 04/26/2010, 02/28/2004 DTAP/TDAP/TD IMMUNIZATION (3 - Td or Tdap) 10/31/2026 10/31/2016, 04/26/2010, 11/03/1999 COLONOSCOPY 11/30/2030 11/30/2020, 08/12, 08/16/2009, Additional history exists COLORECTAL CANCER SCREENING 11/30/2030 HEPATITIS C SCREENING Completed 10/08/2015 MAMMO SCREENING Discontinued 12/12/2017, 12/12, 07/13/2014, Additional history exists ZOSTER IMMUNIZATION Completed 09/14/2019, 09/13/2018, 07/12/2018 Pneumococcal Vaccine: 65+ Years Completed 05/14/2020, 11/06/2016, 10/08/2015 HPV IMMUNIZATION Aged Out No [...] BASIC METABOLIC PANEL STAT 04/07/2019 4:08 PM CAMOUFLAGE ASSEMBLER MA SCREENING LEFT W/ CHRISS Routine 12/12/2017 [...] STOOL 1-3 SPEC Routine 05/25/2011 10:36 AM CAMOUFLAGE ASSEMBLER Routine general medical examination at a health care facility DX BONE DENSITY Routine 04/26/2010 Osteopenia from Last 3 Months or Most Recently Relevant to Health Maintenance Results * Basic metabolic panel (04/07/2019 4:08 PM CAMOUFLAGE ASSEMBLER) Sodium 139 133 - 144 mmol/L 04/07/2019 4:33 PM [facility] Potassium 3.7 3.4 - 5.3 mmol/L 04/07/2019 4:33 PM [facility] Chloride 107 94 - 109 mmol/L 04/07/2019 4:33 PM [facility] Carbon Dioxide 26 20 - 32 mmol/L 04/07/2019 4:40 PM [facility] Anion Gap 6 3 - 14 mmol/L 04/07/2019 4:40 PM [facility] Glucose 88 70 - 99 mg/dL 04/07/2019 4:40 PM [facility] Urea Nitrogen 15 7 - 30 mg/dL 04/07/2019 4:40 PM CAMOUFLAGE ASSEMBLER [facility] Creatinine 0.68 0.52 - 1.04 mg/dL 04/07/2019 4:40 PM [facility] GFR Estimate 88 >60 mL/min/{1. 73_m2} 04/07/2019 4:40 PM [facility] Comment: Non GFR Calc Starting 2018, serum creatinine based estimated GFR (eGFR) will be calculated using the Chronic Kidney Disease Epidemiology Collaboration (CKD-EPI) equation. GFR Estimate If Black >90 >60 mL/min/{1. 73_m2} 04/07/2019 4:40 PM CAMOUFLAGE ASSEMBLER [facility] Comment: GFR Calc Starting 2018, serum creatinine based estimated GFR (eGFR) will be calculated using the Chronic Kidney Disease Epidemiology Collaboration (CKD-EPI) equation. Calcium 9.2 8.5 - 10.1 mg/dL 04/07/2019 4:40 PM [facility] Blood specimen (specimen) 04/07/2019 4:08 PM CAMOUFLAGE ASSEMBLER 04/07/2019 4:17 PM CAMOUFLAGE ASSEMBLER Toney Barakat HOURLY SHIFT MANAGER ROUTE SALES DELIVERY DRIVERS SUPERVISOR LAB - BLOOD O RDERABLES [facility] [address] [place] [address], [facility] [phone] [facility] [address] [place] [address], [facility] [phone] * MA Screen Left w/Chriss (12/12/2017 1:33 [...] established for newborns, infants, and children NR [facility] Blood specimen (specimen) 10/08/2015 9:39 AM CDT 10/08/2015 9:40 AM CDT Blanche Gilmore MD LAB - BLOO D ORDERABLES [facility] [address] [place] [address] * Colonoscopy - HIM Scan (08/26/2014) Bety Masters MD PROCEDURES * LIPID REFLEX TO DIRECT LDL PANEL (08/18/2014 9:55 AM CDT) Cholesterol 155 <200 mg/dL [facility] Comment: LDL Cholesterol is the primary guide to therapy. The NCEP recommends further evaluation of: patients with cholesterol greater than 200 mg/dL if additional risk factors are present, cholesterol greater than 240 mg/dL, triglycerides greater than 150 mg/dL, or HDL less than 40 mg/dL. Triglycerides 68 0 - 150 mg/dL [facility] Comment:Fasting specimen HDL Cholesterol 66 >50 mg/dL [facility] LDL Cholesterol Calculated 75 0 - 129 mg/dL [facility] Comment: LDL Cholesterol is the primary guide to therapy: LDL-cholesterol goal in high risk patients is <100 mg/dL and in very high risk patients is <70 mg/dL. VLDL-Cholesterol 14 0 - 30 mg/dL [facility] Cholesterol/HDL Ratio 2.3 0.0 - 5.0 [facility] Blood specimen (specimen) 08/18/2014 9:55 AM CDT 08/18/2014 9:56 AM CDT Bety Masters MD LAB - BLOOD O RDERABLES Performing Organization Address City/[facility]/ZIP Co de Phone Number [facility] [address] [place] [address] * Occult blood stool 1-3 spec (05/25/2011 10:36 AM CAMOUFLAGE ASSEMBLER) Occult Blood Slide 1 Negative NEG [facility] Slide 1 Date 05/25/2011 [facility] Stool specimen (specimen) 05/25/2011 10:36 AM CAMOUFLAGE ASSEMBLER 05/25/2011 10:56 AM CAMOUFLAGE ASSEMBLER Connor Garcia MD LAB - STOOLS ORDERAB LES Performing Organization Address City/[facility]/ZIP Co de Phone Number [facility] * Dexa hip/pelvis/spine* (04/26/2010) Anatomical Region Laterality Modality Dexa Other Impressions 04/26/2010 BONE DENSITOMETRY [facility] April 26, 2010 PATIENT: ??Pippa Moore CHART: [id number] : ??1950 AGE: ??59 year old SEX: ??female REFERRING PHYSICIAN: ??Connor Garcia M.D, ?? PROCEDURE: ??Bone density scanning was performed using DEXA technology performed on a [employer] Scanner. ??Reporting is completed in the form of a T-score. ??The T-score represents the standard deviation from peak bone mass based on a young healthy adult. Senior Software Quality Engineer performing scan: ??Sweetie Francis REFERENCE T-SCORES: ? Normal ? Greater than -1.0 ? Osteopenia ?-1.0 to -2.5 ? Osteoporosis ?? Less than -2.5 ? INDICATIONS: ??Post-menopausal, Follow-up osteopenia, Tobacco abuse CURRENT TREATMENT: ??[facility] FINDINGS: ?Lumbar Spine L1-L3: ??T-score -0.7 ?Left Femoral Neck: ??T-score -0.8 ?Right Femoral Neck: ??T-score -1.0 ? Comparison is performed to previous DEXA performed on a [employer] Scanner on 2003 and [facility] scanner on 2000. Electronically filed by Sweetie [...] Recently Relevant to Health Maintenance Care Teams Automotive Quality Manager Relationship Specialty Start Date End Date [facility], [facility] [address] [place] [id number] PCP - General 04/07/19
--- OUTSIDE RECORDS SUMMARY | 2024-02-15 12:37 | XMS_ITS | Referral Summary ---
Author Organization [facility] Address [address] [place] [address] Care Team Providers Care Class B Driver Name Role Phone Clinic, [facility] Primary Care Provider Allergies Active Allergy Reactions [...] Comments Blood Pressure 151/75 07/07/2023 4:59 PM SAND TESTER Pulse 67 07/07/2023 4:59 PM SAND TESTER Temperature 36.7 ??C (98 ??F) 07/07/2023 3:48 PM SAND TESTER Respiratory Rate 20 07/07/2023 4:59 PM SAND TESTER Oxygen Saturation 98% 07/07/2023 4:59 PM SAND TESTER Inhaled Oxygen Concentration - - Weight 63.8 kg (140 lb 10.5 oz) 04/07/2019 3:27 PM SAND TESTER Height 165.1 cm (5' 5) 03/28/2018 1:58 PM SAND TESTER Body Mass Index 23.41 03/28/2018 1:58 PM SAND TESTER Plan of Treatment Not on file Procedures Procedure Name Priority Date/Time Associated Diagnosis Comments BASIC METABOLIC PANEL STAT 04/07/2019 4:08 PM SAND TESTER MA SCREENING LEFT W/ CHRISS Routine 12/12/2017 [...] STOOL 1-3 SPEC Routine 05/25/2011 10:36 AM SAND TESTER Routine general medical examination at a health care facility DX BONE DENSITY Routine 04/26/2010 Osteopenia from Last 3 Months or Most Recently Relevant to Health Maintenance Results * Basic metabolic panel (04/07/2019 4:08 PM SAND TESTER) Sodium 139 133 - 144 mmol/L 04/07/2019 4:33 PM [facility] Potassium 3.7 3.4 - 5.3 mmol/L 04/07/2019 4:33 PM [facility] Chloride 107 94 - 109 mmol/L 04/07/2019 4:33 PM [facility] Carbon Dioxide 26 20 - 32 mmol/L 04/07/2019 4:[address] [facility] Anion Gap 6 3 - 14 mmol/L 04/07/2019 4:[address] [facility] Glucose 88 70 - 99 mg/dL 04/07/2019 4:[address] [facility] Urea Nitrogen 15 7 - 30 mg/dL 04/07/2019 4:[address] [facility] Creatinine 0.68 0.52 - 1.04 mg/dL 04/07/2019 4:[address] [facility] GFR Estimate 88 >60 mL/min/{1. 73_m2} 04/07/2019 4:[address] [facility] Comment: Non GFR Calc Starting 2018, serum creatinine based estimated GFR (eGFR) will be calculated using the Chronic Kidney Disease Epidemiology Collaboration (CKD-EPI) equation. GFR Estimate If Black >90 >60 mL/min/{1. 73_m2} 04/07/2019 4:[address] [facility] Comment: GFR Calc Starting 2018, serum creatinine based estimated GFR (eGFR) will be calculated using the Chronic Kidney Disease Epidemiology Collaboration (CKD-EPI) equation. Calcium 9.2 8.5 - 10.1 mg/dL 04/07/2019 4:40 PM SAND TESTER [facility] Blood specimen (specimen) 04/07/2019 4:08 PM SAND TESTER 04/07/2019 4:17 PM SAND TESTER Toney Barakat APRN LICENSED MENTAL HEALTH COUNSELOR LAB - BLOOD O RDERABLES [facility] [address] [place] [address], [facility] [phone] [facility] [address] [place] [address], [facility] [phone] * MA Screen Left w/Chriss (12/12/2017 1:33 [...] C antibody (10/08/2015 9:39 AM CDT) Pathologist [facility] Hepatitis C Antibody Nonreactive Assay performance characteristics have not been established for newborns, infants, and children NR [facility] Blood specimen (specimen) 10/08/2015 9:39 AM CDT 10/08/2015 9:40 AM CDT Blanche Gilmore MD LAB - BLOO D ORDERABLES [facility] [address] [place] [address] * Colonoscopy - HIM Scan (08/26/2014) Bety Masters MD PROCEDURES * LIPID REFLEX TO DIRECT LDL PANEL (08/18/2014 9:55 AM CDT) Pathologist [facility] Cholesterol 155 <200 mg/dL [facility] Comment: LDL Cholesterol is the primary guide to therapy. The NCEP recommends further evaluation of: patients with cholesterol greater than 200 mg/dL if additional risk factors are present, cholesterol greater than 240 mg/dL, triglycerides greater than 150 mg/dL, or HDL less than 40 mg/dL. Triglycerides 68 0 - 150 mg/dL [facility] Comment:Fasting specimen HDL Cholesterol 66 >50 mg/dL [facility] LDL Cholesterol Calculated 75 0 - 129 mg/dL [facility] Comment: LDL Cholesterol is the primary guide to therapy: LDL-cholesterol goal in high risk patients is <100 mg/dL and in very high risk patients is <70 mg/dL. VLDL-Cholesterol 14 0 - 30 mg/dL [facility] Cholesterol/HDL Ratio 2.3 0.0 - 5.0 [facility] Blood specimen (specimen) 08/18/2014 9:55 AM CDT 08/18/2014 9:56 AM CDT Bety Masters MD LAB - BLOOD O RDERABLES [facility] [address] [place] [address] * Occult blood stool 1-3 spec (05/25/2011 10:36 AM SAND TESTER) Occult Blood Slide 1 Negative NEG [facility] Slide 1 Date 05/25/2011 [facility] Stool specimen (specimen) 05/25/2011 10:36 AM SAND TESTER 05/25/2011 10:56 AM SAND TESTER Connor Garcia MD LAB - STOOLS ORDERAB LES Performing Organization Address [facility] Co de Phone Number [facility] * Dexa hip/pelvis/spine* (04/26/2010) Anatomical Region Laterality Modality Dexa Other Impressions 04/26/2010 BONE DENSITOMETRY [facility] April 26, 2010 PATIENT: ??Pippa Moore CHART: [id number] : ??1950 AGE: ??59 year old SEX: ??female REFERRING PHYSICIAN: ??Connor Garcia M.D, ?? PROCEDURE: ??Bone density scanning was performed using DEXA technology performed on a [employer] Scanner. ??Reporting is completed in the form of a T-score. ??The T-score represents the standard deviation from peak bone mass based on a young healthy adult. Grinder Set Up Operator Surface performing scan: ??Sweetie Francis REFERENCE T-SCORES: ? Normal ? Greater than -1.0 ? Osteopenia ?-1.0 to -2.5 ? Osteoporosis ?? Less than -2.5 ? INDICATIONS: ??Post-menopausal, Follow-up osteopenia, Tobacco abuse CURRENT TREATMENT: ??[facility] FINDINGS: ?Lumbar Spine L1-L3: ??T-score -0.7 ?Left Femoral Neck: ??T-score -0.8 ?Right Femoral Neck: ??T-score -1.0 ? Comparison is performed to previous DEXA performed on a [employer] Scanner on 2003 and [employer] scanner on 2000. Electronically filed by Sweetie [...] Recently Relevant to Health Maintenance Care Teams Class B Driver Relationship Specialty Start Date End Date Clinic, [facility] [address] [place] [address] [phone] PCP - General 04/07/19
--- OUTSIDE RECORDS SUMMARY | 2024-02-15 12:37 | XMS_ITS | Clinical Summary ---
Author Organization [facility] Address [place], [place] [address] Care Team Providers Care Customer Solutions Supervisor Name Role Phone Nazia Morrison MD Primary Care Provider [phone] Allergies Active Allergy Reactions Criticality Noted Date Comments Unlisted Allergen (Include Detail In Comments) Rash,Edema 03/29/2023 Calcium Channel blockers, swelling in your feet and ankles Medications Medication Sig Dispensed Refills Start Date End Date Status multivit,iron,psychological examiner als/lutein (CENTRUM SILVER ULTRA WOMEN'S ORAL) Take [...] both eyes 01/26/2022 Adenomatous colon polyp 12/01/2020 Overview (12/01/2020): Colonoscopy 11/2020 2 polyps, repeat in 5 years, PEG 4-8L Aneurysm 07/02/2020 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 IZA 12/30/2019 Antiplatelet or antithrombot ic long-term use: Clopidogrel/ASA 12/30/2019 Multiple intracranial aneurysms 04/08/2019 Overview (05/22/2019): S/p endovascular WEB embolization of incidental 14mm [...] Sex Assigned at Female 07/20/2020 10:[address] Gender Identity Female 07/20/2020 10:[address] Sexual Orientation Choose not to disclose 2020 10:[address] Obstetrics History Last Filed Vital Signs Vital Sign Reading Time Taken Comments Blood Pressure 130/66 03/30/2023 12:[address]DER Pulse 66 03/30/2023 12:[address] Temperature 36.4 ??C (97.6 ??F) 03/30/2023 12:[address] Respiratory Rate 16 03/30/2023 12:[address] Oxygen Saturation 99% 03/30/2023 12:[address] Inhaled Oxygen Concentration - - Weight 67.4 kg (148 lb 9.4 oz) 03/30/2023 7:[address] BUILDER Height 165.1 cm (5' 5) 03/30/2023 7:[address] Body Mass Index 24.73 03/30/2023 7:[address] Plan of Treatment Health Maintenance Due Date [...] 65+ (1 of 1 - PCV) 2013 RSV vaccine for adults or pr egnancy (1 - 1-dose 75+ series) 2023 COVID-19 vaccine series ( season) 2024 08/20/2020, 07/23/2020 Influenza for age 65+ 01/13/2024 Colonoscopy through age 75 11/30/203011/30, 11/30/2020, 11/30/2020 Medical Devices Implanted Type Area Senior Billing Consultant Device Identifier Shelf Expiration Date Model / Serial / Lot Stent Uret [id number] Percuflex Hydroplus - [id number] Implanted:Qty: 1 on 03/30/2023 by Jaylen Raphael MD at [facility] Right: [employer]ter [employer] Urology 11/03/2025 [id number] / / [id number] Procedures Procedure Name Priority Date/Time Associated Diagnosis [...] adequate candidate for conscious sedation. The [id number] was passed through the anus and advanced [...] there are any questions, please contact the touch up painter. Moderate Sedation: Moderate (conscious) sedation was administered [...] 9:18 AM Procedure Code(s): --- Professional --- 77389, Colonoscopy, flexible; with removalof tumor(s), polyp(s), or other lesion(s) byjony technique 31623, 59, Colonoscopy, flexible; withbiopsy, single or multiple Diagnosis Code(s): --- Professional --- K63.5, Polyp of colon K62.1, Rectal polyp Q43.8, Other specified congenitalmalformations of intestine CPT copyright 2020 [employer]. All rights reserved. The codes documented in this report are preliminary and upon ladle handler reviewmay be revised to meet current compliance [...] discuss on day of admission Care Teams Customer Solutions Supervisor Relationship Specialty Start Date End Date Nazia Morrison MD [address] [place] [phone] PCP - General 04/07/19
--- NOTE | 2024-02-15 13:00 | CRLHL7_ITS ---
For Patients: As a result of the Century Cures Act, medical imaging exams and procedure reports are released immediately into your electronic medical record. You may view this report before your referring provider. If you have questions, please contact your health care provider. INDICATION: Lung cancer screening. TECHNIQUE: Low-dose lung cancer screening non-contrast CT chest. Dose reduction techniques were used. COMPARISON: CT 02/21/2023 FINDINGS: Mastectomies NODULES: 4 millimeter subpleural right upper lobe nodule stable no new nodules are seen LUNGS AND PLEURA: Apical fibrotic changes emphysema. MEDIASTINUM: Normal. CORONARY ARTERY CALCIFICATION: Present. LIMITED UPPER ABDOMEN: Normal. MUSCULOSKELETAL: Normal. IMPRESSION: 1. Stable study. LUNG-RADS CATEGORY: 2: Benign. RADIOLOGIST RECOMMENDATION: Continue annual screening with low-dose CT chest in 12 months. Please note that all CT scans at this facility use dose modulation, iterative reconstruction, and/or weight-based dosing when appropriate to reduce radiation dose to as low as reasonably achievable. Dictated by Violeta Huang MD @ 02/20/2024 3:59:23 PM (Electronically Signed)
== END 2024-02-15 12:35 | disposition home or self-care (01) ==
LOC: CT 12:35
PROVIDERS: PCP Emergency Medicine; Visit Provider Emergency Medicine
DX: Z12.2 Encounter for screening for malignant neoplasm of respiratory organs (principal); Z87.891 Personal history of nicotine dependence
CPT/HCPCS: 71271

== ENCOUNTER 2024-04-01 08:45 | Outpatient (CLI) | payer MEDICARE, SELFPAY ==
--- OUTSIDE RECORDS SUMMARY | 2024-04-05 00:41 | XMS_ITS | Referral Summary ---
Author Organization [facility] Address [address] [place] [phone] Care Team Providers Care Counseling Director Name Role Phone Clinic, [facility] Primary Care Provider Allergies Active Allergy Reactions Criticality Noted Date Comments No Known Allergies 02/10/2003 Medications Multiple Vitamins-Minerals (WOMENS MULTI PO) Ac tive Biotin 5000 MCG CAPS Take 1,000 mg by mouth Active Wheat Dextrin (BENEFIBER PO) Activ e losartan-hydrochl orothiazide (HYZAAR) 50-12.5 MG per tabletIndications :Benign essential hypertension Take 1 tablet by mouth daily 30 tablet 12 10/08/2015 Active Calcium Carbonate-Vit D-Min (CALCIUM 1200 PO) Take 1 tablet by mouth daily Active Active Problems Problem Noted Date Diagnosed Date History of breast cancer 11/05/2014 GERD (gastroesophageal reflux disease) 5 Hypertension goal BP (blood pressure) < 140/90 0 08/10/2014 Osteopenia 08/10/2014 Nevus 08/08/2013 Overview (09/17/2014): Do you wish to do the replacement in the background? yes Vitamin D deficiency disease 07/04/2012 CARDIOVASCULAR SCREENING; LDL GOAL LESS THAN 160 03/13/2010 Resolved Problems Problem Noted Date Diagnosed Date Resolved Date Advanced directives, counseling/discussion 05/25/2011 10/29/2023 Overview (05/25/2011): Advance Directive Problem List Overview: Name Relationship [...] School Help Needed Not on file 02/11 Comments No Sex and Gender Information Value Date Recorded Sex Assigned at Not on file Legal Sex Female 3:26 AM COLOR CORRECTOR Gender Identity Not on file Sexual Orientation Not on file Last Filed Vital Signs Vital Sign Reading Time Taken Comments Blood Pressure 151/75 07/07/2023 4:59 PM COLOR CORRECTOR Pulse 67 07/07/2023 4:59 PM COLOR CORRECTOR Temperature 36.7 C (98 F) 07/07/2023 3:48 PM COLOR CORRECTOR Respiratory Rate 20 07/07/2023 4:59 PM COLOR CORRECTOR Oxygen Saturation 98% 07/07/2023 4:59 PM COLOR CORRECTOR Inhaled Oxygen Concentration - - Weight 63.8 kg (140 lb 10.5 oz) 04/07/2019 3:27 PM COLOR CORRECTOR Height 165.1 cm (5' 5) 03/28/2018 1:58 PM COLOR CORRECTOR Body Mass Index 23.41 03/28/2018 1:58 PM COLOR CORRECTOR Plan of Treatment Not on file Procedures Procedure Name Priority Date/Time Associated Diagnosis Comments BASIC METABOLIC PANEL STAT 04/07/2019 4:08 PM COLOR CORRECTOR MA SCREENING LEFT W/ NASREEN Routine 12/12/2017 1:33 PM CDT Visit for [...] STOOL 1-3 SPEC Routine 05/25/2011 10:36 AM COLOR CORRECTOR Routine general medical examination at a [facility] care facility DX BONE DENSITY Routine 04/26/2010 Osteopenia from Last 3 Months or Most Recently Relevant to Health Maintenance Results * Basic metabolic panel (04/07/2019 4:08 PM COLOR CORRECTOR) Sodium 139 133 - 144 mmol/L 04/07/2019 4:33 PM [facility] Potassium 3.7 3.4 - 5.3 mmol/L 04/07/2019 4:33 PM [facility] Chloride 107 94 - 109 mmol/L 04/07/2019 4:33 PM [facility] Carbon Dioxide 26 20 - 32 mmol/L 04/07/2019 4:[address] [facility] Anion Gap 6 3 - 14 mmol/L 04/07/2019 4:[address] [facility] Glucose 88 70 - 99 mg/dL 04/07/2019 4:[address] [facility] Urea Nitrogen 15 7 - 30 mg/dL 04/07/2019 4:[address] [facility] Creatinine 0.68 0.52 - 1.04 mg/dL 04/07/2019 4:[address] [facility] GFR Estimate 88 >60 mL/min/{1. 73_m2} 04/07/2019 4:[address] [facility] Comment: Non GFR Calc Starting 2018, serum creatinine based estimated GFR (eGFR) will be calculated using the Chronic Kidney Disease Epidemiology Collaboration (CKD-EPI) equation. GFR Estimate If Black >90 >60 mL/min/{1. 73_m2} 04/07/2019 4:40 PM COLOR CORRECTOR [facility] Comment: GFR Calc Starting 2018, serum creatinine based estimated GFR (eGFR) will be calculated using the Chronic Kidney Disease Epidemiology Collaboration (CKD-EPI) equation. Calcium 9.2 8.5 - 10.1 mg/dL 04/07/2019 4:40 PM COLOR CORRECTOR [facility] Blood specimen (specimen) 04/07/2019 4:08 PM COLOR CORRECTOR 04/07/2019 4:17 PM COLOR CORRECTOR us Toney Barakat MECHANICAL DETAILER CUFF RUNNER LAB - BLOOD ORDERABLE S Final Result [facility] [address] [place] [address], [facility] [phone] [facility] [address] [place] [address], [facility] [phone] * MA Screen Left w/Nasreen (12/12/2017 1:33 PM CDT) Anatomical Region Laterality Modality Breast Bilateral Mammography Impressions 12/18/2017 8:40 AM CDT IMPRESSION: BI-RADS CATEGORY: 1 - Negative. RECOMMENDED FOLLOW-UP: Annual Mammography. Recommend routine annual screening mammography. Exam results letter mailed to patient. URSULA SPRINGER MD Narrative 12/18/2017 8:40 AM CDT SCREENING MAMMOGRAM, LEFT, DIGITAL w/CAD AND TOMOSYNTHESIS - 12/12/2017 1:33 PM. BREAST SYMPTOMS: No current breast complaints. COMPARISON: 01/04/17, 05/25/11. BREAST DENSITY: Heterogeneously dense. COMMENTS: No findings of suspicion for malignancy. The patient has had a prior right mastectomy. Procedure Note Ursula Springer MD - 12/18/2017 SCREENING MAMMOGRAM, LEFT, [...] mammography. Exam results letter mailed to patient. URSULA SPRINGER MD us Ashwini Pierre MD IMG MAMMOGRAPHY ORDERAB LES Final Result * Hepatitis C antibody (10/08/2015 9:39 AM CDT) Hepatitis C Antibody Nonreactive Assay performance characteristics have not been established for newborns, infants, and children NR [facility] Blood specimen (specimen) 10/08/2015 9:39 AM CDT 10/08/2015 9:40 AM CDT us Blanche Gilmore MD LAB - BLOOD ORDERA BLES Final Result [facility] [address] [place] [address] * Colonoscopy - HIM Scan (08/26/2014) us Bety Masters MD PROCEDURES Final Result * LIPID REFLEX TO DIRECT LDL PANEL (08/18/2014 9:55 AM CDT) Cholesterol 155 <200 mg/dL [facility] Comment: LDL Cholesterol is the primary guide to therapy. The NCEP recommends further evaluation of: patients with cholesterol greater than 200 mg/dL if additional risk factors are present, cholesterol greater than 240 mg/dL, triglycerides greater than 150 mg/dL, or HDL less than 40 mg/dL. Triglycerides 68 0 - 150 mg/dL [facility] Comment:Fasting specimen HDL Cholesterol 66 >50 mg/dL [facility] LDL Cholesterol Calculated 75 0 - 129 mg/dL [facility] Comment: LDL Cholesterol is the primary guide to therapy: LDL-cholesterol goal in high risk patients is <100 mg/dL and in very high risk patients is <70 mg/dL. VLDL-Cholesterol 14 0 - 30 mg/dL [facility] Cholesterol/HDL Ratio 2.3 0.0 - 5.0 [facility] Blood specimen (specimen) 08/18/2014 9:55 AM CDT 08/18/2014 9:56 AM CDT us Bety Masters MD LAB - BLOOD ORDERABLE S Final Result Performing Organization Address [facility] Co de Phone Number [facility] [address] [place] [address] * Occult blood stool 1-3 spec (05/25/2011 10:36 AM COLOR CORRECTOR) Occult Blood Slide [address] [facility] Slide 1 Date 05/25/2011 [facility] Stool specimen (specimen) 05/25/2011 10:36 AM COLOR CORRECTOR 05/25/2011 10:56 AM COLOR CORRECTOR us Connor Garcia MD LAB - STOOLS ORDERABLES Final R esult Performing Organization Address [facility] Co de Phone Number [facility] [address] [place] [address] * Dexa hip/pelvis/spine* (04/26/2010) Anatomical Region Laterality Modality Dexa Other Impressions 04/26/2010 BONE DENSITOMETRY [facility] April 26, 2010 PATIENT: Pippa Moore CHART: [id number] : 1950 AGE: [age] year old SEX: female REFERRING PHYSICIAN: Connor Garcia M.D, MD PROCEDURE: Bone density scanning was performed using DEXA technology performed on a [employer] Scanner. Reporting is completed in the form of a T-score. The T-score represents the standard deviation from peak bone mass based on a young healthy adult. Improvement Coordinator performing scan: Sweetie Francis REFERENCE T-SCORES: Normal Greater than -1.0 Osteopenia -1.0 to -2.5 Osteoporosis Less than -2.5 INDICATIONS: Post-menopausal, Follow-up osteopenia, Tobacco abuse CURRENT TREATMENT: [facility] FINDINGS: Lumbar Spine L1-L3: T-score -0.7 Left Femoral Neck: T-score -0.8 Right Femoral Neck: T-score -1.0 Comparison is performed to previous DEXA performed on a [employer] Scanner on 2003 and [facility] scanner on 2000. Electronically filed by Sweetie Francis 04/26/2010 4:19 PM Comparisons from different scanners that have not been cross calibrated, are not necessarily valid. Such a comparison has been performed here; one should interpret with caution. When compared with a scan dated 2000 and allowing for standardization calculations, there is suggestion [...] factors. Akila Hinkle M.D. Electronically signed Connor Delmar Garcia MD IMG DEXA ORDERABLES Edited from Last 3 Months or Most Recently Relevant to Health Maintenance Insurance [facility] [place] [address] [facility] MEDICARE ADVANTAGE Care Teams Counseling Director Relationship Specialty Start Date End Date Clinic, [facility] [address] [place] [phone] PCP - General 04/07/19
--- OUTSIDE RECORDS SUMMARY | 2024-04-05 00:41 | XMS_ITS | Clinical Summary ---
Author Organization [facility] Address [address] [place] [address] Care Team Providers Care Intake Rn Name Role Phone Clinic, [facility] Primary Care Provider Allergies Active Allergy Reactions [...] on file Legal Sex Female 3:26 AM SUPERVISOR FIREWORKS [employer]SEMBLY Gender Identity Not on file Sexual Orientation Not on file Last Filed Vital Signs Vital Sign Reading Time Taken Comments Blood Pressure 151/75 07/07/2023 4:59 PM SUPERVISOR [employer]WOR[employer]SEM[employer] Pulse 67 07/07/2023 4:59 PM SUPERVISOR [employer] Temperature 36.7 C (98 F) 07/07/2023 3:48 PM SUPERVISOR [employer]SEM[employer] Respiratory Rate 20 07/07/2023 4:59 PM SUPERVISOR [employer] Oxygen Saturation 98% 07/07/2023 4:59 PM SUPERVISOR [employer] Inhaled Oxygen Concentration - - Weight 63.8 kg (140 lb 10.5 oz) 04/07/2019 3:27 PM SUPERVISOR [employer]WOR[employer]SEMBL[employer] Height 165.1 cm (5' 5) 03/28/2018 1:58 PM SUPERVISOR FIREWOR[employer]SEMBLY Body Mass Index 23.41 03/28/2018 1:58 PM SUPERVISOR [employer]REWOR[employer]SEMBLY Plan of Treatment Health Maintenance Due Date [...] per calendar year) 2023 10/08/2015 COVID-19 Vaccine (3 - season) 2024 08/20/2020, 07/23/2020 INFLUENZA VACCINE (#1) [...] BASIC METABOLIC PANEL STAT 04/07/2019 4:08 PM SUPERVISOR [employer]REWOR[employer]SEMBL[employer] MA SCREENING LEFT W/ NASREEN Routine 12/12/2017 [...] STOOL 1-3 SPEC Routine 05/25/2011 10:36 AM SUPERVISOR FIREWOR[employer]SEMBLY Routine general medical examination at a health care facility DX BONE DENSITY Routine 04/26/2010 Osteopenia from Last 3 Months or Most Recently Relevant to Health Maintenance Results * Basic metabolic panel (04/07/2019 4:08 PM SUPERVISOR FIREWORKS ASSEMBLY) Sodium 139 133 - 144 mmol/L 04/07/2019 4:33 PM SUPERVISOR FIREWORKS ASSEMBLY [facility] Potassium 3.7 3.4 - 5.3 mmol/L 04/07/2019 4:33 PM [facility] Chloride 107 94 - 109 mmol/L 04/07/2019 4:33 PM [facility] Carbon Dioxide 26 20 - 32 mmol/L 04/07/2019 4:40 PM [facility] Anion Gap 6 3 - 14 mmol/L 04/07/2019 4:40 PM [facility] Glucose 88 70 - 99 mg/dL 04/07/2019 4:40 PM [facility] Urea Nitrogen 15 7 - 30 mg/dL 04/07/2019 4:40 PM [facility] Creatinine 0.68 0.52 - 1.04 mg/dL 04/07/2019 4:40 PM [facility] GFR Estimate 88 >60 mL/min/{1. 73_m2} 04/07/2019 4:40 PM [facility] Comment: Non GFR Calc Starting 2018, serum creatinine based estimated GFR (eGFR) will be calculated using the Chronic Kidney Disease Epidemiology Collaboration (CKD-EPI) equation. GFR Estimate If Black >90 >60 mL/min/{1. 73_m2} 04/07/2019 4:40 PM [facility] Comment: GFR Calc Starting 2018, serum creatinine based estimated GFR (eGFR) will be calculated using the Chronic Kidney Disease Epidemiology Collaboration (CKD-EPI) equation. Calcium 9.2 8.5 - 10.1 mg/dL 04/07/2019 4:40 PM [facility] Blood specimen (specimen) 04/07/2019 4:08 PM SUPERVISOR FIREWOR[employer]SEMBLY 04/07/2019 4:17 PM SUPERVISOR [employer] us Toney Barakat [employer] LAB - BLOOD ORDERABLE S Final Result [facility] [address] [place] [address], [facility] [phone] [facility] [address] [place] [address], [facility] [phone] * MA Screen Left w/Nasreen (12/12/2017 1:33 [...] established for newborns, infants, and children NR [facility] Blood specimen (specimen) 10/08/2015 9:39 AM CDT 10/08/2015 9:40 AM CDT us Blanche Gilmore MD LAB - BLOOD ORDERA BLES Final Result [facility] [address] [place] [address] * Colonoscopy - HIM Scan (08/26/2014) us Bety Masters MD PROCEDURES Final Result * LIPID REFLEX TO DIRECT LDL PANEL (08/18/2014 9:55 AM CDT) Cholesterol 155 <200 mg/dL [facility] Comment: LDL Cholesterol is the primary guide to therapy. The NCEP recommends further evaluation of: patients with cholesterol greater than 200 mg/dL if additional risk factors are present, cholesterol greater than 240 mg/dL, triglycerides greater than 150 mg/dL, or HDL less than 40 mg/dL. Triglycerides 68 0 - 150 mg/dL [facility] Comment:Fasting specimen HDL Cholesterol 66 >50 mg/dL [facility] LDL Cholesterol Calculated 75 0 - 129 mg/dL [facility] Comment: LDL Cholesterol is the primary guide to therapy: LDL-cholesterol goal in high risk patients is <100 mg/dL and in very high risk patients is <70 mg/dL. VLDL-Cholesterol 14 0 - 30 mg/dL [facility] Cholesterol/HDL Ratio 2.3 0.0 - 5.0 [facility] Blood specimen (specimen) 08/18/2014 9:55 AM CDT 08/18/2014 9:56 AM CDT us Bety Masters MD LAB - BLOOD ORDERABLE S Final Result [facility] [address] [place] [address] * Occult blood stool 1-3 spec (05/25/2011 10:36 AM SUPERVISOR FIREWOR[employer]SEMBL[employer]) Occult Blood Slide 1 Negative NEG [facility] Slide 1 Date 05/25/2011 [facility] Stool specimen (specimen) 05/25/2011 10:36 AM SUPERVISOR FIREWORKS ASSEMBLY 05/25/2011 10:56 AM SUPERVISOR FIREWOR[employer]SEMBL[employer] us Connor Garcia MD LAB - STOOLS ORDERABLES Final R esult Performing Organization Address City/[facility]/ZIP Co de Phone Number [facility] [address] [place] [address] * Dexa hip/pelvis/spine* (04/26/2010) Anatomical Region Laterality Modality Dexa Other Impressions 04/26/2010 BONE DENSITOMETRY [facility] April 26, 2010 PATIENT: Pippa Moore CHART: [id number] : 1950 AGE: [age] year old SEX: female REFERRING PHYSICIAN: Connor Garcia M.D, MD PROCEDURE: Bone density scanning was performed using DEXA technology performed on a [employer]es Scanner. Reporting is completed in the form of a T-score. The T-score represents the standard deviation from peak bone mass based on a young healthy adult. Pricing Actuary performing scan: Sweetie Francis REFERENCE T-SCORES: Normal Greater than -1.0 Osteopenia -1.0 to -2.5 Osteoporosis Less than -2.5 INDICATIONS: Post-menopausal, Follow-up osteopenia, Tobacco abuse CURRENT TREATMENT: [facility] FINDINGS: Lumbar Spine L1-L3: T-score -0.7 Left Femoral Neck: T-score -0.8 Right Femoral Neck: T-score -1.0 Comparison is performed to previous DEXA performed on a Tenders[employer]es Scanner on 2003 and [facility] scanner on 2000. Electronically filed by Sweetie [...] signed Connor Garcia MD IMG DEXA ORDERABLES Edited from Last 3 Months or Most Recently Relevant to Health Maintenance Insurance [facility] MEDICARE ADVANTAGE [facility] MEDICARE ADVANTAGE Care Teams Intake Rn Relationship Specialty Start Date End Date [facility], [address] [address] PCP - General 04/07/19
--- OUTSIDE RECORDS SUMMARY | 2024-04-05 00:41 | XMS_ITS | Continuity of Care Document ---
Author Organization [facility] Address [address] [address] [place] [address] Phone Care Team Providers Care Mental Retardation Nurse Name Role Phone Nicanor Hinds MD Unavailable [...] Diagnoses Date Provider Providers Copied on Encounter [facility], [address] [address], [place], [place], [id number], [place] tel:[phone] [facility] No Information 1 Lizet Vick. [address], [id number], [place]. tel:[phone] [facility], [address] [address], [place], [place], [id number], tel:[phone] [facility] No Information 0 Lizet Vick. [address] [facility], [address], [id number], [place]. tel:[phone] [facility], [address] [address], [place], [id number], [place] tel:[phone] [facility] Personal hx of colon polypColon polypDiverticu losis of colonHemorrhoi dsDiverticulos is Of ColonPersonal History Colon PolypsBenign Neoplasm ColonBenign neoplasm of colon, unspecifiedUns pecified hemorrhoidsDiv erticulosis of large intestine without perforation or abscess without bleedingPerson al history of colonic polyps Apr-1 5-201 5 No Information Referring Provider: [place], [address] , [place], [address]. tel:[phone] [facility], [address] [address], [place], [id number], [place] tel:[phone] [facility] Polyp-intes/re ct/stom-unc BehColon Cancer ScreeningFamil y Hx/Colonic PolypsRectal Polyp/BenignBe nign Neoplasm Lg Bowel Apr-0 5-201 0 No Information Referring Provider: Garry Ponce [place] R, [address] [place], [address]. tel:[phone] [facility], [address] [address], [place], [place], [id number], tel:[phone] [facility] No Information Jul-0 7-200 5 No Information Referring Provider: Garry [place] R, [address], [place], [address]. tel:[phone] Family History Family Member Type Diagnosis Age [...]
--- OUTSIDE RECORDS SUMMARY | 2024-04-05 00:41 | XMS_ITS | Clinical Summary ---
Author Organization [employer] [facility] Address [place], [place] [address] Care Team Providers Care Student Accounts Manager Name Role Phone Nazia Morrison MD Primary Care Provider [phone] Allergies Active Allergy Reactions Criticality Noted Date Comments Unlisted Allergen (Include Detail In Comments) Rash,Edema 03/29/2023 Calcium Channel blockers, swelling in your feet and ankles Medications Medication Sig Dispensed Refills Start Date End Date Status multivit,iron,cellophane wrapping examiner als/lutein (CENTRUM SILVER ULTRA WOMEN'S ORAL) [...] Sex Assigned at Female 07/20/2020 10:05 AM CHEST PAIN COORDINATOR Gender Identity Female 07/20/2020 10:06 AM CHEST PAIN COORDINATOR Sexual Orientation Choose not to disclose 2020 10:48 AM CHEST PAIN COORDINATOR Obstetrics History Last Filed Vital Signs Vital Sign Reading Time Taken Comments Blood Pressure 130/66 03/30/2023 12:04 PM CHEST PAIN COORDINATOR Pulse 66 03/30/2023 12:04 PM CHEST PAIN COORDINATOR Temperature 36.4 C (97.6 F) 03/30/2023 12:04 PM CHEST PAIN COORDINATOR Respiratory Rate 16 03/30/2023 12:04 PM CHEST PAIN COORDINATOR Oxygen Saturation 99% 03/30/2023 12:04 PM CHEST PAIN COORDINATOR Inhaled Oxygen Concentration - - Weight 67.4 kg (148 lb 9.4 oz) 03/30/2023 7:27 A M CHEST PAIN COORDINATOR Height 165.1 cm (5' 5) 03/30/2023 7:27 AM CHEST PAIN COORDINATOR Body Mass Index 24.73 03/30/2023 7:27 AM CHEST PAIN COORDINATOR Plan of Treatment Health Maintenance Due Date [...] 75+ series) 2023 COVID-19 vaccine series ( - 2023- season) 2024 08/20/2020, 07/23/2020 Influenza for age 65+ 01/13/2024 Colonoscopy through age 75 11/30/203011/30, 11/30/2020, 11/30/2020 Medical Devices Implanted Type Area Regional Sales Representative Device Identifier Shelf Expiration Date Model / Serial / Lot Stent Uret [id number] P[employer]uflex [employer]plus - [id number] Implanted:Qty: 1 on 03/30/2023 by Jaylen Raphael MD at [employer] Right: [employer] [facility] 11/03/2025 [id number] / / [id number] Procedures Procedure Name Priority Date/Time Associated Diagnosis [...] adequate candidate for conscious sedation. The [id number] was passed through the anus and advanced [...] there are any questions, please contact the salvage cutter. Moderate Sedation: Moderate (conscious) sedation was administered [...] 9:18 AM Procedure Code(s): --- Professional --- 12530, Colonoscopy, flexible; with removalof tumor(s), polyp(s), or other lesion(s) bysnare technique 54556, 59, Colonoscopy, flexible; withbiopsy, single or multiple Diagnosis Code(s): --- Professional --- K63.5, Polyp of colon K62.1, Rectal polyp Q43.8, Other specified congenitalmalformations of intestine CPT copyright 2020 [employer]. All rights reserved. The codes documented in this report are preliminary and upon metallographic technician reviewmay be revised to meet current compliance [...] discuss on day of admission Care Teams Student Accounts Manager Relationship Specialty Start Date End Date Nazia Morrison MD [address] [place] [address] PCP - General 04/07/19
== END 2024-04-01 08:46 | disposition home or self-care (01) ==
LOC: NFLDREF 04-05 00:39
PROVIDERS: PCP Emergency Medicine; Referring Provider Emergency Medicine; Visit Provider Emergency Medicine
DX: I10 Essential (primary) hypertension (principal); Z13.6 Encounter for screening for cardiovascular disorders
CPT/HCPCS: 80048; 80061

== ENCOUNTER 2024-06-26 13:05 | Outpatient (RCR) | payer MEDICARE, SELFPAY | END 2024-12-23 23:59 | disposition home or self-care (01) | LOC: CCIC 13:05 | PROVIDERS: PCP Emergency Medicine; Visit Provider Physician Assistant | DX: C50.912 Malignant neoplasm of unspecified site of left female breast (principal); Z17.0 Estrogen receptor positive status [ER+]; Z90.13 Acquired absence of bilateral breasts and nipples; Z79.811 Long term (current) use of aromatase inhibitors; M85.80 Other specified disorders of bone density and structure, unspecified site; R07.89 Other chest pain; Z85.3 Personal history of malignant neoplasm of breast | CPT/HCPCS: 99214; G0463 ==

== ENCOUNTER 2024-09-04 09:28 | Outpatient (CLI) | payer MEDICARE, SELFPAY | END 2024-09-04 09:29 | disposition home or self-care (01) | LOC: LKVREF 09:29 | PROVIDERS: PCP Emergency Medicine; Visit Provider Emergency Medicine | DX: I10 Essential (primary) hypertension (principal) | CPT/HCPCS: 80048 ==

== ENCOUNTER 2025-02-16 12:37 | Outpatient (CLI) | payer MEDICARE, SELFPAY ==
--- NOTE | 2025-02-16 13:00 | CRLHL7_ITS ---
For Patients: As a result of the Century Cures Act, medical imaging exams and procedure reports are released immediately into your electronic medical record. You may view this report before your referring provider. If you have questions, please contact your health care provider. INDICATION: Lung cancer screening. Smoking history. TECHNIQUE: CT chest low dose without contrast. COMPARISON: 02/15/2024. FINDINGS: Lungs and pleural spaces: No suspicious nodules or infiltrates. Biapical scarring is unchanged. Emphysema present. Pleural spaces are clear. Heart and vasculature: Heart size is normal. Thoracic aorta and pulmonary artery are normal in caliber. Lymph nodes and mediastinum: No mediastinal, hilar, or axillary adenopathy. Chest wall: Unremarkable. Upper abdomen: Normal. Bones: Unremarkable for age. IMPRESSION: No suspicious lung lesions. Lung-RADS Category 2: BENIGN BEHAVIOR OR APPEARANCE. Continue annual screening, if eligible, with LDCT in 12 months. Probability of malignancy is <1%. Please note that all CT scans at this facility use dose modulation, iterative reconstruction, and/or weight-based dosing when appropriate to reduce radiation dose to as low as reasonably achievable. Dictated by Amrik Rust MD @ 02/17/2025 7:23:53 AM (Electronically Signed)
== END 2025-02-16 12:38 | disposition home or self-care (01) ==
LOC: CT 12:38
PROVIDERS: PCP Physician Assistant Medical; Visit Provider Physician Assistant Medical
DX: Z12.2 Encounter for screening for malignant neoplasm of respiratory organs (principal); Z87.891 Personal history of nicotine dependence
CPT/HCPCS: 71271

== ENCOUNTER 2025-02-23 11:33 | Outpatient (CLI) | payer MEDICARE, SELFPAY | END 2025-02-23 11:34 | disposition home or self-care (01) | LOC: LKVREF 11:34 | PROVIDERS: PCP Physician Assistant Medical; Visit Provider Physician Assistant Medical | DX: E87.1 Hypo-osmolality and hyponatremia (principal) | CPT/HCPCS: 80053 ==

== ENCOUNTER 2025-04-03 19:28 | Emergency (ER) | payer MEDICARE, SELFPAY ==
--- OUTSIDE RECORDS SUMMARY | 2020-09-10 02:41 | XMS_ITS | Continuity of Care Document ---
Author Organization [facility] Address [address] [address] [place] [address] Phone Care Team Providers Care Yardage Control Operator Name Role Phone Nicanor Hinds MD Unavailable Unavailable Allergies, Adverse Reactions, Alerts Substance Reaction Status Criticality No Known allergies Medications Medication Instructions Dosage Effective Dates (start - stop) Status Comments ondansetron 4 mg disintegrating tablet take 1 by Oral route every 8 hours prn 1 - Active Evista 60 mg Tab Take one tablet by mouth daily - Active HYZAAR (unknown strength) Take 1 tablet by mouth daily Not Available - Active Procedures Procedure Date Colonoscopy Flex; W/bx 1/mx Level Iv-surg Path Gross/micro 15 Colonoscopy Flex; W/bx 1/mx Level Iv-surg Path Gross/micro 10 Advance Directives Directive Yes / No Effective Date File Name No Information Encounters Encounter Description Practice Location Reason(s) For Visit Diagnoses Date Provider Providers Copied on Encounter [facility], [address] [address], [place], [place], [id number], [place] tel:[phone] [facility] No Information 1 Lizet Vick. [address], [id number], [place]. tel:[phone] [facility], [address] [address], [place], [place], [id number], tel:[phone] [facility] No Information 0 Lizet Vick. [address] [facility], [address], [id number], [place]. tel:[phone] [facility], [address] [address], [place], [id number], [place] tel:[phone] [facility] Personal hx of colon polypColon polypDiverticu losis of colonHemorrhoi dsDiverticulos is Of ColonPersonal History Colon PolypsBenign Neoplasm ColonBenign neoplasm of colon, unspecifiedUns pecified hemorrhoidsDiv erticulosis of large intestine without perforation or abscess without bleedingPerson al history of colonic polyps Apr-1 5-201 5 No Information Referring Provider: [place], [address] , [place], [address]. tel:[phone] [facility] [place], [address] [address], [place], [id number], [place] tel:[phone] [facility] Polyp-intes/re ct/stom-unc BehColon Cancer ScreeningFamil y Hx/Colonic PolypsRectal Polyp/BenignBe nign Neoplasm Lg Bowel Apr-0 5-201 0 No Information Referring Provider: [place] R, [address] [place], [address]. tel:[phone] [facility] [place], [address] [address], [place], [id number], tel:[phone] [facility] No Information Jul-0 7-200 5 No Information Referring Provider: [place] R, [address], [place], [address]. tel:[phone] Family History Family Member Type Diagnosis Age At Onset Mother Problem (finding) Colon polyps Father Problem (finding) Colon polyps Father Problem (finding) Daughter Problem (finding) Alive and well Mother Problem (finding) Alive and well Son Problem (finding) Alive and well Immunizations Vaccine Date Status Comments influenza, high dose seasona l, preservative-free administered Note: [facility] bi-direct ional interface ; Source: Other Registry zoster vaccine recombinant administered N ote: [facility] bi-directional interface ; Source: Other Registry zoster vaccine recombinant administered N ote: [facility] bi-directional interface ; Source: Other Registry influenza, high dose seasona l, preservative-free administered Note: [facility] bi-direct ional interface ; Source: Other Registry Pneumovax 23 administered Note: [facility] bi-d irectional interface ; Source: Other Registry tetanus toxoid, reduced diphtheria toxoid, and acellular pertussis vaccine, adsorbed administered Note: [facility] bi-direct ional interface ; Source: Other Registry influenza, high dose seasona l, preservative-free administered Note: [facility] bi-direct ional interface ; Source: Other Registry Prevnar 13 administered Note: [facility] bi-d irectional interface ; Source: Other Registry Influenza, seasonal, injectable administe red Note: [facility] bi- directional interface ; Source: Other Registry Influenza, seasonal, injectable administe red Note: [facility] bi- directional interface ; Source: Other Registry Influenza, seasonal, injectable administe red Note: [facility] bi- directional interface ; Source: Other Registry tetanus toxoid, reduced diphtheria toxoid, and acellular pertussis vaccine, adsorbed administered Note: [facility] bi-direct ional interface ; Source: Other Registry Influenza, seasonal, injectable administe red Note: [facility] bi- directional interface ; Source: Other Registry Influenza, seasonal, injectable administe red Note: [facility] bi- directional interface ; Source: Other Registry Influenza, seasonal, injectable administe red Note: [facility] bi- directional interface ; Source: Other Registry Influenza, seasonal, injectable administe red Note: [facility] bi- directional interface ; Source: Other Registry Influenza, seasonal, injectable administe red Note: [facility] bi- directional interface ; Source: Other Registry Payers Payer name Insurance type Covered libertarian ID Authoriza tion(s) No Information Social History Type Description Quantity Date Captured Comments Sex Female Smoking Status No Information Chief Complaint And Reason For Visit No Information Reason For Referral Reason For Referral No Information Plan Of Treatment Date Type Action Status Referral Ordered: Colonoscopy Appointment date/timeframe: 08/27/2019 ordered History Of Present Illness Encounter Date Complaint History Of Prese nt Illness No Information Functional Status Date Functional Assessmen t No Information Instructions Date Instruction Additional Infor rosie Colon Cancer Prevention Related to Colon polyp Colon Polyps Related to Colon polyp Diverticulosis/Diverticulitis Re lated to Colon polyp Hemorrhoids Related to Hemor rhoids High Fiber Diet Related to Hemor rhoids Assessments Type Assessment Date No Information Patient Care Teams Name Effective Dates (start - stop) Status Members No Information
--- OUTSIDE RECORDS SUMMARY | 2020-09-10 02:41 | XMS_ITS | Continuity of Care Document ---
Author Organization [facility] Address [address] [address] [place] [address] Phone Care Team Providers Care Field Tech Name Role Phone Nicanor Hinds MD Unavailable [...] Diagnoses Date Provider Providers Copied on Encounter [facility], [address] [address], [place], [place], [id number], [place] tel:[phone] [facility] No Information 1 Lizet Vick. [address], [id number], [place]. tel:[phone] [facility], [address] [address], [place], [place], [address], tel:[phone] [facility] No Information [address] [facility], [address], [id number], [place]. tel:[phone] [facility] [place], [address] [address], [place], [id number], [place] tel:[phone] [facility] Personal hx of colon polypColon polypDiverticu losis of colonHemorrhoi dsDiverticulos is Of ColonPersonal History Colon PolypsBenign Neoplasm ColonBenign neoplasm of colon, unspecifiedUns pecified hemorrhoidsDiv erticulosis of large intestine without perforation or abscess without bleedingPerson al history of colonic polyps Apr-1 5-201 5 No Information Referring Provider: [place], [address] , [place], [address]. tel:[phone] [facility] [place], [address] [address], [place], [id number], [place] tel:[phone] [facility] Polyp-intes/re ct/stom-unc BehColon Cancer ScreeningFamil y Hx/Colonic PolypsRectal Polyp/BenignBe nign Neoplasm Lg Bowel Apr-0 5-201 0 No Information Referring Provider: [place] R, [address] [place], [address]. tel:[phone] [facility] [place], [address] [address], [place], [id number], tel:[phone] [facility] No Information Jul-0 7-200 5 No Information Referring Provider: [place] R, [address], [place], [address]. tel:[phone] Family History Family Member Type Diagnosis Age [...] Registry Payers Payer name Insurance type Covered green party ID Authoriza tion(s) No Information Social History [...]
[2025-04-03 19:41] VITALS: BP 110/73; PULSE 81; RESP 16; TEMP 35.9; O2SAT 98; BMI 23.8
--- NOTE | 2025-04-03 20:01 | ED.GENADULT ---
HPI - General Adult General Chief complaint: Arrhythmia/Palpitations <Christiano Rudolph MD - Last Filed: 04/03/25 23:04> Stated complaint: Low blood pressure <Christiano Rudolph MD - Last Filed: 04/03/25 23:04> Time Seen by Provider: 04/03/25 19:39 <Christiano Rudolph MD - Last Filed: 04/03/25 23:04> History of Present Illness HPI narrative: Pt here for symptomatic hypotensive readings at home. Readings have been 64/48 -89/59, with lightheadedness . Did have 1 episode of syncope yesterday ( denies head injury). Dx with Afib in clinic today. Recent changes to BP meds. Confusion regarding new torsemide rx: discrepancy in how soda tester ordered med: 5mg daily vs 10mg BID ( handwritten instructions) 74-year-old woman presenting to the emergency department with her daughter with concern of low blood pressure readings. Does have a history of poorly controlled hypertension and chronic hyponatremia. Seen by Nephrology 3 days ago with the following medication changes made -- Was discontinued on metoprolol and initiated on carvedilol. Discontinued chlorthalidone which took briefly (had also prior been on hydrochlorothiazide) Began torsemide. There is some question regarding what dosing she is actually to take in review of records. Ultimately she did take 10 mg twice a day over yesterday and today. Continues to take her irbesartan 300 mg daily. Yesterday prior to initiating these medication changes in the morning though she did faint. She had been up and around and was standing in the kitchen and suddenly passed out. She recalls feeling dizzy. She does not believe she hit her head. No neck or back pain described. Underlying history of cerebral aneurysm with embolization. Did inform her daughter until 9:00 p.m. yesterday of a fall earlier in the day. Subsequently yesterday went in to be seen in primary care clinic. Was found to be in atrial fibrillation and initiated on Eliquis. Was discontinued from aspirin. Otherwise daughter and Pippa admit that she has been more confused over the last number of weeks and having some difficulty with recall as well more recently. Daughter feels that is worse over the last 48 hours. Was trying to drive herself home and seemed to get lost, even drove into oncoming traffic, is one event as mentioned. Today this evening than noting that blood pressures were rather low measured at 64/48, 89/59 and was having some dizziness, lightheadedness. She is also a little thirsty. It was this hypotension the prompted the visit to the emergency department tonight. They tried changing batteries in her blood pressure machine. Daughter believes that this machine is usually accurate. <Christiano Rudolph MD - Last Filed: 04/03/25 23:04> Related Data Home medications: Home Medications ?Medication ?Instructions ?Recorded ?Confirmed [id number] 8 mg-folic 400 1 tab PO QDAY 12/22/21 04/03/25 mcg-K 50 mcg-lutein 300 mcg tablet (Centrum Silver Women) acetaminophen 500 mg tablet 1,000 mg PO Q6H PRN 02/10/22 04/03/25 (Tylenol Extra Strength) calcium 600 mg (as 2 cap PO DAILY 02/10/22 04/03/25 carbonate)-vitamin D3 12.5 mcg (500 unit) capsule (Calcium with Vit D3) carvedilol 25 mg tablet (Coreg) 25 mg PO BID 03/31/25 04/03/25 torsemide 5 mg tablet 10 mg PO BID 04/03/25 04/03/25 Previous Rx's ?Medication ?Instructions ?Recorded anastrozole 1 mg tablet 1 mg PO QDAY #90 tabs 12/29/24 fexofenadine 180 mg tablet 180 mg PO Q24H #90 tabs 02/23/25 (Vidya Allergy) irbesartan 300 mg tablet 300 mg PO QDAY #90 tabs 02/23/25 omeprazole 20 mg capsule,delayed 20 mg PO DAILY #90 caps 02/23/25 release apixaban 2.5 mg tablet (Eliquis) 2.5 mg PO BID #60 tabs 04/03/25 <Christiano Rudolph MD - Last Filed: 04/03/25 23:04> Allergies/adverse reactions: Allergies Allergy/AdvReac Type Severity Reaction Status Date / Time amlodipine Allergy Verified 04/03/25 19:35 Calcium Channel Blocking Allergy Verified 04/03/25 19:35 Agent Dilt <Christiano Rudolph MD - Last Filed: 04/03/25 23:04> Review of Systems Status of ROS: Reports: 6 or more systems reviewed and unremarkable except as noted in History and below <Christiano Rudolph MD - Last Filed: 04/03/25 23:04> [facility] Medical History: Medical History Hx of colonic polyp ?Z86.0100 - Personal history of colon polyps, unspecified (ICD-10) Hydronephrosis ?N13.30 - Unspecified hydronephrosis (ICD-10) Seasonal allergies ?J30.2 - Other seasonal allergic rhinitis (ICD-10) Fall ?W19.XXXA - Unspecified fall, initial encounter (ICD-10) Microscopic hematuria ?R31.29 - Other microscopic hematuria (ICD-10) Aspirin long-term use ?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 (ICD-10) Alopecia areata ?L63.9 - Alopecia areata, unspecified (ICD-10) <Christiano Rudolph MD - Last Filed: 04/03/25 23:04> Surgical History: Surgical History Hx of tubal ligation ?Z98.51 - Tubal ligation status (ICD-10) Hx of cerebral aneurysm repair (05/22/19) ?Z98.890 - Other specified postprocedural states (ICD-10) ?Z86.79 - Personal history of other diseases of the circulatory system (ICD-10) History of tonsillectomy ?Z90.89 - Acquired absence of other organs (ICD-10) History of removal of implants of both breasts ?Z98.86 - Personal history of breast implant removal (ICD-10) History of mastectomy ?Z90.10 - Acquired absence of unspecified breast and nipple (ICD-10) History of colonoscopy (2020) ?Z98.890 - Other specified postprocedural states (ICD-10) <Christiano Rudolph MD - Last Filed: 04/03/25 23:04> Family History: Family History Mother High blood pressure, Onset Age: 30 Father Parkinson disease Maternal Grandmother Stroke Maternal Grandfather Stroke <Christiano Rudolph MD - Last Filed: 04/03/25 23:04> Social History: Social History Narrative: Former smoker 2018 Resides independently- [facility], with her dog > 20 years ago 2 adults kids ( Daughter- Lyla) Drives, manages her own affairs. Smoking Status: Former smoker <Christiano Rudolph MD - Last Filed: 04/03/25 23:04> Exam Narrative: Exam Narrative: Very pleasant. Energetic. At time seems a little confused over the dates timing of events. She is carefully groomed, makeup. Head is atraumatic. Neck is supple. Back with upper kyphosis is nontender. Lungs are clear. Heart in irregularly irregular rhythm without murmur or rub. No JVDs appreciated. Abdomen is a little protuberant. Soft. Extremities are without edema. She is moving all extremities without difficulty. Cranial nerves 2-12 are intact. Pupils are 3 mm and equal. <Christiano Rudolph MD - Last Filed: 04/03/25 23:04> Const: Vital Signs, click to edit/add: Vital Signs - 24 hr 04/03/25 19:41 04/03/25 20:02 Temperature 96.6 F L Pulse Rate [Pulse Oximeter] 81 Pulse Rate [orthos tatic lying Right] 75 Pulse Rate [orthos tatic sitting Righ t] 90 Pulse Rate [orthos tatic standing Rig ht] 79 Respiratory Rate 16 Blood Pressure [Ri ght Upper Arm] 110/73 Blood Pressure [or thostatic lying Ri ght Arm] 112/87 Blood Pressure [or thostatic sitting Right Arm] 114/86 Blood Pressure [or thostatic standing Right Arm] 107/72 Pulse Oximetry 98 Oxygen Delivery Me thod Room Air <Christiano Rudolph MD - Last Filed: 04/03/25 23:04> Vital Signs, click to edit/add: Vital Signs - 24 hr 04/03/25 19:41 04/03/25 20:02 Temperature 96.6 F L Pulse Rate [Pulse Oximeter] 81 Pulse Rate [orthos tatic lying Right] 75 Pulse Rate [orthos tatic sitting Righ t] 90 Pulse Rate [orthos tatic standing Rig ht] 79 Respiratory Rate 16 Blood Pressure [Ri ght Upper Arm] 110/73 Blood Pressure [or thostatic lying Ri ght Arm] 112/87 Blood Pressure [or thostatic sitting Right Arm] 114/86 Blood Pressure [or thostatic standing Right Arm] 107/72 Pulse Oximetry 98 Oxygen Delivery Me thod Room Air <Kenny Melendez MD - Last Filed: 04/03/25 22:35> Documenting provider has reviewed patient's vital signs: yes <Christiano Rudolph MD - Last Filed: 04/03/25 23:04> Course Reevaluation(s) Time of Reevaluation #1: 22:34 <Kenny Melendez MD - Last Filed: 04/03/25 22:35> Reevaluation #1: Sign-out from Dr. Miranda pending urinalysis. This does not demonstrate evidence of infection. Patient does have slightly elevated BNP, mild hypokalemia hyponatremia although hyponatremia is improving. Patient is to decrease her dose of torsemide which should improve her hypo kalemia. <Kenny Melendez MD - Last Filed: 04/03/25 22:35> Vital Signs Vital signs: Initial Vital Signs Temperature 96.6 F L 04/03/25 19:41 Temperature Source Temporal Artery Scan 04/03/25 19:41 Pulse Rate 81 04/03/25 19:41 Pulse Rhythm Irregular 04/03/25 19:41 Respiratory Rate 16 04/03/25 19:41 Blood Pressure 110/73 04/03/25 19:41 Blood Pressure Mean 85 04/03/25 19:41 Blood Pressure Position Sitting 04/03/25 19:41 Pulse Oximetry 98 04/03/25 19:41 Oxygen Delivery Method Room Air 04/03/25 19:41 Vital Signs Temperature 96.6 F L 04/03/25 19:41 Pulse Rate 81 04/03/25 19:41 Respiratory Rate 16 04/03/25 19:41 Blood Pressure 110/73 04/03/25 19:41 Pulse Oximetry 98 04/03/25 19:41 Oxygen Delivery Method Room Air 04/03/25 19:41 Temperature 96.6 F L 04/03/25 19:41 Pulse Rate 75 04/03/25 20:02 Respiratory Rate 16 04/03/25 19:41 Blood Pressure 112/87 04/03/25 20:02 Pulse Oximetry 98 04/03/25 19:41 Oxygen Delivery Method Room Air 04/03/25 19:41 <Christiano Rudolph MD - Last Filed: 04/03/25 23:04> Initial Vital Signs Temperature 96.6 F L 04/03/25 19:41 Temperature Source Temporal Artery Scan 04/03/25 19:41 Pulse Rate 81 04/03/25 19:41 Pulse Rhythm Irregular 04/03/25 19:41 Respiratory Rate 16 04/03/25 19:41 Blood Pressure 110/73 04/03/25 19:41 Blood Pressure Mean 85 04/03/25 19:41 Blood Pressure Position Sitting 04/03/25 19:41 Pulse Oximetry 98 04/03/25 19:41 Oxygen Delivery Method Room Air 04/03/25 19:41 Vital Signs Temperature 96.6 F L 04/03/25 19:41 Pulse Rate 81 04/03/25 19:41 Respiratory Rate 16 04/03/25 19:41 Blood Pressure 110/73 04/03/25 19:41 Pulse Oximetry 98 04/03/25 19:41 Oxygen Delivery Method Room Air 04/03/25 19:41 Temperature 96.6 F L 04/03/25 19:41 Pulse Rate 75 04/03/25 20:02 Respiratory Rate 16 04/03/25 19:41 Blood Pressure 112/87 04/03/25 20:02 Pulse Oximetry 98 04/03/25 19:41 Oxygen Delivery Method Room Air 04/03/25 19:41 <Kenny Melendez MD - Last Filed: 04/03/25 22:35> Medical Decision Making MDM Narrative Medical decision making narrative: Quite the series of events in the last few days. Presumably syncope was related to atrial fibrillation of uncertain duration. Orthostatic hypotension? Has however had electrolyte abnormalities particularly with hyponatremia. Perhaps has been experiencing some cerebral hypoperfusion related to atrial fibrillation contributing to some of this confusion, syncope. Will need head imaging given recent fall. Not reporting headache or having symptoms I think that would point head bleed but it would be prudent to check. Dizziness also probably likely related to atrial fibrillation plus or minus some degree of dehydration now as well. Head CT independently reviewed by me is without acute abnormality. No bleed apparent. Postoperative changes noted. INDICATION: Fall. Memory loss. TECHNIQUE: CT of the head without contrast. Coronal and sagittal reformats are included. COMPARISON: Brain MRI from 04/04/2019. FINDINGS: No acute intracranial hemorrhage. No mass effect or midline shift. No hydrocephalus or extra-axial collections. Patchy white matter hypoattenuation, typical for chronic microvascular ischemic change. Mild generalized parenchymal volume loss. Aneurysm embolization changes anterior cerebral artery and MCA bifurcation regions. No acute osseous abnormalities. Mastoid air cells and paranasal sinuses are clear. Normal soft tissues. IMPRESSION: IMPRESSION: 1. No acute intracranial abnormalities. Please note that all CT scans at this facility use dose modulation, iterative reconstruction, and/or weight-based dosing when appropriate to reduce radiation dose to as low as reasonably achievable. Dictated by Gelacio Reese MD @ 04/03/2025 8:31:08 PM Orthostatics here good and Pippa is asymptomatic. She has urinated already twice in the emergency department. Labs are notable for improved sodium to 132 but now decreased potassium at 3.3; presumably related to diuretic With regard to torsemide is taking 4 times usual starting dose for hypertension. I think I would return to 5 mg daily torsemide Has been ambulating to and from the bathroom without difficulty in the emergency department. Has not demonstrated unusually low blood pressures. Actually look quite well controlled. Pulse in the upper 80s with ambulation. ProBNP finally resulted at 2840. I do not have prior for comparison. They report that they are anticipating getting echocardiogram outpatient. Along with renal ultrasound. Pending yet is urinalysis. I wonder if some of this confusion and likely this dizziness and syncopal event, were related to your atrial fibrillation. Blood pressure is overall dramatically improved with this new regimen. I think you are taking too much torsemide at this time and I would take just 5 mg once daily in the morning. You have close follow-up. Would recheck labs, follow-up in a week. You may not need follow-up in 3 days for your ?renal labs if everything they need was already done here today (see printout of labs here on discharge) <Christiano Rudolph MD - Last Filed: 04/03/25 23:04> Medical Records Medical records reviewed: Yes I reviewed the patient's medical records <Christiano Rudolph MD - Last Filed: 04/03/25 23:04> Lab Data Lab results reviewed: Yes I reviewed the patient's lab results <Christiano Rudolph MD - Last Filed: 04/03/25 23:04> Labs: Lab Results 04/03/25 04/03/25 04/03/25 Range/Units 20:41 21:06 22:08 WBC 6.97 (4.50-11.00) K/uL RBC 4.21 (4.00-5.20) m/uL Hgb 13.1 (12.0-16.0) gm/dL Hct 41.1 (33.0-51.0) % MCV 98 (80-100) fL MCH 31 (26-34) pg MCHC 32 (32-36) gm/dL RDW Coeff of Lana 11.9 (11.5-15.5) % Plt Count 264 (140-440) K/uL Neut % (Auto) 64.0 (42.0-72.0) % Lymph % (Auto) 26.1 (20-44) % [place] % (Auto) 6.7 (0.0-11.0) % Eos % (Auto) 2.6 (0.0-7.0) % Baso % (Auto) 0.3 (0.0-3.0) % Neut # (Auto) 4.46 (1.7-7.0) K/uL Lymph # (Auto) 1.82 (0.90-2.90) K/uL [place] # (Auto) 0.50 (0.00-0.90) K/UL Eos # (Auto) 0.18 (0.00-0.50) K/uL Baso # (Auto) 0.02 (0.00-0.30) K/uL Abs Immat Gran (auto) 0.02 (0.00-0.30) K/uL Imm/Tot Granulo (auto) 0.3 % Sodium 132 L (135-149) mmol/L Potassium 3.3 L (3.6-5.1) mmol/L Chloride 92 L (96-114) mmol/L Carbon Dioxide 30 (20-32) mmol/L Anion Gap 10 (7-15) mEq/L BUN 27 (7-30) mg/dL Creatinine 1.0 (0.5-1.5) mg/dL Estimated Creat Clear 43.07 Estimated GFR 58 ml/min Glucose 156 H (60-115) mg/dL Calcium 9.1 (8.4-10.6) mg/dL Magnesium 1.9 (1.5-2.6) mg/dL NT-Pro-B Natriuret Pep 2840 H (See Note) pg/mL Urine Color Yellow (Yellow) Urine Appearance Clear (Clear) Urine pH 5.5 (5.0-8.5) Ur Specific [place] <= 1.005 (1.000-1.030) Urine Protein Negative (Negative) Urine Glucose (UA) Negative (Negative) Urine Ketones Negative (Negative) Urine Blood Trace-lysed A (Negative) Urine Nitrite Negative (Negative) Urine Bilirubin Negative (Negative) Urine Urobilinogen 0.2 (0.2-1.0) Ur Leukocyte Esterase Negative (Negative) Urine RBC 0-2 (0-2) Urine WBC 0-2 (0-5) Ur Squamous Epith Cells None (None-Few) Urine Bacteria None (None) Lab Acknowledgement Test Added <Christiano Rudolph MD - Last Filed: 04/03/25 23:04> Lab Results 04/03/25 04/03/25 04/03/25 Range/Units 20:41 21:06 22:08 WBC 6.97 (4.50-11.00) K/uL RBC 4.21 (4.00-5.20) m/uL Hgb 13.1 (12.0-16.0) gm/dL Hct 41.1 (33.0-51.0) % MCV 98 (80-100) fL MCH 31 (26-34) pg MCHC 32 (32-36) gm/dL RDW Coeff of Lana 11.9 (11.5-15.5) % Plt Count 264 (140-440) K/uL Neut % (Auto) 64.0 (42.0-72.0) % Lymph % (Auto) 26.1 (20-44) % [place] % (Auto) 6.7 (0.0-11.0) % Eos % (Auto) 2.6 (0.0-7.0) % Baso % (Auto) 0.3 (0.0-3.0) % Neut # (Auto) 4.46 (1.7-7.0) K/uL Lymph # (Auto) 1.82 (0.90-2.90) K/uL [place] # (Auto) 0.50 (0.00-0.90) K/UL Eos # (Auto) 0.18 (0.00-0.50) K/uL Baso # (Auto) 0.02 (0.00-0.30) K/uL Abs Immat Gran (auto) 0.02 (0.00-0.30) K/uL Imm/Tot Granulo (auto) 0.3 % Sodium 132 L (135-149) mmol/L Potassium 3.3 L (3.6-5.1) mmol/L Chloride 92 L (96-114) mmol/L Carbon Dioxide 30 (20-32) mmol/L Anion Gap 10 (7-15) mEq/L BUN 27 (7-30) mg/dL Creatinine 1.0 (0.5-1.5) mg/dL Estimated Creat Clear 43.07 Estimated GFR 58 ml/min Glucose 156 H (60-115) mg/dL Calcium 9.1 (8.4-10.6) mg/dL Magnesium 1.9 (1.5-2.6) mg/dL NT-Pro-B Natriuret Pep 2840 H (See Note) pg/mL Urine Color Yellow (Yellow) Urine Appearance Clear (Clear) Urine pH 5.5 (5.0-8.5) Ur Specific [place] <= 1.005 (1.000-1.030) Urine Protein Negative (Negative) Urine Glucose (UA) Negative (Negative) Urine Ketones Negative (Negative) Urine Blood Trace-lysed A (Negative) Urine Nitrite Negative (Negative) Urine Bilirubin Negative (Negative) Urine Urobilinogen 0.2 (0.2-1.0) Ur Leukocyte Esterase Negative (Negative) Urine RBC 0-2 (0-2) Urine WBC 0-2 (0-5) Ur Squamous Epith Cells None (None-Few) Urine Bacteria None (None) Lab Acknowledgement Test Added <Kenny Melendez MD - Last Filed: 04/03/25 22:35> ECG Data Attestation: I personally reviewed and interpreted this ECG as follows: (Atrial fibrillation in the rate of 84) <Christiano Rudolph MD - Last Filed: 04/03/25 23:04> Discharge Plan Discharge Clinical Impression: Atrial fibrillation, Diuretic-induced hypokalemia <Christiano Rudolph MD - Last Filed: 04/03/25 23:04> Patient Disposition: Home w/ Parent or Adult <Christiano Rudolph MD - Last Filed: 04/03/25 23:04> Condition: Improved <Christiano Rudolph MD - Last Filed: 04/03/25 23:04> Activity Level: No Restrictions <Christiano Rudolph MD - Last Filed: 04/03/25 23:04> No Restrictions <Kenny Melendez MD - Last Filed: 04/03/25 22:35> Discharge Diet: Regular <Christiano Rudolph MD - Last Filed: 04/03/25 23:04> Regular <Kenny Melendez MD - Last Filed: 04/03/25 22:35> Prescriptions: No Action irbesartan 300 mg tablet 300 mg PO QDAY Qty: 90 3RF Rx Instructions: stop losartan fexofenadine [Vidya Allergy] 180 mg tablet 180 mg PO Q24H Qty: 90 3RF omeprazole 20 mg capsule,delayed release(DR/EC) 20 mg PO DAILY Qty: 90 3RF carvedilol [Coreg] 25 mg tablet 25 mg PO BID Rx Instructions: must administer with a meal/food torsemide 5 mg tablet 10 mg PO BID Eliquis 2.5 mg tablet 2.5 mg PO BID Qty: 60 5RF Centrum Silver Women 8 mg iron-400 mcg-300 mcg tablet 1 tab PO QDAY calcium carbonate-vitamin D3 [Calcium 600 with Vitamin D3] 600 mg-12.5 mcg (500 unit) capsule 2 cap PO DAILY acetaminophen [Tylenol Extra Strength] 500 mg tablet 1,000 mg PO Q6H PRN anastrozole 1 mg tablet 1 mg PO QDAY Qty: 90 3RF <Christiano Rudolph MD - Last Filed: 04/03/25 23:04> Follow Up/Referrals: Keyana Ellington PA-C [Primary Care Provider, Family Practice] <Christiano Rudolph MD - Last Filed: 04/03/25 23:04> Stand Alone Forms: MyHealth Info Instructions <Christiano Rudolph MD - Last Filed: 04/03/25 23:04>
[2025-04-03 20:02] VITALS: BP 107/72; BP 112/87; BP 114/86; PULSE 75; PULSE 79; PULSE 90
--- NOTE | 2025-04-03 20:14 | CRLHL7_ITS ---
For Patients: As a result of the Century Cures Act, medical imaging exams and procedure reports are released immediately into your electronic medical record. You may view this report before your referring provider. If you have questions, please contact your health care provider. INDICATION: Fall. Memory loss. TECHNIQUE: CT of the head without contrast. Coronal and sagittal reformats are included. COMPARISON: Brain MRI from 04/04/2019. FINDINGS: No acute intracranial hemorrhage. No mass effect or midline shift. No hydrocephalus or extra-axial collections. Patchy white matter hypoattenuation, typical for chronic microvascular ischemic change. Mild generalized parenchymal volume loss. Aneurysm embolization changes anterior cerebral artery and MCA bifurcation regions. No acute osseous abnormalities. Mastoid air cells and paranasal sinuses are clear. Normal soft tissues. IMPRESSION: IMPRESSION: 1. No acute intracranial abnormalities. Please note that all CT scans at this facility use dose modulation, iterative reconstruction, and/or weight-based dosing when appropriate to reduce radiation dose to as low as reasonably achievable. Dictated by Gelacio Reese MD @ 04/03/2025 8:31:08 PM (Electronically Signed)
[2025-04-03 20:47] LABS: Hematocrit* 41.1 % (33.0-51.0); Hemoglobin* 13.1 gm/dL (12.0-16.0); Immature Granulocytes Abs Auto 0.02 K/uL (0.00-0.30); Immature Granulocytes Pct Auto 0.3 %; Lymphocytes Absolute Auto 1.82 K/uL (0.90-2.90); Mean Corpuscular HGB Conc 32 gm/dL (32-36); Mean Corpuscular Hemoglobin 31 pg (26-34); Mean Corpuscular Volume 98 fL (80-100); RDW Coefficient of Variation % 11.9 % (11.5-15.5); Red Blood Count* 4.21 m/uL (4.00-5.20); White Blood Count* 6.97 K/uL (4.50-11.00)
[2025-04-03 20:49] LABS: Slide Review Reflex No
[2025-04-03 20:59] LABS: Chloride* 92 mmol/L (96-114); Potassium* 3.3 mmol/L (3.6-5.1); Sodium* 132 mmol/L (135-149)
[2025-04-03 21:02] LABS: Anion Gap 10 mEq/L (7-15); Blood Urea Nitrogen* 27 mg/dL (7-30); Calcium* 9.1 mg/dL (8.4-10.6); Carbon Dioxide* 30 mmol/L (20-32); Creatinine* 1.0 mg/dL (0.5-1.5); Est. Creatinine Clearance* 43.07; Estimated Glomerular Filt Rate 58 ml/min; Glucose* 156 mg/dL (60-115)
[2025-04-03 21:58] LABS: NT Pro B Type NatriureticPept* 2840 pg/mL (See Note)
[2025-04-03 22:15] LABS: Appearance Urine Clear (Clear)
== END 2025-04-03 23:03 | disposition home or self-care (01) ==
PROVIDERS: Family Medicine; Emergency Provider Family Medicine; PCP Physician Assistant Medical
DX: I48.91 Unspecified atrial fibrillation (principal); E87.6 Hypokalemia; E87.1 Hypo-osmolality and hyponatremia; Z79.01 Long term (current) use of anticoagulants; Z79.899 Other long term (current) drug therapy
CPT/HCPCS: 36415; 70450; 80048; 81001; 83735; 83880; 84443; 85025; 93005; 99284; 99285

== ENCOUNTER 2025-04-06 08:54 | Outpatient (CLI) | payer MEDICARE, SELFPAY ==
--- NOTE | 2025-04-06 09:15 | CRLHL7_ITS ---
For Patients: As a result of the Century Cures Act, medical imaging exams and procedure reports are released immediately into your electronic medical record. You may view this report before your referring provider. If you have questions, please contact your health care provider. INDICATION: Essential primary hypertension TECHNIQUE: Grayscale, color Doppler and spectral Doppler evaluation of the kidneys and renal arteries performed bilaterally. Limited exam, patient very light headed and uncomfortable during exam (lots of moving and changing positions) COMPARISON: None available FINDINGS: BILATERAL RENAL ARTERY DUPLEX ULTRASOUND ABDOMINAL AORTA: Peak systolic velocity = 72 cm/s. No aortic aneurysm. RIGHT KIDNEY: 11.6 cm in length. Hydronephrosis is present with the right renal pelvis measuring 1.8 cm. Peak systolic velocity = 165 cm/second Renal artery to aortic peak systolic velocity ratio = 2.3 Resistive indices: 0.7 Renal vein = patent Simple right renal cyst measures 3.2 x 2.4 x 1.6 cm. LEFT KIDNEY: 9.7 cm in length. There is no hydronephrosis. Peak systolic velocity = 158 cm/second Renal artery to aortic peak systolic velocity ratio = 2.2 Resistive indices: 0.7 Renal vein = patent IMPRESSION: No evidence of significant renal artery stenosis. Right hydronephrosis with known reflux. Dictated by Christiano Stewart MD @ 04/06/2025 2:05:15 PM (Electronically Signed)
== END 2025-04-06 08:55 | disposition home or self-care (01) ==
PROVIDERS: PCP Physician Assistant Medical; Visit Provider Internal Medicine Nephrology
DX: I12.9 Hypertensive chronic kidney disease with stage 1 through stage 4 chronic kidney disease, or unspecified chronic kidney disease (principal); N13.30 Unspecified hydronephrosis; N18.30 Chronic kidney disease, stage 3 unspecified; R31.29 Other microscopic hematuria
CPT/HCPCS: 76775; 82043; 82088; 82533; 82570; 83835; 84244; 84443; 87086; 93975

== ENCOUNTER 2025-04-15 14:41 | Outpatient (CLI) | payer MEDICARE, SELFPAY | END 2025-04-15 14:42 | disposition home or self-care (01) | PROVIDERS: PCP Physician Assistant Medical; Visit Provider Physician Assistant Medical | DX: I48.91 Unspecified atrial fibrillation (principal) | CPT/HCPCS: 82607; 83735; 83880 ==

== ENCOUNTER 2025-04-20 13:34 | Outpatient (CLI) | payer MEDICARE, SELFPAY | END 2025-04-20 13:35 | disposition home or self-care (01) | LOC: RAD 13:35 | PROVIDERS: PCP Physician Assistant Medical; Visit Provider Family Medicine | DX: I48.91 Unspecified atrial fibrillation (principal); I34.0 Nonrheumatic mitral (valve) insufficiency; I07.1 Rheumatic tricuspid insufficiency | CPT/HCPCS: 93306 ==

== ENCOUNTER 2025-04-27 10:07 | Outpatient (CLI) | payer MEDICARE, SELFPAY ==
--- NOTE | 2025-04-27 10:15 | CRLHL7_ITS ---
For Patients: As a result of the Century Cures Act, medical imaging exams and procedure reports are released immediately into your electronic medical record. You may view this report before your referring provider. If you have questions, please contact your health care provider. INDICATION: Headaches, dizziness, history of aneurysm repair and atrial fibrillation. TECHNIQUE: Multisequence multiplanar MRI of the brain prior to and following administration of 13 cc Dotarem gadolinium-based intravenous contrast. COMPARISON: MRI brain dated 04/04/2019. FINDINGS: No evidence of acute ischemia. Slight increase in scattered T2 prolongation within the supratentorial white matter typical of chronic small vessel ischemic changes. No focus of abnormal enhancement. Punctate foci of susceptibility artifact in the right frontal, left parietal, and left temporal lobes. Susceptibility artifact emanating from anterior communicating and right MCA bifurcation aneurysm coils. 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 Slight progression of mild diffuse parenchymal volume loss. The ventricles are proportional to the sulci. Normal calvarial bone marrow signal intensity. Bilateral pseudophakia. The paranasal sinuses and mastoid air cells are predominantly clear. IMPRESSION: 1. No acute intracranial abnormality or focus of abnormal enhancement. 2. Slight progression of mild diffuse parenchymal volume loss and chronic small vessel ischemic changes. 3. Stable chronic infarct within the left paramedian cerebellum. 4. Punctate foci of susceptibility artifact within the right frontal, left parietal, and left temporal lobes, consistent with sequela of prior microhemorrhages. 5. Susceptibility artifact emanating from anterior communicating artery and right MCA bifurcation aneurysm coils. Dictated by Harvey Garcia MD @ 04/27/2025 1:39:39 PM (Electronically Signed)
== END 2025-04-27 10:08 | disposition home or self-care (01) ==
LOC: MRI 10:08
PROVIDERS: PCP Physician Assistant Medical; Visit Provider Physician Assistant Medical
DX: R41.89 Other symptoms and signs involving cognitive functions and awareness (principal); I67.89 Other cerebrovascular disease; R42 Dizziness and giddiness; R51.9 Headache, unspecified; Z95.2 Presence of prosthetic heart valve; H25.89 Other age-related cataract
CPT/HCPCS: 70553; A9575

== ENCOUNTER 2025-05-11 13:00 | Outpatient (CLI) | payer MEDICARE, SELFPAY | END 2025-05-11 13:01 | disposition home or self-care (01) | LOC: NFLDREF 05-15 16:57 | PROVIDERS: PCP Physician Assistant Medical; Referring Provider Physician Assistant Medical; Visit Provider Internal Medicine Nephrology | DX: I10 Essential (primary) hypertension (principal) | CPT/HCPCS: 80069 ==

== ENCOUNTER 2025-05-13 12:23 | Outpatient (CLI) | payer MEDICARE, SELFPAY ==
--- NOTE | 2025-05-13 13:00 | CRLHL7_ITS ---
For Patients: As a result of the Century Cures Act, medical imaging exams and procedure reports are released immediately into your electronic medical record. You may view this report before your referring provider. If you have questions, please contact your health care provider. XR DXA Bone Mineral Density (BMD) Reason for exam: Long-term (current) use of aromatase inhibitors. Current height (in): 65.0. Weight (lb): 145.0. Menopause age: 50. Ethnicity: White. 1. Have you had a previous hip or vertebral fracture? No. 2. Have you had any fractures during your adult life which did not result from significant trauma (e.g., auto accident)? No. 3. Did either of your parents have a hip fracture? No. 4. Do you smoke? No. 5. Have you ever taken Glucocorticoids? No. 6. Do you have rheumatoid arthritis? No. 7. Do you have secondary osteoporosis? No. 8. Do you drink 3 or more alcoholic drinks per day? No. 9. Are you being treated for osteoporosis? No. 10. Have you ever taken any of the following medications: Actonel, Evista, Fosamax, Miacalcin, Reclast, Boniva, Forteo, HRT (i.e. estrogen/hormone therapy), Protelos, Prolia, Vitamin D, Calcium, other ??? please specify. ANSWER: Yes, Evista, vitamin D, calcium. 11. Do you have any of the following medical conditions: Anorexia or bulimia, asthma or emphysema, end stage renal disease, hyperparathyroidism, any seizure disorders, cancer, inflammatory bowel diseases, hysterectomy, other ??? please specify. ANSWER: Yes, cancer. 12. What was your maximum height (inches)? 66.5. 13. Do you perform weight bearing exercise regularly? No. 14. Do you regularly consume dairy products? Yes. 15. Do you drink caffeinated beverages? Yes. 16. At what age did your period start? 9. 17. Are you premenopausal? No. 18. How many full term pregnancies have you had? 2. 19. Have you ever missed your period for more than 6 months in a row (not including or menopause)? No. TECHNIQUE: Bone mineral density study was performed using the [employer]. FINDINGS: The results of the study expressed as bone mineral density (BMD) are as follows: Lumbar spine L1 to L2: BMD: 0.894 g/cm2. T-score: -0.8. Z-score: 1.6. Neck Left: BMD: 0.687 g/cm2. T-score: -1.5. Z-score: 0.7. Right: BMD: 0.693 g/cm2. T-score: -1.4. Z-score: 0.8. Total Left: BMD: 0.741 g/cm2. T-score: -1.6. Z-score: 0.2. Right: BMD: 0.780 g/cm2. T-score: -1.3. Z-score: 0.6. IMPRESSION: Osteopenia. *Comparison exams done prior to 10/2019 were performed on different unit, [employer] [facility]. COMPARISON: Compared with scan of 05/10/2023, the bone mineral density has decreased by 1.5 percent at the spine and decreased by 2.6 percent at the hip. Compared with scan of 01/13/2021, the bone mineral density has increased by 2.5 percent at the spine and decreased by 0.1 percent at the hip. FRAX 10-year Fracture Risk Major Osteoporotic Fracture: 12 percent Hip Fracture: 2.5 percent Reported Risk Factors: [place] () Neck BMD=0.687, BMI=24.1 Christiano Stewart M.D. Diagnostic Radiologist [email or web address] bM/Dictated by: Christiano Stewart MD @ 05/13/2025 3:57:00 PM (Electronically Signed)
== END 2025-05-13 12:24 | disposition home or self-care (01) ==
LOC: RAD 12:24
PROVIDERS: PCP Physician Assistant Medical; Visit Provider Physician Assistant
DX: M85.89 Other specified disorders of bone density and structure, multiple sites (principal); Z79.811 Long term (current) use of aromatase inhibitors
CPT/HCPCS: 77080